=== PATIENT | female | born 1990 | race Two or more races ===

== ENCOUNTER 2024-05-23 06:37 | Emergency (ER) | payer MEDICAID, SELFPAY ==
[2024-05-23 06:38] VITALS: BMI 33.9
[2024-05-23 06:46] VITALS: BP 125/87; PULSE 116; RESP 20; TEMP 37; O2SAT 97
--- NOTE | 2024-05-23 06:49 | XR_ITS ---
Examination: CT abdomen and pelvis without contrast. Coronal 3-D reconstructions. Sagittal 2-D reconstructions. Date and time of exam:May 23, 2024 0921 hrs. Indications: Upper and lower abdominal pain with nausea vomiting today CTDI: vol (mGy): 11.36 DLP: (mGycm): 685 Technique: Axial images of the abdomen have been obtained, 3 mm slice thickness Intravenous contrast material has not been administered. Low dose protocols were performed. One or more of the following dose reduction techniques were used; automated exposure control, adjustment of the mA and/or KV according to patient size, use of iterative reconstruction technique. Findings: Fatty liver Spleen not enlarged. Contracted gallbladder Normal pancreas normal adrenal glands. No renal or ureteral calculi, no hydronephrosis. Normal appendix No bowel obstruction No diverticulitis Anteverted uterus Urinary bladder intact Impression: No renal or ureteral calculi, no hydronephrosis Moderate hepatomegaly fatty liver Normal appendix No bowel obstruction or diverticulitis
--- NOTE | 2024-05-23 06:49 | PD.EDADULT ---
ED General RME/HPI General Chief complaint: General Adult/Misc Complain Stated complaint: ABD PAIN,VOMITING,CRAMPS IN LEGS, LOWER BACK PAIN Time Seen by Provider: 05/23/24 06:38 Source: patient Arrival date/time: 05/23/24 06:37 33-year-old female with a history of type 2 diabetes presents to the emergency room with a chief complaint of left-sided flank pain, left lower abdominal pain and vomiting x 2 days Mode of arrival: ambulatory Limitations: no limitations Related Data Previous Rx's ?Medication ?Instructions ?Recorded ondansetron 4 mg disintegrating 4 mg PO Q8H PRN nausea and 12/30/23 tablet vomiting #30 tabs ibuprofen 600 mg tablet 600 mg PO Q8H PRN fever or pain 05/23/24 #20 tabs ondansetron 4 mg disintegrating 4 mg PO Q8H PRN nausea and 05/23/24 tablet vomiting #14 tabs Allergies Allergy/AdvReac Type Severity Reaction Status Date / Time No Known Allergies Allergy Verified 05/23/24 06:38 Review of Systems Review of Systems Systems Reviewed: All systems reviewed, normal except as documented Constitutional Constitutional: Reports system reviewed and no additional complaints, except as documented, Denies fatigue, Denies fever(s), Denies headache(s) and Denies weakness Eyes Eyes: Reports system reviewed and no additional complaints, except as documented, Denies blurry vision and Denies change in vision ENT Ears, Nose, Mouth, and Throat: Reports system reviewed and no additional complaints, except as documented, Denies otalgia, Denies headache(s), Denies nasal congestion, Denies throat swelling and Denies vertigo Cardiovascular Cardiovascular: Reports system reviewed and no additional complaints, except as documented, Denies chest pain, Denies dyspnea and Denies dyspnea on exertion Respiratory Respiratory: Reports system reviewed and no additional complaints, except as documented, Denies chest congestion, Denies cough, Denies dyspnea, Denies dyspnea on exertion and Denies wheezing Gastrointestinal Gastrointestinal: Reports system reviewed and no additional complaints, except as documented, Reports abdominal pain, Reports cramping, Reports nausea and Reports vomiting Genitourinary Genitourinary: Reports system reviewed and no additional complaints, except as documented, Denies abnormal vaginal bleeding and Denies dysuria Musculoskeletal Musculoskeletal: Reports system reviewed and no additional complaints, except as documented and Denies back pain Integumentary/Breasts Skin/Breast: Reports system reviewed and no additional complaints, except as documented and Denies wounds Neurologic Neurologic: Reports system reviewed and no additional complaints, except as documented, Denies confusion, Denies headache(s), Denies lack of coordination, Denies vertigo and Denies weakness Psychiatric Psychiatric: Reports system reviewed and no additional complaints, except as documented, Denies anxiety, Denies confusion, Denies depression, Denies paranoia, Denies suicidal ideation and Denies tactile hallucinations Endocrine Endocrine: Reports system reviewed and no additional complaints, except as documented and Denies fatigue Hematologic/Lymphatic Hematologic/Lymphatic: Reports system reviewed and no additional complaints, except as documented and Denies lymphadenopathy Allergic/Immunologic Allergic/Immunologic: Reports system reviewed and no additional complaints, except as documented, Denies throat swelling, Denies urticaria and Denies wheezing ED Exam General Limitations: Present no limitations General appearance: Present alert and in no apparent distress Head Head exam: Present atraumatic Eye Eye exam: Present normal appearance, PERRL and EOMI ENT ENT exam: Present normal exam, normal oropharynx and mucous membranes moist Neck Neck exam: Present normal inspection, full ROM and trachea midline Chest Chest inspection: Present normal inspection and symmetric chest wall rise Respiratory Respiratory exam: Present normal lung sounds bilaterally Cardiovascular Cardiovascular exam: Present regular rate, normal rhythm and normal heart sounds Abdominal Exam Abdominal exam: Present soft, tenderness and normal bowel sounds Abdominal tenderness: Present LLQ and mild Extremities Exam Extremities exam: Present normal inspection and full ROM Back Exam Back exam: Present normal inspection, full ROM and CVA tenderness (L) Neurological Exam Neurological exam: Present alert, oriented X3 and CN II-XII intact Psychiatric Psychiatric exam: Present normal affect and normal mood Skin Skin exam: Present warm, dry, intact and normal color Course Quality Measures none Orders Category Date Time Status CT abdomen pelvis wo con Stat Exams 05/23/24 06:49 Completed CBC Stat Lab 05/23/24 07:10 Completed CMP [Comprehensive Metabolic Panel] Stat Lab 05/23/24 07:10 Completed HCG Qualitative,Urine Stat Lab 05/23/24 07:05 Completed Lipase Stat Lab 05/23/24 07:10 Completed UA [Urinalysis] Stat Lab 05/23/24 07:05 Completed Urine Culture Stat Lab 05/23/24 07:05 Received HYDROcodone*/APAP 5/325 [[place] 5/325] Med 05/23/24 06:49 Discontinued 1 tab PO X1 ONE Vital Signs Vital signs: Vital Signs Temperature 98.6 F 05/23/24 06:46 Pulse Rate 116 H 05/23/24 06:46 Respiratory Rate 20 05/23/24 06:46 Blood Pressure 125/87 H 05/23/24 06:46 Pulse Oximetry (%) 97 05/23/24 06:46 Oxygen Delivery Method Room Air 05/23/24 06:46 O2 saturation 97% within normal limits [facility] Patient data External records reviewed:: [facility] previous records Clinical information provided by:: patient Social determinants that could affect healthcare access:: none Patient has the following chronic illnesses:: No chronic illness How is presenting disease/condition affected by chronic disease/condition?: no chronic disease Evaluation data The following diagnostics were reviewed and interpreted by me:: lab results and radiology exam(s) Lab and/or radiology exams considered but not ordered:: Labs and radiology exams considered and ordered Interpretation Summary: CT abdomen and pelvis-Findings: Fatty liver Spleen not enlarged. Contracted gallbladder Normal pancreas normal adrenal glands. No renal or ureteral calculi, no hydronephrosis. Normal appendix No bowel obstruction No diverticulitis Anteverted uterus Urinary bladder intact Impression: No renal or ureteral calculi, no hydronephrosis Moderate hepatomegaly fatty liver Normal appendix No bowel obstruction or diverticulitis Medications Medications considered but not ordered:: Medication given Medication administrations:: Medication Administration History Discontinued Medications Hydrocodone Bitart/Acetaminophen (Hydrocodone/Apap 5/325 Tablet) 1 tab PO X1 ONE Stop: 05/23/24 06:50 Last Admin: 05/23/24 07:58 Dose: 1 tab Documented By: LP Medication given Consultations Consultation(s) initiated? (list below): No Diagnosis Differential Diagnosis ED Complaint MDM: Renal calculi/pyelonephritis/diverticulosis/gastroenteritis Most likely diagnosis given after review of the tests above:: Gastroenteritis Admission Indicated Admission indicated?: not indicated Explain why admission is indicated or not indicated:: N/A Admission Request Was there a request for admission?: No Disposition Plan Disposition Plan: Discharge Discharge Attestation Discharge Attestation: The patient and all family members were given an opportunity to ask questions and understood the discharge instructions. Discharge instructions specifically effects, indications for sooner follow up or return to the emergency department, and the expected course of current diagnosis. Patient condition: Stable Medical Decision Making MDM Narrative MDM Narrative: 33-year-old female with a history of type 2 diabetes presents to the emergency room with a chief complaint of left-sided flank pain, left lower abdominal pain and vomiting x 2 days Clinically the patient appears nontoxic and in no apparent distress. Patient is hemodynamically stable Physical examination shows left CVA tenderness with palpation and left lower abdominal tenderness with deep palpation. The patient has been vomiting for the last 2 days. The patient is afebrile and there is no tenderness or pain to the right side upper or lower CT of the abdomen and pelvis was negative for any acute findings. Urinalysis was negative CBC CMP were negative for any leukocytosis Patient was discharged and educated to follow-up with primary care provider in the next 24 to 48 hours and return to the emergency room for any evidence of worsening signs or symptoms Differential Diagnosis Differential Diagnosis: Renal calculi/pyelonephritis/diverticulosis/gastroenteritis Lab Data 05/23/24 07:10 05/23/24 07:10 Labs: Lab Results 05/23/24 05/23/24 Range/Units 07:05 07:10 WBC 6.9 (3.6-11.0) Thou/mm3 RBC 4.62 (4.00-5.20) Miln/mm3 Hgb 13.6 (12.0-16.0) g/dL Hct 38.9 (36.0-46.0) % MCV 84 (80-100) fL MCH 29.4 (25.0-35.0) pg MCHC 35.0 (31.0-37.0) g/dl RDW Std Deviation 41.1 (36.4-46.3) fL Plt Count 189 (140-440) Thou/mm3 Neut % (Auto) 57 (37-80) % Lymph % (Auto) 35 (10-50) % [place] % (Auto) 7 (0-12) % Eos % (Auto) 0 (0-10) % Baso % (Auto) 0 (0-2.5) % Neut # (Auto) 4.0 (1.8-7.7) Thou/mm3 Lymph # (Auto) 2.4 (1.0-4.8) Thou/mm3 [place] # (Auto) 0.5 (0.0-0.8) Thou/mm3 Eos # (Auto) 0.0 (0.0-0.5) Thou/mm3 Baso # (Auto) 0.0 (0.0-0.2) Thou/mm3 Immature Gran # (Auto) 0.03 H (0.00-0.00) Thou/mm3 Absolute Nucleated RBC 0.00 (0.00-0.00) Thou/mm3 Immature Gran % 0 (0-0) % Nucleated RBC % 0 (0) /100 WBC Sodium 137 (136-145) mMol/L Potassium 4.0 (3.4-5.1) mMol/L Chloride 103 (98-107) mMol/L Carbon Dioxide 26.1 (20.0-31.0) mMol/L Anion Gap 8 (7-16) BUN 12 (9-23) mg/dL Creatinine 0.9 (0.6-1.3) mg/dL Estim Creat Clear Calc 101.5 (>60) mL/min eGFR > 60 (60 - ) See Note BUN/Creatinine Ratio 13 (12-20) Ratio Glucose 155 H (74-106) mg/dL Calculated Osmolality 276 (275-295) Calcium 9.3 (8.3-10.6) mg/dL Corrected Calcium 9.3 (8.5-10.1) mg/dL Total Bilirubin 1.0 (0.3-1.2) mg/dL AST 37 H (0-34) U/L ALT 46 (10-49) U/L Alkaline Phosphatase 90 (46-116) U/L Total Protein 7.4 (5.7-8.2) gm/dL Albumin 4.4 (3.5-5.0) gm/dL Globulin 3.0 (2.3-3.5) gm/dL Albumin/Globulin Ratio 1.5 (1.2-2.2) Lipase 54 H (12-53) U/L Ur Collection Type Clean Catch Urine Color Yellow (Lt Yel-Yel) Urine Clarity Clear (Clear/Hazy) Urine pH 6.0 (5.0-7.0) Ur Specific [place] 1.037 H (1.001-1.035) Urine Protein 3+ A (Neg - Trace) Urine Glucose (UA) 4+ A (Negative) Urine Ketones Negative (Negative) Urine Blood 1+ A (Negative) Urine Nitrite Negative (Negative) Urine Bilirubin Negative (Negative) Urine Urobilinogen (Auto) Negative (0.0-1.0) mg/dL Ur Leukocyte Esterase Negative (Negative) Urine RBC 3 (0-3) /hpf Urine WBC 3 (0-5) /hpf Ur Squamous Epith Cells 2 (0-5) /hpf Urine Bacteria None (None) Urine HCG, Qual Negative Discharge Plan Plan Patient Disposition: HOME (Self Care) Disposition Comment: Stable Prescriptions/Referrals Prescriptions/Med Rec: New ibuprofen 600 mg tablet 600 mg PO Q8H PRN (Reason: fever or pain) Qty: 20 0RF ondansetron 4 mg tablet,disintegrating 4 mg PO Q8H PRN (Reason: nausea and vomiting) Qty: 14 0RF No Action ondansetron 4 mg tablet,disintegrating 4 mg PO Q8H PRN (Reason: nausea and vomiting) Qty: 30 0RF Referrals: Brady Stephens MD [Primary Care Provider] - In 1 week Problem List Clinical Impression: Gastroenteritis Patient/Caregiver Discharge Instructions Education Materials: Understanding Colitis, ED Gastroenteritis, Noninfectious Additional Instructions: Please follow-up with your primary care provider in the next 24 to 48 hours. Medication was sent to your pharmacy to help you with your symptoms For any evidence of worsening signs or symptoms return the emergency room immediately Print Language: Bhutanese Stand Alone Forms: Gisselle Award Info., Patient Portal Info Letter PA/SHAR Supervising Physician PA/SHAR Supervising Physician: Dr. MERCHANT
[2024-05-23 07:21] LABS: Collection Type, Urine Clean Catch
[2024-05-23 07:32] LABS: Basophils % (Auto) 0 % (0-2.5); Eosinophils % (Auto) 0 % (0-10); Hematocrit 38.9 % (36.0-46.0); Hemoglobin 13.6 g/dL (12.0-16.0); Immature Granulocytes % (Auto) 0 % (0-0); Immature Granulocytes Auto 0.03 Thou/mm3 (0.00-0.00); Lymphocytes % (Auto) 35 % (10-50); Mean Corpuscular Hemoglobin 29.4 pg (25.0-35.0); Mean Corpuscular Volume 84 fL (80-100); Monocytes # (Auto) 0.5 Thou/mm3 (0.0-0.8); Monocytes % (Auto) 7 % (0-12); Neutrophils % (Auto) 57 % (37-80); Nucleated Red Blood Cell % 0 /100 WBC (0); Platelet Count 189 Thou/mm3 (140-440); RDW Standard Deviation 41.1 fL (36.4-46.3); Red Blood Count 4.62 Miln/mm3 (4.00-5.20); White Blood Count 6.9 Thou/mm3 (3.6-11.0)
[2024-05-23 07:36] LABS: Alanine Aminotransferase 46 U/L (10-49); Albumin, Serum 4.4 gm/dL (3.5-5.0); Albumin/Globulin Ratio 1.5 (1.2-2.2); Alkaline Phosphatase 90 U/L (46-116); Anion Gap 8 (7-16); Aspartate Amino Transferase 37 U/L (0-34); BUN/Creatinine Ratio 13 Ratio (12-20); Blood Urea Nitrogen 12 mg/dL (9-23); Calcium 9.3 mg/dL (8.3-10.6); Calcium (Corrected) 9.3 mg/dL (8.5-10.1); Carbon Dioxide 26.1 mMol/L (20.0-31.0); Chloride 103 mMol/L (98-107); Creatinine (Component) 0.9 mg/dL (0.6-1.3); Estimated Creatinine Clearance 101.5 mL/min (>60); Glucose 155 mg/dL (74-106); Lipase 54 U/L (12-53); Osmolality,Calculated 276 (275-295); Sodium 137 mMol/L (136-145); Total Protein 7.4 gm/dL (5.7-8.2); eGFR > 60 See Note
[2024-05-23 07:39] LABS: HCG Qualitative,Urine Negative
[2024-05-23 07:46] LABS: Bilirubin,Urine Negative (Negative); Blood,Urine 1+ (Negative); Clarity,Urine Clear (Clear/Hazy); Color,Urine Yellow (Lt Yel-Yel); Glucose, Urine 4+ (Negative); Ketones,Urine Negative (Negative); Leukocyte Esterase,Urine Negative (Negative); Nitrite,Urine Negative (Negative); Protein,Urine 3+ (Neg - Trace); RBC,Urine 3 /hpf (0-3); Specific Gravity,Urine 1.037 (1.001-1.035); Squamous Epithelial Cell,Urine 2 /hpf (0-5); Urobilinogen,Urine Negative mg/dL (0.0-1.0); WBC,Urine 3 /hpf (0-5)
[2024-05-23] MEDS: HYDROcodone/APAP 5/325 TABLET 1 TAB PO (07:58)
[2024-05-23 09:27] VITALS: BP 115/79; PULSE 99; RESP 18; TEMP 36.8; O2SAT 97
[2024-05-23 10:52] LABS: Lymphocytes # (Auto) 2.4 Thou/mm3 (1.0-4.8)
== END 2024-05-23 10:24 | disposition home or self-care (01) ==
PROVIDERS: Nurse Practitioner Family; Emergency Provider Emergency Medicine; PCP Family Medicine
DX: K52.9 Noninfective gastroenteritis and colitis, unspecified (principal)
CPT/HCPCS: 36415; 74176; 80053; 81001; 81025; 83690; 85025; 87086; 99284; A9270

== ENCOUNTER 2024-07-09 11:31 | Emergency (ER) | payer MEDICAID, SELFPAY ==
[2024-07-09 11:34] VITALS: BMI 32.8
[2024-07-09 11:52] VITALS: BP 152/95; PULSE 96; RESP 18; TEMP 36.7; O2SAT 100
--- NOTE | 2024-07-09 11:55 | EDNOTE_ITS ---
<Statement entered by Gwen Meraz MD - 07/15/24 02:10> As co-signing physician, I was present and available for consult prn. I concur with the plan and care as documented by the midlevel provider. ED General RME/HPI General Chief complaint: Vaginal Bleeding Stated complaint: VAG BLEEDING +PREG TEST 2 DAYS AGO Time Seen by Provider: 07/09/24 11:43 Arrival date/time: 07/09/24 11:31 CC: Vaginal spotting with lower abdominal cramping low back pain HPI onset this morning. Patient is a G3, P1 last menstrual cycle estimated in March. Denies fever chills shortness of breath difficulty breathing. Denies any bloody urination painful urination diarrhea or constipation. Related Data Previous Rx's ?Medication ?Instructions ?Recorded ondansetron 4 mg disintegrating 4 mg PO Q8H PRN nausea and 12/30/23 tablet vomiting #30 tabs ibuprofen 600 mg tablet 600 mg PO Q8H PRN fever or p ain 05/23/24 #20 tabs ondansetron 4 mg disintegrating 4 mg PO Q8H PRN nausea and 05/23/24 tablet vomiting #14 tabs Allergies Allergy/AdvReac Type Severity Reaction Status Date / Time No Known Allergies Allergy Verified 07/10/24 10:45 Review of Systems Review of Systems Narrative Review of Systems: GEN: No fever, no chills, no weight loss EYES: No discharge, no visual changes, no pain HEENT: No ear pain, no congestion, no sore throat PULM: No shortness of breath, no cough, no congestion CV: No chest pain, no dyspnea on exertion, no palpitations GI: No nausea, no vomiting, no diarrhea, no pain, no constipation : No frequency, no urgency, no dysuria MUSC/SKEL: No joint pain, no back pain SKIN: No rash PSYCH: No hallucinations, no depression HEME/LYMPH: No easy bleeding or bruising tendencies NEURO: No weakness, no headache Past Medical History Past Medical History CARDIAC: Negative Congestive Heart Failure RESPIRATORY: Negative Chronic Obstructive Pulmonary Disease (COPD) GENITOURINARY: Negative Renal Disease ENDOCRINE: Positive Diabetes Mellitus Type 2; Negative Diabetes Mellitus Type 1 Social History SMOKING STATUS: Never smoker ED Exam Narrative Physical exam: [General: Obese not in any acute distress Head normocephalic HEENT: Within acceptable limits Neck is supple nontender Chest equal chest rise nontender to palpation Respiratory: Clear to auscultation no wheezes crackles or rubs CV: Rate rhythm is regular no murmurs rubs or clicks Abdomen is distended secondary to body habitus soft nontender no masses positive bowel sounds all 4 quadrants Back: No CVA tenderness no spinous process tenderness from cervical spine thoracic and lumbar spine Skin: Intact no petechiae rash induration ulceration or crepitus Extremities: Moving all extremities against resistance cap refill less than 2 seconds neurosensory intact Neuro: Awake alert oriented x3 Glascow coma 15 no focal deficits] Course Quality Measures none Orders Category Date Time Status ABO/RH Type Stat Lab 07/09/24 12:08 Completed Beta HCG,Quantitative Stat Lab 07/09/24 12:08 Completed CBC Stat Lab 07/09/24 12:08 Completed CMP [Comprehensive Metabolic Panel] Stat Lab 07/09/24 12:08 Completed Vital Signs Vital signs: Vital Signs Temperature 98.0 F 07/09/24 11:52 Pulse Rate 96 07/09/24 11:52 Respiratory Rate 18 07/09/24 11:52 Blood Pressure 152/95 H 07/09/24 11:52 Pulse Oximetry (%) 100 07/09/24 11:52 Oxygen Delivery Method Room Air 07/09/24 11:52 Discharge Plan Plan Patient Disposition: Left Against Medical Advice Prescriptions/Referrals Prescriptions/Med Rec: No Action ibuprofen 600 mg tablet 600 mg PO Q8H PRN (Reason: fever or pain) Qty: 20 0RF ondansetron 4 mg tablet,disintegrating 4 mg PO Q8H PRN (Reason: nausea and vomiting) Qty: 14 0RF ondansetron 4 mg tablet,disintegrating 4 mg PO Q8H PRN (Reason: nausea and vomiting) Qty: 30 0RF Referrals: Brady Stephens MD [Primary Care Provider] - In 1 week Problem List Clinical Impression: Left against medical advice Patient/Caregiver Discharge Instructions Print Language: Macedonian PA/CUSHION BUILDER Supervising Physician PA/CUSHION BUILDER Supervising Physician: Javid Patterson ENP MDM Patient Acuity Low Acuity (complete MDM as needed) Clinical Information Provided by: patient Medical Records reviewed [facility] Chronic Illness/Social Conditions which may negatively complicate care or outcome(s)-explain: None or not applicable
[2024-07-09 12:28] LABS: Basophils % (Auto) 0 % (0-2.5); Eosinophils # (Auto) 0.1 Thou/mm3 (0.0-0.5); Eosinophils % (Auto) 2 % (0-10); Hematocrit 36.7 % (36.0-46.0); Hemoglobin 12.9 g/dL (12.0-16.0); Immature Granulocytes % (Auto) 0 % (0-0); Immature Granulocytes Auto 0.03 Thou/mm3 (0.00-0.00); Lymphocytes % (Auto) 30 % (10-50); Mean Corpuscular HGB Conc 35.1 g/dl (31.0-37.0); Mean Corpuscular Hemoglobin 29.3 pg (25.0-35.0); Mean Corpuscular Volume 83 fL (80-100); Monocytes # (Auto) 0.4 Thou/mm3 (0.0-0.8); Monocytes % (Auto) 7 % (0-12); Neutrophils # (Auto) 4.1 Thou/mm3 (1.8-7.7); Neutrophils % (Auto) 61 % (37-80); Nucleated Red Blood Cell % 0 /100 WBC (0); Platelet Count 246 Thou/mm3 (140-440); RDW Standard Deviation 39.5 fL (36.4-46.3); White Blood Count 6.8 Thou/mm3 (3.6-11.0)
[2024-07-09 12:45] LABS: Alanine Aminotransferase 16 U/L (10-49); Albumin, Serum 4.5 gm/dL (3.5-5.0); Albumin/Globulin Ratio 1.6 (1.2-2.2); Alkaline Phosphatase 64 U/L (46-116); Anion Gap 9 (7-16); Aspartate Amino Transferase 15 U/L (0-34); BUN/Creatinine Ratio 13 Ratio (12-20); Bilirubin,Total 0.4 mg/dL (0.3-1.2); Blood Urea Nitrogen 9 mg/dL (9-23); Calcium 9.6 mg/dL (8.3-10.6); Calcium (Corrected) 9.6 mg/dL (8.5-10.1); Carbon Dioxide 21.7 mMol/L (20.0-31.0); Chloride 101 mMol/L (98-107); Creatinine (Component) 0.7 mg/dL (0.6-1.3); Estimated Creatinine Clearance 128.2 mL/min (>60); Globulin 2.8 gm/dL (2.3-3.5); Glucose 273 mg/dL (74-106); Osmolality,Calculated 273 (275-295); Sodium 132 mMol/L (136-145); Total Protein 7.3 gm/dL (5.7-8.2); eGFR > 60 See Note
[2024-07-09 12:54] LABS: Beta HCG,Quantitative 3223 mIU/mL (<5.0)
--- NOTE | 2024-07-09 13:29 | PC.NURSE ---
AMA FORM SIGNED, PATIENT STATES SHE COULD NOT WAIT FOR US. ENCOURAGED TO RETURN.
== END 2024-07-09 13:31 | disposition left against medical advice (07) ==
LOC: SERX 12:57
PROVIDERS: Registered Nurse General Practice; Emergency Provider Emergency Medicine; PCP Family Medicine
DX: N93.9 Abnormal uterine and vaginal bleeding, unspecified (principal); R10.30 Lower abdominal pain, unspecified; M54.50 Low back pain, unspecified; Z53.29 Procedure and treatment not carried out because of patient's decision for other reasons
CPT/HCPCS: 36415; 80053; 81001; 84702; 85025; 86900; 86901; 99281

== ENCOUNTER 2024-07-10 10:41 | Emergency (ER) | payer MEDICAID, SELFPAY ==
[2024-07-10 10:42] VITALS: BMI 32.8
[2024-07-10 10:50] VITALS: BP 147/92; PULSE 94; RESP 16; TEMP 36.8; O2SAT 99
--- NOTE | 2024-07-10 10:50 | EDNOTE_ITS ---
ED OB Contraction Preg RMI/HPI General Chief complaint: Vaginal Bleeding Stated complaint: POSSIBLE 12WK PREG HAVING VAG SPOTTING Time Seen by Provider: 07/10/24 10:47 Arrival date/time: 07/10/24 10:41 33-year-old female G3, presents the emergency department today states she has had vaginal spotting she reports he is but does not know how far along she is reports her periods are irregular last period that was in March there are no other associated symptoms or aggravating factors no other modifying factors, patient denies taking medication before coming to ER today Limitations: no limitations Related Data Previous Rx's ?Medication ?Instructions ?Recorded ondansetron 4 mg disintegrating 4 mg PO Q8H PRN nausea and 12/30/23 tablet vomiting #30 tabs ibuprofen 600 mg tablet 600 mg PO Q8H PRN fever or p ain 05/23/24 #20 tabs ondansetron 4 mg disintegrating 4 mg PO Q8H PRN nausea and 05/23/24 tablet vomiting #14 tabs Allergies Allergy/AdvReac Type Severity Reaction Status Date / Time No Known Allergies Allergy Verified 07/10/24 10:45 Review of Systems Review of Systems Systems Reviewed: All systems reviewed, normal except as documented Constitutional Constitutional: Reports system reviewed and no additional complaints, except as documented, Denies fever(s) and Denies headache(s) Eyes Eyes: Reports system reviewed and no additional complaints, except as documented and Denies blurry vision ENT Ears, Nose, Mouth, and Throat: Reports system reviewed and no additional complaints, except as documented, Denies headache(s), Denies nasal congestion and Denies nasal discharge Cardiovascular Cardiovascular: Reports system reviewed and no additional complaints, except as documented, Denies chest pain and Denies dyspnea Respiratory Respiratory: Reports system reviewed and no additional complaints, except as documented, Denies chest congestion, Denies cough and Denies dyspnea Gastrointestinal Gastrointestinal: Reports system reviewed and no additional complaints, except as documented and Denies abdominal pain Genitourinary Genitourinary: Reports system reviewed and no additional complaints, except as documented and Reports abnormal vaginal bleeding Integumentary/Breasts Skin/Breast: Reports system reviewed and no additional complaints, except as documented and Denies rash Neurologic Neurologic: Reports system reviewed and no additional complaints, except as documented, Reports as per HPI and Denies headache(s) Past Medical History Past Medical History CARDIAC: Negative Congestive Heart Failure RESPIRATORY: Negative Chronic Obstructive Pulmonary Disease (COPD) GENITOURINARY: Negative Renal Disease ENDOCRINE: Positive Diabetes Mellitus Type 2; Negative Diabetes Mellitus Type 1 Social History SMOKING STATUS: Never smoker ED Exam General Limitations: Present no limitations General appearance: Present alert and in no apparent distress Head Head exam: Present atraumatic Eye Eye exam: Present normal appearance, PERRL and EOMI ENT ENT exam: Present normal exam, normal oropharynx and mucous membranes moist Neck Neck exam: Present normal inspection, full ROM and trachea midline Chest Chest inspection: Present normal inspection and symmetric chest wall rise Respiratory Respiratory exam: Present normal lung sounds bilaterally Cardiovascular Cardiovascular exam: Present regular rate, normal rhythm and normal heart sounds Abdominal Exam Abdominal exam: Present soft and normal bowel sounds Extremities Exam Extremities exam: Present normal inspection and full ROM Back Exam Back exam: Present normal inspection and full ROM Neurological Exam Neurological exam: Present alert, oriented X3 and CN II-XII intact Psychiatric Psychiatric exam: Present normal affect and normal mood Skin Skin exam: Present warm, dry, intact and normal color Course Quality Measures none Orders Category Date Time Status US OB <= 14 weeks fetus Stat Exams 07/10/24 10:50 Completed Beta HCG,Quantitative Stat Lab 07/10/24 10:54 Completed CBC Stat Lab 07/10/24 10:54 Completed Comprehensive Metabolic Panel Stat Lab 07/10/24 10:54 Completed UA [Urinalysis] Stat Lab 07/10/24 11:10 Completed Urine Culture Stat Lab 07/10/24 11:10 Received Vital Signs Vital signs: Vital Signs Temperature 98.2 F 07/10/24 10:50 Pulse Rate 94 07/10/24 10:50 Respiratory Rate 16 07/10/24 10:50 Blood Pressure 147/92 H 07/10/24 10:50 Pulse Oximetry (%) 99 07/10/24 10:50 Oxygen Delivery Method Room Air 07/10/24 10:50 O2 saturation 98% on room air within normal limits Vaginal Bleeding MDM Narrative MDM Narrative: 33-year-old female G3, presents the emergency department today states she has had vaginal spotting she reports he is but does not know how far along she is reports her periods are irregular last period that was in March there are no other associated symptoms or aggravating factors no other modifying factors, patient denies taking medication before coming to ER today On exam patient well-appearing patient does not appear ill or toxic in no acute distress Patient was seen yesterday but eloped prior to lab work and imaging being com pleted Lab work and imaging completed at this time Based on examination lab work and imaging patient either has a early or the patient has a demise. Explained to the patient that this is her baseline today and she needs to have repeat lab work and imaging in 3 to 5 days to confirm viable at hCG is trending upward Patient data External records reviewed:: [facility] previous records Clinical information provided by:: patient Social determinants that could affect healthcare access:: none Patient has the following chronic illnesses:: diabetes How is presenting disease/condition affected by chronic disease/condition?: no chronic disease Evaluation data The following diagnostics were reviewed and interpreted by me:: lab results and radiology exam(s) Lab and/or radiology exams considered but not ordered:: Labs radiology obtained Interpretation Summary: Reviewed by me Medications / Prescriptions Medications or Prescriptions considered but not ordered:: Given Medication administrations:: Given Consultations Consultation(s) initiated? (list below): No Diagnosis Vaginal Bleeding Differential Diagnosis: missed and threatened Most likely diagnosis given after review of the tests above:: Vaginal bleeding Admission Indicated Admission indicated?: not indicated Admission Request Was there a request for admission?: No Disposition Plan Disposition Plan: Discharge Discharge Attestation Discharge Attestation: The patient and all family members were given an opportunity to ask questions and understood the discharge instructions. Discharge instructions specifically effects, indications for sooner follow up or return to the emergency department, and the expected course of current diagnosis. Patient condition: Stable Discharge Plan Plan Patient Disposition: HOME (Self Care) Disposition Comment: Stable Prescriptions/Referrals Prescriptions/Med Rec: No Action ibuprofen 600 mg tablet 600 mg PO Q8H PRN (Reason: fever or pain) Qty: 20 0RF ondansetron 4 mg tablet,disintegrating 4 mg PO Q8H PRN (Reason: nausea and vomiting) Qty: 14 0RF ondansetron 4 mg tablet,disintegrating 4 mg PO Q8H PRN (Reason: nausea and vomiting) Qty: 30 0RF Referrals: No Primary/Family,Physician [Primary Care Provider] - 07/11/24 Problem List Clinical Impression: Subchorionic bleed, , threatened Patient/Caregiver Discharge Instructions Education Materials: Bleeding During Early Additional Instructions: Please have repeat lab work and ultrasound in 1 week for worsening symptoms return immediately Print Language: Northern Irish Stand Alone Forms: Gisselle Award Info., Patient Portal Info Letter PA/THERMODYNAMICS ENGINEER Supervising Physician PA/THERMODYNAMICS ENGINEER Supervising Physician: Dr [email or web address]
--- NOTE | 2024-07-10 10:50 | XR_ITS ---
Examination: Complete OB ultrasound, less than 14 weeks, transabdominal Date and time of exam: July 11, 1999 2512 0 5:00 PM INDICATIONS: Vaginal bleeding beginning 3 days ago Technique: Obstetrical ultrasound images less than 14 weeks performed via transabdominal imaging Findings: Uterus 10.5 cm, intrauterine gestational sac 0.9 cm corresponds to 5 weeks 5 day gestational age No pole, no cardiac activity 8 x 13 mm subchorionic hemorrhage Right ovary 4.4 cm arterial flow 3.0 cm cyst Left ovary 3.8 cm arterial flow IMPRESSION: Empty intrauterine gestational sac corresponding to 5 weeks 5 day gestational age Recommend short-term follow-up transvaginal pelvic sonography to document viability
[2024-07-10 11:08] LABS: Basophils % (Auto) 0 % (0-2.5); Eosinophils # (Auto) 0.1 Thou/mm3 (0.0-0.5); Eosinophils % (Auto) 2 % (0-10); Hematocrit 37.1 % (36.0-46.0); Immature Granulocytes % (Auto) 0 % (0-0); Immature Granulocytes Auto 0.02 Thou/mm3 (0.00-0.00); Lymphocytes # (Auto) 2.4 Thou/mm3 (1.0-4.8); Lymphocytes % (Auto) 35 % (10-50); Mean Corpuscular Volume 83 fL (80-100); Monocytes # (Auto) 0.5 Thou/mm3 (0.0-0.8); Monocytes % (Auto) 7 % (0-12); Neutrophils # (Auto) 3.9 Thou/mm3 (1.8-7.7); Neutrophils % (Auto) 56 % (37-80); Nucleated Red Blood Cell % 0 /100 WBC (0); Platelet Count 256 Thou/mm3 (140-440); RDW Standard Deviation 39.1 fL (36.4-46.3); Red Blood Count 4.48 Miln/mm3 (4.00-5.20); White Blood Count 6.9 Thou/mm3 (3.6-11.0)
[2024-07-10 11:18] LABS: Collection Type, Urine Clean Catch
[2024-07-10 11:23] LABS: Bilirubin,Urine Negative (Negative); Blood,Urine Negative (Negative); Clarity,Urine Clear (Clear/Hazy); Color,Urine Yellow (Lt Yel-Yel); Glucose, Urine 2+ (Negative); Hyaline Casts,Urine < 1 /hpf (0-1); Ketones,Urine Negative (Negative); Leukocyte Esterase,Urine Negative (Negative); Nitrite,Urine Negative (Negative); PH,Urine 5.5 (5.0-7.0); Protein,Urine 2+ (Neg - Trace); RBC,Urine 5 /hpf (0-3); Specific Gravity,Urine 1.029 (1.001-1.035); Squamous Epithelial Cell,Urine 6 /hpf (0-5); Urobilinogen,Urine Negative mg/dL (0.0-1.0); WBC,Urine 3 /hpf (0-5)
[2024-07-10 11:26] LABS: Alanine Aminotransferase 15 U/L (10-49); Albumin, Serum 4.4 gm/dL (3.5-5.0); Albumin/Globulin Ratio 1.6 (1.2-2.2); Alkaline Phosphatase 64 U/L (46-116); Anion Gap 9 (7-16); Aspartate Amino Transferase 17 U/L (0-34); BUN/Creatinine Ratio 17 Ratio (12-20); Bilirubin,Total 0.5 mg/dL (0.3-1.2); Blood Urea Nitrogen 10 mg/dL (9-23); Calcium 9.6 mg/dL (8.3-10.6); Calcium (Corrected) 9.6 mg/dL (8.5-10.1); Carbon Dioxide 22.7 mMol/L (20.0-31.0); Chloride 103 mMol/L (98-107); Creatinine (Component) 0.6 mg/dL (0.6-1.3); Estimated Creatinine Clearance 149.6 mL/min (>60); Globulin 2.8 gm/dL (2.3-3.5); Glucose 192 mg/dL (74-106); Osmolality,Calculated 274 (275-295); Potassium 3.8 mMol/L (3.4-5.1); Sodium 135 mMol/L (136-145); Total Protein 7.2 gm/dL (5.7-8.2); eGFR > 60 See Note
[2024-07-10 11:49] LABS: Beta HCG,Quantitative 3903 mIU/mL (<5.0)
== END 2024-07-10 14:07 | disposition home or self-care (01) ==
PROVIDERS: Nurse Practitioner Primary Care; Emergency Provider Emergency Medicine
DX: O20.0 Threatened abortion (principal)
CPT/HCPCS: 36415; 76801; 80053; 81001; 84702; 85025; 87086; 99284

== ENCOUNTER 2024-07-16 08:53 | Emergency (ER) | payer MEDICAID, SELFPAY ==
--- NOTE | 2024-07-16 08:58 | XR_ITS ---
Examination: OB Transvaginal ultrasound of the pelvis, complete Technique: Transvaginal sonographic images pelvis performed using benoit scale imaging Exam date and time: July 16, 2024 1014 hours INDICATIONS: Empty intrauterine gestational sac on pelvic sonogram July 10, 2024, pelvic pain this week FINDINGS: Uterus 11.5 cm pole 0.4 cm corresponds to 6 week 0 day gestational age Cardiac motion 132 BPM Subchorionic hemorrhage 15 x 9 x 16 mm Right ovary 3.4 cm arterial flow 21 mm cyst Left ovary 4.1 cm arterial flow small follicles IMPRESSION: Viable intrauterine gestation 6 weeks 0 days.
[2024-07-16 09:06] VITALS: BP 131/88; PULSE 89; RESP 16; TEMP 36.8; O2SAT 99; BMI 34.4
[2024-07-16 09:17] LABS: Basophils % (Auto) 0 % (0-2.5); Eosinophils # (Auto) 0.2 Thou/mm3 (0.0-0.5); Eosinophils % (Auto) 2 % (0-10); Hematocrit 36.2 % (36.0-46.0); Hemoglobin 12.8 g/dL (12.0-16.0); Immature Granulocytes % (Auto) 0 % (0-0); Immature Granulocytes Auto 0.03 Thou/mm3 (0.00-0.00); Lymphocytes # (Auto) 2.6 Thou/mm3 (1.0-4.8); Lymphocytes % (Auto) 33 % (10-50); Mean Corpuscular HGB Conc 35.4 g/dl (31.0-37.0); Mean Corpuscular Volume 82 fL (80-100); Monocytes # (Auto) 0.6 Thou/mm3 (0.0-0.8); Monocytes % (Auto) 7 % (0-12); Neutrophils # (Auto) 4.6 Thou/mm3 (1.8-7.7); Neutrophils % (Auto) 57 % (37-80); Nucleated Red Blood Cell % 0 /100 WBC (0); Platelet Count 231 Thou/mm3 (140-440); RDW Standard Deviation 39.3 fL (36.4-46.3); Red Blood Count 4.41 Miln/mm3 (4.00-5.20)
[2024-07-16 09:49] LABS: Beta HCG,Quantitative > 5000 mIU/mL (<5.0)
--- NOTE | 2024-07-16 11:19 | EDNOTE_ITS ---
ED OB Contraction Preg RMI/HPI General Chief complaint: OB/Uterine Contractions Stated complaint: RETURNED FOR U/S & HCG INST LAST WEEK Time Seen by Provider: 07/16/24 08:56 Arrival date/time: 07/16/24 08:53 33-year-old female present to the Emergency Department today for repeat ultrasound lab work patient was seen by myself on last visit Limitations: no limitations Related Data Previous Rx's ?Medication ?Instructions ?Recorded ondansetron 4 mg disintegrating 4 mg PO Q8H PRN nausea and 12/30/23 tablet vomiting #30 tabs ibuprofen 600 mg tablet 600 mg PO Q8H PRN fever or p ain 05/23/24 #20 tabs ondansetron 4 mg disintegrating 4 mg PO Q8H PRN nausea and 05/23/24 tablet vomiting #14 tabs Allergies Allergy/AdvReac Type Severity Reaction Status Date / Time No Known Allergies Allergy Verified 07/16/24 08:55 Review of Systems Review of Systems Systems Reviewed: All systems reviewed, normal except as documented Constitutional Constitutional: Reports system reviewed and no additional complaints, except as documented, Denies fever(s) and Denies headache(s) Eyes Eyes: Reports system reviewed and no additional complaints, except as documented and Denies blurry vision ENT Ears, Nose, Mouth, and Throat: Reports system reviewed and no additional complaints, except as documented, Denies headache(s), Denies nasal congestion and Denies nasal discharge Cardiovascular Cardiovascular: Reports system reviewed and no additional complaints, except as documented, Denies chest pain and Denies dyspnea Respiratory Respiratory: Reports system reviewed and no additional complaints, except as documented, Denies chest congestion, Denies cough and Denies dyspnea Gastrointestinal Gastrointestinal: Reports system reviewed and no additional complaints, except as documented and Denies abdominal pain Genitourinary Genitourinary: Reports system reviewed and no additional complaints, except as documented and Reports abnormal vaginal bleeding Integumentary/Breasts Skin/Breast: Reports system reviewed and no additional complaints, except as documented and Denies rash Neurologic Neurologic: Reports system reviewed and no additional complaints, except as documented, Reports as per HPI and Denies headache(s) Past Medical History Past Medical History CARDIAC: Negative Congestive Heart Failure RESPIRATORY: Negative Chronic Obstructive Pulmonary Disease (COPD) GENITOURINARY: Negative Renal Disease ENDOCRINE: Positive Diabetes Mellitus Type 2; Negative Diabetes Mellitus Type 1 Surgical History SURGICAL: Positive Section Social History SMOKING STATUS: Never smoker ED Exam General Limitations: Present no limitations General appearance: Present alert and in no apparent distress Head Head exam: Present atraumatic, normocephalic and normal inspection Eye Eye exam: Present normal appearance, PERRL and EOMI; Absent conjunctival injection ENT ENT exam: Present normal exam, normal oropharynx and mucous membranes moist Neck Neck exam: Present normal inspection, full ROM and trachea midline Chest Chest inspection: Present normal inspection and symmetric chest wall rise Respiratory Respiratory exam: Present normal lung sounds bilaterally; Absent respiratory distress Cardiovascular Cardiovascular exam: Present regular rate, normal rhythm and normal heart sounds Abdominal Exam Abdominal exam: Present soft and normal bowel sounds; Absent distention, tenderness, guarding, rebound or rigidity Extremities Exam Extremities exam: Present normal inspection and full ROM Back Exam Back exam: Present normal inspection and full ROM Neurological Exam Neurological exam: Present alert, oriented X3, CN II-XII intact, normal gait and reflexes normal; Absent motor sensory deficit Psychiatric Psychiatric exam: Present normal affect and normal mood Skin Skin exam: Present warm, dry, intact and normal color Course Quality Measures none Orders Category Date Time Status US OB transvaginal Stat Exams 07/16/24 08:58 Completed Beta HCG,Quantitative Stat Lab 07/16/24 09:03 Completed CBC Stat Lab 07/16/24 09:03 Completed Vital Signs Vital signs: Vital Signs Temperature 98.2 F 07/16/24 09:06 Pulse Rate 89 07/16/24 09:06 Respiratory Rate 16 07/16/24 09:06 Blood Pressure 131/88 H 07/16/24 09:06 Pulse Oximetry (%) 99 07/16/24 09:06 Oxygen Delivery Method Room Air 07/16/24 09:06 O2 saturation 99% room air within limits OB/Uterine Contractions MDM Narrative MDM Narrative:: 33-year-old female present to the Emergency Department today for repeat ultraso und lab work patient was seen by myself on last visit On exam patient well-appearing patient does not appear ill or toxic no acute distress Lab work and imaging obtained no acute emergent findings Patient discharged home in no distress to follow-up with primary care doctor in the next 24 to 48 hours and for any worsening symptoms to return to the ER immediately Patient data External records reviewed:: [facility] previous records Clinical information provided by:: patient Social determinants that could affect healthcare access:: none Patient has the following chronic illnesses:: None How is presenting disease/condition affected by chronic disease/condition?: no chronic disease Evaluation data The following diagnostics were reviewed and interpreted by me:: lab results and radiology exam(s) Lab and/or radiology exams considered but not ordered:: Labs radiology obtain Interpretation Summary: Reviewed by me Medications / Prescriptions Medications or Prescriptions considered but not ordered:: Given Medication administrations:: Given Consultations Consultation(s) initiated? (list below): No Diagnosis OB Contractions Differential Diagnosis: other (Missed , threatened ) Most likely diagnosis given after review of the tests above:: Subchronic bleed , viable Admission Indicated Admission indicated?: not indicated Explain why admission is indicated or not indicated:: No criteria Admission Request Was there a request for admission?: No Disposition Plan Disposition Plan: Discharge Discharge Attestation Discharge Attestation: The patient and all family members were given an opportunity to ask questions and understood the discharge instructions. Discharge instructions specifically effects, indications for sooner follow up or return to the emergency department, and the expected course of current diagnosis. Patient condition: Stable Discharge Plan Plan Patient Disposition: HOME (Self Care) Discharge Disposition comment: Stable Prescriptions/Referrals Prescriptions/Med Rec: No Action ibuprofen 600 mg tablet 600 mg PO Q8H PRN (Reason: fever or pain) Qty: 20 0RF ondansetron 4 mg tablet,disintegrating 4 mg PO Q8H PRN (Reason: nausea and vomiting) Qty: 14 0RF ondansetron 4 mg tablet,disintegrating 4 mg PO Q8H PRN (Reason: nausea and vomiting) Qty: 30 0RF Referrals: Brady Stephens MD [Primary Care Provider] - In 1 week Problem List Clinical Impression: Subchorionic bleed Patient/Caregiver Discharge Instructions Education Materials: Bleeding During Early Additional Instructions: Please follow up with your COATER OPERATOR doctor in the next 24-48hrs for any worsening symptoms return here immediately Print Language: Polish Stand Alone Forms: Gisselle Award Info., Patient Portal Info Letter PA/FIELD [employer] FIRE CONTROL MAN Supervising Physician PA/[employer]OL MAN Supervising Physician: Dr. torres
[2024-07-16 11:26] VITALS: BP 139/93; PULSE 99; RESP 18; TEMP 36.7; O2SAT 100
== END 2024-07-16 11:28 | disposition home or self-care (01) ==
PROVIDERS: Nurse Practitioner Primary Care; Emergency Provider Emergency Medicine; PCP Family Medicine
DX: O20.8 Other hemorrhage in early pregnancy (principal); Z3A.01 Less than 8 weeks gestation of pregnancy
CPT/HCPCS: 36415; 76817; 84702; 85025; 99284

== ENCOUNTER 2024-07-19 09:42 | Outpatient (AMB) | payer MEDICAID, SELFPAY ==
--- NOTE | 2024-07-19 09:53 | OBCLNT_ITS ---
Allergies/Home Meds Allergies & Medications Allergies No Known Allergies Allergy (Verified 07/19/24 09:54) Medication Reconciliation ondansetron 4 mg disintegrating tablet 4 mg PO Q8H PRN nausea and vomiting #30 tabs 12/30/23 [Rx] ibuprofen 600 mg tablet 600 mg PO Q8H PRN fever or pain #20 tabs 05/23/24 [Rx] ondansetron 4 mg disintegrating tablet 4 mg PO Q8H PRN nausea and vomiting #14 tabs 05/23/24 [Rx] insulin aspart U-100 100 unit/mL (3 mL) subcutaneous pen (Novolog FlexPen U-100 Insulin aspart) 15 unit subcut TID 07/19/24 [History Confirmed 07/19/24] insulin detemir U-100 100 unit/mL (3 mL) subcutaneous pen unit subcut 07/19/24 [History Confirmed 07/19/24] labetalol 200 mg tablet 200 mg PO BID 30 days #60 tabs 07/19/24 [Rx] vits no.126-ferrous fum 28 mg iron-folic acid 800 mcg tablet (Classic ) 0.126 - 28 tab PO DAILY 30 days #60 tabs 07/19/24 [Rx] Intake Visit Data Collection New Patient or Established: Established Patient (seen at [facility] within 3 years) Reason for Visit:: OBI Seen by Clinical Staff ONLY (RN/MA): No Fur Blowing Machine Operator Required: No Do You Feel Safe at Home: Yes Authorities Contacted: N/A PCP or OBGYN visit in last 3 months: Yes Date of Last PCP or OBGYN visit: 07/16/24 Hx Now: Yes Are you currently on any form of Control: No Last menstrual period: 04/07/24 Pain Present Currently: No Pain Scale Used: Mccarty-Ohara/Numerical Pain scale:: 0 Smoking Status Smoking Status: Never smoker Questionnaires Covid-19 Vaccine Questionnaire Has patient been vacinated for Covid-19 Have you been vacinated for Covid-19: No PHQ-9 PHQ-2 Over the last 2 weeks, how often have you been bothered by any of the following problems? 1. Little interest or pleasure in doing things: not at all 2. Feeling down, depressed, or hopeless: not at all Total score: 0 PHQ-9 3. Trouble falling or staying asleep, or sleeping too much: Not at all 4. Feeling tired or having little energy: Not at all 5. Poor appetite or overeating: Not at all 6. Feeling bad about yourself - or that you are a failure or have let yourself or your family down: Not at all 7. Trouble concentrating on things, such as reading the newspaper or watching television: Not at all 8. Moving or speaking so slowly that other people could have noticed? - Or the opposite - being so fidgety or restless that you have been moving around a lot more than usual: not at all 9. Thoughts that you would be better off or of hurting yourself in some way: Not at all Total score: 0 If you checked off any problems, how difficult have these problems made it for you to do your work, take care of things at home, or get along with other people?: not difficult at all Source: Developed by Drs. Duy Norton, Namita Maciel, Ashok Walker and colleagues, with an educational gabrielle from [employer]. Depression screen completed yes Social History Living Situation History Marital Status: Lives With: Family Housing: House Tobacco History Smoking Status: Never smoker Alcohol History Alcohol Intake: Never Domestic Abuse History Do You Feel Safe at Home: Yes Past Medical History Past Medical History Have you ever been diagnosed with any of the following: Cardiology Problems Congestive Heart Failure: No Respiratory Problems Chronic Obstructive Pulmonary Disease (COPD): No Genital/Urinary Problems Renal Disease: No Endocrine Problems Diabetes Mellitus Type 1: No Diabetes Mellitus Type 2: Yes History of Present Illness HPI Narrative 33-year-old 3 para 1 for OBI. Last period was April 07, 2024. However patient was seen in the ER with spotting July 16. Patient was 6 weeks on that day. EDC 03/13/2025 based on 6-week ultrasound on 16 July patient has a history of chronic hypertension. And she is taking lisinopril with good compliance. She also reports that she is type II diabetic. She takes NovoLog and metformin. Patient reports checking her sugars and they are all over the place. She also has been taking Ozempic until 2 weeks ago for weight loss. And a history of irregular menses. Her last Pap was 2019. Patient denies social habits. She is a previous section x 1. No bleeding or complaints of miscarriage at this time. Patient denies any discomforts early . Denies any bleeding or SAB complaints OB Initial Visit OB Flowsheet OB Flowsheet Initial Weight: Not Recorded Date -?-?-?-?-?-?-?-?-?-?-?-?- EGA Weight Edema CTX Effacement BP Fundal ht Pres Dilation Effacement Station Visit Note Alb Glu FHR Mov 07/19/24 -?-?-?-?-?-?-?-?-?-?-?-?- 6w 3d absent absent 33-year-ol d 2 para 1 for OBI. Previous C- section x 1. Patient is type II diabetic. She takes metformin thousand and NovoLog 38 units and then she also takes Levemir 32 units. Patient stopped taking her Ozempic 2 weeks ago. She has a history of irregular menses. Patient had a 6-week ultrasound July 16, 2024 and this dated her March 13, 2025. History of chronic hypertension. Patient takes lisinopril 2.5 daily. She denies any SAB complaints at this time. Denies any nausea and vomiting. The patient is taking vitamins. So I discussed SAB precautions with patient. Consulted with OB regarding medication for chronic hypertension. Patient will be changed to labetalol 200 mg twice daily and that was ordered to pharmacy. I also ordered prenatals. Discussed diet and glucometer testing. SAB precautions reviewed with patient. OB panel with CMP hCG and TSH ordered. And I scheduled patient for MFM referral due to the diabetes and hypertension advanced maternal age. 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 Thalassemia (Yi, Welsh, Mediterranean, or Background); MCV less than 80: Yes 3. Neural Tube Defect (Meningomyelocele, Spina Bifida, or Anencephaly): No 4. Congenital Heart Defect: No 5. Down Syndrome: No 6. Yariel-Sachs (Ashkenazi Latter Day, Cajun, Hungarian [place]): No 7. Shai Disease (Ashkenazi Latter Day): No 8. Familial Dysautonomia (Ashkenazi Latter Day): No 9. Sickle Cell Disease or Trait (): No 10. Hemophilia or other blood disorders: No 11. Muscular Dystrophy: No 12. Cystic Fibrosis: No 13. [place]'s Chorea: No 14. Mental Retardation/Autism: Yes (HER DAUGHTER ) 15. Other inherited genetic or chromosomal disorder: No 16. Maternal Metabolic Disorder (EG,TYPE 1 Diabetes, PKU): Yes 17. Patient or baby's father had a child with defects not listed above: No 18. Recurrent loss or a stillbirth: No 19. Medications (including supplements, vitamins, herbs or otc drugs)/illicit/recreational drugs/alcohol since last menstrual period: No 20. Any other: No Comments/Counseling: MOTHER HAS DIABTES TYPE 2 Infection History 1. Live with someone with TB or exposed to TB: No 2. Rash or viral illness since last menstrual period: No 3. Hepatitis B,C: No Other (see comments) Source: [employer] Review of Systems Review of Systems Systems Reviewed: All systems reviewed, normal except as documented Exam General Limitations: no limitations General Appearance: alert, in no apparent distress, comfortable, cooperative, healthy appearing, well developed and well groomed ENT ENT exam: Present normal exam, normal oropharynx and mucous membranes moist Neck Neck exam: Present normal inspection, full ROM and trachea midline Resp Respiratory exam: Present normal lung sounds bilaterally Card Cardiovascular exam: Present regular rate, normal rhythm and normal heart sounds Abdominal Abdominal exam: Present soft and normal bowel sounds Psych Psychiatric exam: Present normal affect and normal mood Assessment & Plan Diagnosis / Problem List (1) Encounter for supervision of high risk in first trimester, antepartum: Status: Acute (2) Advanced maternal age (AMA) in : Status: Acute (3) Diabetes 1.5, managed as type 2: Status: Acute (4) Chronic hypertension affecting : Status: Acute (5) Previous section: Status: Acute Plan I ordered vitamins. 1 daily. Labetalol 200 twice daily I gave patient 60 with refills. And patient is to replace the lisinopril with the labetalol. Schedule maternal- medicine appointment with Dr. Barros in [place]. Discussed SAB precautions. I discussed compliance with monitoring sugars. And diet. Increase exercise. Increase fluids. Return in 4 weeks with OB Additional Plan Follow Up: 4 Weeks (obc) Office Procedures OB Clinic LOC & Office Proc's Nursing/Assessment Patient Status: Established Patient OB Clinic Nursing Assessment: BP Monitoring, Medication Reconciliation, Update PMH in EMR and Vital Signs OB Clinic Coordination of Care: Consent,records obtained, informed consent, Lab and Imaging orders, Ref for ancillary service and Staff clarify orders Established Patient Charge Established Patient Point Assignment: 105 Established Patient Point Charge: EP Level 3 (80-115)
== END 2024-07-19 10:44 | disposition home or self-care (01) ==
LOC: HODSOBC 09:42
PROVIDERS: Supervising Provider Advanced Practice Midwife; Visit Provider Advanced Practice Midwife
DX: O09.521 Supervision of elderly multigravida, first trimester (principal); Z3A.01 Less than 8 weeks gestation of pregnancy; O10.911 Unspecified pre-existing hypertension complicating pregnancy, first trimester; O24.111 Pre-existing type 2 diabetes mellitus, in pregnancy, first trimester; O34.219 Maternal care for unspecified type scar from previous cesarean delivery; Z79.4 Long term (current) use of insulin; Z79.84 Long term (current) use of oral hypoglycemic drugs; Z79.899 Other long term (current) drug therapy
CPT/HCPCS: 81001; 99213; G0463

== ENCOUNTER 2024-07-23 21:59 | Emergency (ER) | payer MEDICAID, SELFPAY ==
[2024-07-23 22:00] VITALS: BMI 34.7
[2024-07-23 22:50] VITALS: BP 124/78; PULSE 92; RESP 16; TEMP 37.1; O2SAT 99
--- NOTE | 2024-07-23 23:10 | PD.EDADULT ---
ED General RME/HPI General Chief complaint: General Adult/Misc Complain Stated complaint: STARTED NEW BP MED, TINGLY ALL OVER BODY Time Seen by Provider: 07/23/24 23:10 Arrival date/time: 07/23/24 21:59 33-year-old female presents to the ED with complaint of tingling and itching all over her body. The symptoms began about 9 PM. She was seen by her doctor today and prescribed labetalol 200 mg twice daily for blood pressure. She took the medication and shortly thereafter started experiencing these symptoms. She is currently 7 weeks . She denies any shortness of breath, tongue swelling or difficulty swallowing. Related Data Home Medications ?Medication ?Instructions ?Recorded ?Confirmed insulin aspart U-100 100 unit/mL 15 unit subcut TID 07/19/24 07/19/24 (3 mL) subcutaneous pen (Novolog FlexPen U-100 Insulin aspart) insulin detemir U-100 100 unit/mL unit subcut 07/19/24 07/19/24 (3 mL) subcutaneous pen Previous Rx's ?Medication ?Instructions ?Recorded ondansetron 4 mg disintegrating 4 mg PO Q8H PRN nausea and 12/30/23 tablet vomiting #30 tabs ibuprofen 600 mg tablet 600 mg PO Q8H PRN fever or pain 05/23/24 #20 tabs ondansetron 4 mg disintegrating 4 mg PO Q8H PRN nausea and 05/23/24 tablet vomiting #14 tabs labetalol 200 mg tablet 200 mg PO BID 30 days #60 tabs 07/19/24 vits no.126-ferrous fum 0.126 - 28 tab PO DAILY 30 days 07/19/24 28 mg iron-folic acid 800 mcg #60 tabs tablet (Classic ) Allergies Allergy/AdvReac Type Severity Reaction Status Date / Time No Known Allergies Allergy Verified 07/19/24 09:54 Review of Systems Review of Systems Systems Reviewed: All systems reviewed, normal except as documented ED Exam Narrative Physical exam: 33-year-old female, no acute distress. Course Vital Signs Vital signs: Vital Signs Temperature 98.7 F 07/23/24 22:50 Pulse Rate 92 07/23/24 22:50 Respiratory Rate 16 07/23/24 22:50 Blood Pressure 124/78 07/23/24 22:50 Pulse Oximetry (%) 99 07/23/24 22:50 Oxygen Delivery Method Room Air 07/23/24 22:50 Discharge Plan Prescriptions/Referrals Prescriptions/Med Rec: No Action insulin aspart U-100 [Novolog FlexPen U-100 Insulin] 100 unit/mL (3 mL) insulin pen 15 unit subcut TID insulin detemir U-100 100 unit/mL (3 mL) insulin pen subcut Classic 28 mg iron- 800 mcg tablet 0.126 - 28 tab PO DAILY 30 Days Qty: 60 2RF labetalol 200 mg tablet 200 mg PO BID 30 Days Qty: 60 4RF ibuprofen 600 mg tablet 600 mg PO Q8H PRN (Reason: fever or pain) Qty: 20 0RF ondansetron 4 mg tablet,disintegrating 4 mg PO Q8H PRN (Reason: nausea and vomiting) Qty: 14 0RF ondansetron 4 mg tablet,disintegrating 4 mg PO Q8H PRN (Reason: nausea and vomiting) Qty: 30 0RF Patient/Caregiver Discharge Instructions Print Language: Nauruan
[2024-07-23] MEDS: lorataDINE 10 MG TABLET PO (23:28)
[2024-07-23] MEDS: FAMOTIDINE 20 MG TABLET PO (23:28)
--- NOTE | 2024-07-24 01:50 | PC.NURSE ---
PT CALLED BACK FROM [facility] NO ANSWER
--- NOTE | 2024-07-24 02:04 | PC.NURSE ---
PT CALLED FROM [facility] NO ANSWER
--- NOTE | 2024-07-24 02:27 | PC.NURSE ---
PT WAS CALLED THREE TIMES NO ANSWER. PT MUST OF ELOPED THE ER.
== END 2024-07-24 05:14 | disposition left against medical advice (07) ==
LOC: SERX 23:54
PROVIDERS: Emergency Provider Emergency Medicine
DX: O26.891 Other specified pregnancy related conditions, first trimester (principal); R20.2 Paresthesia of skin; L29.9 Pruritus, unspecified; Z3A.01 Less than 8 weeks gestation of pregnancy; Z53.29 Procedure and treatment not carried out because of patient's decision for other reasons
CPT/HCPCS: 99281; A9270

== ENCOUNTER 2024-08-15 12:21 | Emergency (ER) | payer MEDICAID, SELFPAY ==
[2024-08-15 13:07] VITALS: BP 130/87; PULSE 93; RESP 16; TEMP 36.7; O2SAT 99; BMI 35.8
--- NOTE | 2024-08-15 13:09 | XR_ITS ---
Examination: Complete OB ultrasound, less than 14 weeks, transabdominal Date and time of exam: August 15, 2024 1340 hours INDICATIONS: Pelvic pressure and pain beginning 2 days ago Technique: Obstetrical ultrasound images less than 14 weeks performed via transabdominal imaging Findings: A normal shaped single intrauterine gestation is present in the uterus. pole 3.8 cm corresponds to 10 weeks 5 day gestational age Cardiac motion 178 BPM Ultrasonographic survey of visible and placental structures unremarkable. Amniotic fluid volume appears appropriate for this estimated gestational age. Right ovary 5.0 cm arterial flow 26 mm cyst with internal echoes Left ovary 2.9 cm arterial flow IMPRESSION: Viable intrauterine gestation 10 weeks 5 days.
--- NOTE | 2024-08-15 13:10 | PD.EDRME ---
Rapid Medical Screening Exam RME Arrival date/time: 08/15/24 12:21 33-year-old female presents to Emergency Department today for complaint of pelvic pain and elevated blood sugar patient worsening approximately 10 weeks Chief Complaint: General Adult/Misc Complain Time Seen by Provider: 08/15/24 12:41 Vital signs: Vital Signs Temperature 98.0 F 08/15/24 13:07 Pulse Rate 93 08/15/24 13:07 Respiratory Rate 16 08/15/24 13:07 Blood Pressure 130/87 H 08/15/24 13:07 Pulse Oximetry (%) 99 08/15/24 13:07 Oxygen Delivery Method Room Air 08/15/24 13:07
[2024-08-15 13:27] LABS: Basophils % (Auto) 0 % (0-2.5); Eosinophils # (Auto) 0.2 Thou/mm3 (0.0-0.5); Eosinophils % (Auto) 3 % (0-10); Hematocrit 35.7 % (36.0-46.0); Hemoglobin 12.8 g/dL (12.0-16.0); Immature Granulocytes % (Auto) 1 % (0-0); Immature Granulocytes Auto 0.04 Thou/mm3 (0.00-0.00); Lymphocytes # (Auto) 2.3 Thou/mm3 (1.0-4.8); Lymphocytes % (Auto) 28 % (10-50); Mean Corpuscular HGB Conc 35.9 g/dl (31.0-37.0); Mean Corpuscular Hemoglobin 29.2 pg (25.0-35.0); Mean Corpuscular Volume 81 fL (80-100); Monocytes # (Auto) 0.6 Thou/mm3 (0.0-0.8); Monocytes % (Auto) 7 % (0-12); Neutrophils # (Auto) 4.9 Thou/mm3 (1.8-7.7); Neutrophils % (Auto) 61 % (37-80); Nucleated Red Blood Cell % 0 /100 WBC (0); Platelet Count 237 Thou/mm3 (140-440); RDW Standard Deviation 38.9 fL (36.4-46.3); Red Blood Count 4.39 Miln/mm3 (4.00-5.20); White Blood Count 8.1 Thou/mm3 (3.6-11.0)
[2024-08-15 13:49] LABS: Glucose Estimated Average 189 mg/dL (80-131); Hemoglobin A1C 8.2 % Hgb (4.8-6.0)
[2024-08-15 13:51] LABS: Alanine Aminotransferase 18 U/L (10-49); Albumin, Serum 4.4 gm/dL (3.5-5.0); Albumin/Globulin Ratio 1.8 (1.2-2.2); Alkaline Phosphatase 57 U/L (46-116); Anion Gap 15 (7-16); Aspartate Amino Transferase 17 U/L (0-34); BUN/Creatinine Ratio 9 Ratio (12-20); Bilirubin,Total 0.3 mg/dL (0.3-1.2); Blood Urea Nitrogen 6 mg/dL (9-23); Calcium 9.7 mg/dL (8.3-10.6); Calcium (Corrected) 9.7 mg/dL (8.5-10.1); Carbon Dioxide 20.3 mMol/L (20.0-31.0); Chloride 103 mMol/L (98-107); Creatinine (Component) 0.7 mg/dL (0.6-1.3); Estimated Creatinine Clearance 134.3 mL/min (>60); Globulin 2.5 gm/dL (2.3-3.5); Glucose 192 mg/dL (74-106); Lipase 41 U/L (12-53); Osmolality,Calculated 278 (275-295); Potassium 4.2 mMol/L (3.4-5.1); Sodium 138 mMol/L (136-145); Total Protein 6.9 gm/dL (5.7-8.2); eGFR > 60 See Note
[2024-08-15 14:08] LABS: Collection Type, Urine Clean Catch
[2024-08-15 14:30] LABS: Beta HCG,Quantitative 11358 mIU/mL (<5.0)
[2024-08-15 14:35] LABS: Bilirubin,Urine Negative (Negative); Blood,Urine Negative (Negative); Clarity,Urine Clear (Clear/Hazy); Color,Urine Lt-Yellow (Lt Yel-Yel); Glucose, Urine 4+ (Negative); Ketones,Urine 1+ (Negative); Leukocyte Esterase,Urine Negative (Negative); Nitrite,Urine Negative (Negative); PH,Urine 5.5 (5.0-7.0); Protein,Urine 1+ (Neg - Trace); RBC,Urine 2 /hpf (0-3); Specific Gravity,Urine 1.031 (1.001-1.035); Squamous Epithelial Cell,Urine < 1 /hpf (0-5); Urobilinogen,Urine Negative mg/dL (0.0-1.0); WBC,Urine 2 /hpf (0-5)
--- NOTE | 2024-08-15 15:17 | PD.EDPREG ---
ED OB Contraction Preg RMI/HPI General Chief complaint: General Adult/Misc Complain Stated complaint: 10 weeks , ab pain, pressure Time Seen by Provider: 08/15/24 12:41 Arrival date/time: 08/15/24 12:21 RME / HPI RME / HPI Narrative: 08/15/24 12:21 33-year-old female presents to Emergency Department today for complaint of pelvic pain and elevated blood sugar patient worsening approximately [address] ALEXANDER MAIN ED EVALUATION: 33 year old female who is currently 10 weeks gestational age A1 and insulin-dependant type II diabetes presents to the ED for evaluation of pelvis pressure beginning last night. Denies vaginal bleeding or discharge. No other associated symptoms or complaints reported. Patient mentioned she had been out of her insulin for 2 weeks and just received approval from her insurance and is to resume today or tomorrow. Related Data Home Medications ?Medication ?Instructions ?Recorded ?Confirmed insulin aspart U-100 100 unit/mL 15 unit subcut TID 07/19/24 07/19/24 (3 mL) subcutaneous pen (Novolog FlexPen U-100 Insulin aspart) insulin detemir U-100 100 unit/mL unit subcut 07/19/24 07/19/24 (3 mL) subcutaneous pen Previous Rx's ?Medication ?Instructions ?Recorded ondansetron 4 mg disintegrating 4 mg PO Q8H PRN nausea and 12/30/23 tablet vomiting #30 tabs ibuprofen 600 mg tablet 600 mg PO Q8H PRN fever or pain 05/23/24 #20 tabs ondansetron 4 mg disintegrating 4 mg PO Q8H PRN nausea and 05/23/24 tablet vomiting #14 tabs labetalol 200 mg tablet 200 mg PO BID 30 days #60 tabs 07/19/24 vits no.126-ferrous fum 0.126 - 28 tab PO DAILY 30 days 07/19/24 28 mg iron-folic acid 800 mcg #60 tabs tablet (Classic ) nifedipine 30 mg tablet,extended 30 mg PO QDAY #30 tabs 07/25/24 release 24 hr (Procardia XL) Allergies Allergy/AdvReac Type Severity Reaction Status Date / Time No Known Allergies Allergy Verified 08/15/24 12:24 Review of Systems Review of Systems Systems Reviewed: All systems reviewed, normal except as documented Past Medical History Past Medical History CARDIAC: Negative Congestive Heart Failure RESPIRATORY: Negative Chronic Obstructive Pulmonary Disease (COPD) GENITOURINARY: Negative Renal Disease ENDOCRINE: Positive Diabetes Mellitus Type 2; Negative Diabetes Mellitus Type 1 Surgical History SURGICAL: Positive Section Social History SMOKING STATUS: Never smoker ED Exam Narrative Physical exam: GENERAL APPEARANCE: AxOx4, no obvious distress, nontoxic appearing HEENT: NC, AT. MMM. EOMI, clear conjunctiva, oropharynx clear. NECK: Supple without lymphadenopathy. No stiffness or restricted ROM. HEART: Normal rate and regular rhythm, normal S1/S1, no m/r/g LUNGS: CTAB, moving air well. No crackles or wheezes are heard. ABDOMEN: Soft, nontender, nondistended with good bowel sounds heard. BACK: No midline C/T/L spine pain or deformity, No CVAT, no obvious deformity. EXTREMITIES: Without cyanosis, clubbing or edema. MUSCULOSKELETAL: FROM of all major joints, no chest tenderness NEUROLOGICAL: Grossly nonfocal. Alert and oriented, moving all 4 extremities. CN not formally tested but appear grossly intact. Skin: Warm and dry without any rash. Course Quality Measures none Orders Category Date Time Status Bedside Blood Glucose NOW Care 08/15/24 13:09 Completed US OB <= 14 weeks fetus Stat Exams 08/15/24 13:09 Completed A1C [Glycohemoglobin w (eAG)] Stat Lab 08/15/24 13:14 Completed ABO/RH Type Stat Lab 08/15/24 13:14 Completed Beta HCG,Quantitative Stat Lab 08/15/24 13:14 Completed CBC Stat Lab 08/15/24 13:14 Completed Comprehensive Metabolic Panel Stat Lab 08/15/24 13:14 Completed Lipase Stat Lab 08/15/24 13:14 Completed UA [Urinalysis] Stat Lab 08/15/24 13:55 Completed Urine Culture Stat Lab 08/15/24 13:55 Received Vital Signs Vital signs: Vital Signs Temperature 98.0 F 08/15/24 13:07 Pulse Rate 93 08/15/24 13:07 Respiratory Rate 16 08/15/24 13:07 Blood Pressure 130/87 H 08/15/24 13:07 Pulse Oximetry (%) 99 08/15/24 13:07 Oxygen Delivery Method Room Air 08/15/24 13:07 Pulse ox is 99% on room air which is adequate. OB/Uterine Contractions MDM Narrative MDM Narrative:: Anca Morales, am scribing for and in the presence of Dr. Alexander. Patient data External records reviewed:: [facility] previous records Clinical information provided by:: patient Social determinants that could affect healthcare access:: none Patient has the following chronic illnesses:: TIIDM, A1 How is presenting disease/condition affected by chronic disease/condition?: uneffected by Evaluation data The following diagnostics were reviewed and interpreted by me:: lab results and radiology exam(s) Lab and/or radiology exams considered but not ordered:: None Interpretation Summary: Ordering Physician: Sahil JARA)Sridhar NP Date of Service: 08/15/24 Procedure(s): US OB <= 14 weeks fetus Accession Number(s): [id number] cc: Sahil JARA),Sridhar DEXTER; Solo Sun MD~ Examination: Complete OB ultrasound, less than 14 weeks, transabdominal Date and time of exam: August 15, 2024 1340 hours INDICATIONS: Pelvic pressure and pain beginning 2 days ago Technique: Obstetrical ultrasound images less than 14 weeks performed via transabdominal imaging Findings: A normal shaped single intrauterine gestation is present in the uterus. pole 3.8 cm corresponds to 10 weeks 5 day gestational age Cardiac motion 178 BPM Ultrasonographic survey of visible and placental structures unremarkable. Amniotic fluid volume appears appropriate for this estimated gestational age. Right ovary 5.0 cm arterial flow 26 mm cyst with internal echoes Left ovary 2.9 cm arterial flow IMPRESSION: Viable intrauterine gestation 10 weeks 5 days. Dictated By: Solo Sun MD Signed By: <Electronically signed by Solo Sun MD in [place]> 08/15/24 1405 Medications / Prescriptions Medications or Prescriptions considered but not ordered:: None Medication administrations:: None Consultations Consultation(s) initiated? (list below): No Diagnosis OB Contractions Differential Diagnosis: other (Threatened , abdominal pain, hyperglycemia ) Most likely diagnosis given after review of the tests above:: Diabetes Admission Indicated Admission indicated?: not indicated Explain why admission is indicated or not indicated:: Does not meet admission criteria Admission Request Was there a request for admission?: No Disposition Plan Disposition Plan: Discharge Discharge Attestation Discharge Attestation: The patient and all family members were given an opportunity to ask questions and understood the discharge instructions. Discharge instructions specifically effects, indications for sooner follow up or return to the emergency department, and the expected course of current diagnosis. Patient condition: Stable Discharge Plan Plan Patient Disposition: HOME (Self Care) Prescriptions/Referrals Prescriptions/Med Rec: No Action insulin aspart U-100 [Novolog FlexPen U-100 Insulin] 100 unit/mL (3 mL) insulin pen 15 unit subcut TID insulin detemir U-100 100 unit/mL (3 mL) insulin pen subcut Classic 28 mg iron- 800 mcg tablet 0.126 - 28 tab PO DAILY 30 Days Qty: 60 2RF labetalol 200 mg tablet 200 mg PO BID 30 Days Qty: 60 4RF nifedipine [Procardia XL] 30 mg tablet extended release 24hr 30 mg PO QDAY Qty: 30 2RF ibuprofen 600 mg tablet 600 mg PO Q8H PRN (Reason: fever or pain) Qty: 20 0RF ondansetron 4 mg tablet,disintegrating 4 mg PO Q8H PRN (Reason: nausea and vomiting) Qty: 14 0RF ondansetron 4 mg tablet,disintegrating 4 mg PO Q8H PRN (Reason: nausea and vomiting) Qty: 30 0RF Referrals: Mao Sierra FNP [Primary Care Provider] - In 1 week Problem List Clinical Impression: Diabetes 1.5, managed as type 2, Patient/Caregiver Discharge Instructions Education Materials: First Trimester, Preg Blood Sugar Monitor Additional Instructions: Follow-up with your primary care doctor/RELIGIOUS EDUCATION COORDINATOR in 2 to 3 days for recheck. You can return to the emergency department sooner if symptoms worsen or if you notice any new, concerning issues. Print Language: Serbian Stand Alone Forms: Gisselle Award Info., Patient Portal Info Letter
== END 2024-08-15 15:47 | disposition home or self-care (01) ==
PROVIDERS: Nurse Practitioner Primary Care; Emergency Provider Emergency Medicine; PCP Nurse Practitioner Family
DX: O24.111 Pre-existing type 2 diabetes mellitus, in pregnancy, first trimester (principal); Z3A.10 10 weeks gestation of pregnancy; O34.81 Maternal care for other abnormalities of pelvic organs, first trimester; N83.201 Unspecified ovarian cyst, right side
CPT/HCPCS: 36415; 76801; 80053; 81001; 83036; 83690; 84702; 85025; 86900; 86901; 87077; 87086; 99284

== ENCOUNTER 2024-08-16 14:15 | Outpatient (AMB) | payer MEDICAID, SELFPAY ==
--- NOTE | 2024-08-16 14:31 | AMB.OBVISIT ---
Vital Signs 08/16/24 14:32 Height 1.68 m Height Method Stated Weight 100.754 kg Weight Measurement Method Standing Scale BMI 35.6 BP 134/88 H Blood Pressure Source Automatic Cuff Blood Pressure Location Left Upper Arm Position Sitting Respiration 18 Pulse 100 Pulse Source Monitor Temp 97.2 F Temp Source Oral Pulse Oximetry (%) 98 Oxygen Delivery Method Room Air Allergies/Home Meds Allergies & Medications Allergies No Known Allergies Allergy (Verified 08/23/24 14:49) Medication Reconciliation vits no.126-ferrous fum 28 mg iron-folic acid 800 mcg tablet (Classic ) 0.126 - 28 tab PO DAILY 30 days #60 tabs 07/19/24 [Rx Confirmed 08/23/24] insulin aspart U-100 100 unit/mL (3 mL) subcutaneous pen (Novolog FlexPen U-100 Insulin aspart) 15 unit (0.15 mL) subcut TID 30 days #15 mL 08/16/24 [Rx Confirmed 08/23/24] insulin glargine 100 unit/mL (3 mL) subcutaneous pen (Basaglar KwikPen U-100 Insulin) 40 unit (0.4 mL) subcut BID 30 days #24 mL 08/16/24 [Rx Confirmed 08/23/24] labetalol 200 mg tablet 200 mg PO BID 30 days #60 tabs 08/16/24 [Rx Confirmed 08/23/24] nifedipine 30 mg tablet,extended release 24 hr (Procardia XL) 30 mg PO QDAY #30 tabs 08/16/24 [Rx Confirmed 08/23/24] ondansetron 4 mg disintegrating tablet 4 mg PO Q8H PRN nausea and vomiting #14 tabs 08/16/24 [Rx Confirmed 08/23/24] Intake Visit Data Collection New Patient or Established: Established Patient (seen at [facility] within 3 years) Reason for Visit:: OBC / NEEDS REFILL ON INSULIN HAS BEEN OUT FOR THREE WEEKS Seen by Clinical Staff ONLY (RN/MA): No 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 1. Little interest or pleasure in doing things: not at all 2. Feeling down, depressed, or hopeless: not at all Total score: 0 PHQ-9 3. Trouble falling or staying asleep, or sleeping too much: Not at all 4. Feeling tired or having little energy: Not at all 5. Poor appetite or overeating: Not at all 6. Feeling bad about yourself - or that you are a failure or have let yourself or your family down: Not at all 7. Trouble concentrating on things, such as reading the newspaper or watching television: Not at all 8. Moving or speaking so slowly that other people could have noticed? - Or the opposite - being so fidgety or restless that you have been moving around a lot more than usual: not at all 9. Thoughts that you would be better off or of hurting yourself in some way: Not at all Total score: 0 If you checked off any problems, how difficult have these problems made it for you to do your work, take care of things at home, or get along with other people?: not difficult at all Source: Developed by Drs. Duy Norton, Namita Maciel, Ashok Walker and colleagues, with an educational gabrielle from [employer]. 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 LMP: Not provided. TAPAN based on U/S: March 13, 2025. Currently estimated at 10 weeks 5 days gestation. OB History: - Prior pregnancies: 2 previous pregnancies - Prior C-sections, miscarriages, ectopics, or terminations: No information provided Medical History: - Chronic conditions (e.g., DM, HTN, thyroid disease): Type-2 diabetes, chronic hypertension - Surgical history: No information provided - Medications: Metformin, NovoLog 38 units, Levemir 32 units (changed to Basaglar 32 units in morning, 42 units at night), labetalol 200 mg twice daily - Allergies: No information provided - Psychosocial: Tobacco No information provided, Alcohol No information provided, Illicit drugs No information provided - IPV screening: No information provided, Depression screening: No information provided Family History: - Genetic or congenital disorders: No information provided - Chronic diseases in family: No information provided Laboratory, Imaging, and Diagnostic Test Results - Ultrasound (07/16/2024): - Gestational age: 6 weeks - Due date: March 13, 2025 - Ultrasound (08/15/2024): - Normal intrauterine gestation - pole corresponding to 10 weeks and 5 days - Cardiac motion: 178 bpm - Right ovary: 26-mm cyst Care OB Visit Log OB Flowsheet Initial Weight: Not Recorded Date <del>?</del> EGA Weight BP Alb Glu CTX Pres Fundal ht FHR Mov Dilation Station Effacement Hx Notes Visit Note 07/19/24 <del>?</del> 6w 3d absent 33-year-old 2 para 1 for OBI. Previous x 1. Patient is type II diabetic. She takes metformin thousand and NovoLog 38 units and then she also takes Levemir 32 units. Patient stopped taking her Ozempic 2 weeks ago. She has a history of irregular menses. Patient had a 6-week ultrasound July 16, 2024 and this dated her March 13, 2025. History of chronic hypertension. Patient takes lisinopril 2.5 daily. She denies any SAB complaints at this time. Denies any nausea and vomiting. The patient is taking vitamins. So I discussed SAB precautions with patient. Consulted with OB regarding medication for chronic hypertension. Patient will be changed to labetalol 200 mg twice daily and that was ordered to pharmacy. I also ordered prenatals. Discussed diet and glucometer testing. SAB precautions reviewed with patient. OB panel with CMP hCG and TSH ordered. And I scheduled patient for MFM referral due to the diabetes and hypertension advanced maternal age. SAB precautions reviewed and patient return in 4 weeks with OB 08/16/24 <del>?</del> 10w 3d 100.754 kg 134/88 30yo @12w5d, severe hyperemesis (recent 5-day admission), low K+, chronic HTN on labetalol/Procardia, bipolar disorder on lamotrigine, insomnia. Plan: continue meds (Phenergan, Zofran, Reglan, Protonix, prednisone), refill prescriptions, labs for genetic testing, welfare note, check FHR by sono when room available. @10w5d, T2DM on Basaglar/NovoLog, chronic HTN on labetalol. Plan: initial labs incl. NIPT, SMA, CF; vitamins; MFM/nutrition referral if indicated; routine care. 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 Reports nausea, no CTX/LOF/VB, denies SHARMA/VC/RUQ pain. Active lifestyle but difficulty with dietary adherence noted. FHR visualized with motion, bpm not recorded. Labs: UPCR 563, glucose post-meal 219, genetic labs pending from 01/17. Insulin: Basaglar 40u AM/8u PM, NovoLog 15u TID. Plan: Insulin adjusted to Basaglar 40u BID, NovoLog 20u TID (total daily dose 140u). Patient educated on diabetic diet; food list provided. Encouraged postprandial activity for glucose control. Continue labetalol. Monitor for preeclampsia; preeclampsia panel pending. Await genetic results and MFM referral. Follow up in 2 weeks. TAPAN Calculator Estimated Delivery Date Method Current WG Current Estimate 03/11/25 Ultrasound #2 12w 2d Other Estimates 01/12/25 LMP (Uncertain) 20w 4d Notes Visit Date: 07/19/24 Last Updated by: Jackelyn June CNM 33 yo . irregular menses, sono: 07/16/24: IUP viable, 6 week, EDC 03/13/25 Exam General General Appearance: alert, in no apparent distress and healthy appearing Head Head exam: atraumatic Neck Neck exam: Present normal inspection and trachea midline Chest Chest inspection: Present normal inspection and symmetric chest wall rise External exam: Present normal external exam; Absent tenderness Neuro Neurological exam: Present oriented X3 Psych Psychiatric exam: Present normal affect and normal mood Office Procedures OB Clinic LOC & Office Proc's Nursing/Assessment Patient Status: Established Patient OB Clinic Nursing Assessment: Medication Reconciliation, Update PMH in EMR and Vital Signs OB Clinic Coordination of Care: Education Complex Pt/Fam, Consent,records obtained, informed consent, Lab and Imaging orders, Results/Orders obtained and Staff clarify orders Special Needs: Heart tones Established Patient Charge Established Patient Point Assignment: 115 Established Patient Point Charge: EP Level 3 (80-115) Assessment & Plan Diagnosis / Problem List (1) Diabetes 1.5, managed as type 2: Status: Acute (2) Encounter for supervision of high risk in first trimester, antepartum: Status: Acute Plan Labs Ordered Today: - Initial panel - Blood type & antibody screen - CBC, RPR, HIV, HBsAg, Rubella IgG - GC/CT, UA & culture, Varicella IgG, - NIPT, SMA and CF Screen Plan: - Routine care initiated - vitamins started - Ultrasound ordered to confirm dating - Genetic screening options reviewed and patient accepts - Referral to MFM or nutrition if indicated Educated the patient on the importance of care, including taking vitamins with folic acid, iron, and calcium. Emphasized avoiding alcohol, smoking, and certain medications. Discussed common symptoms like nausea and fatigue, advising small, frequent meals and adequate hydration. Explained the need for regular check-ups and recommended safe physical activities. Instructed on signs of complications, such as severe cramping or bleeding, and when to seek immediate medical attention. Highlighted the importance of a balanced diet and avoiding high-risk foods. Encouraged open communication about any concerns or questions. Encouraged keeping up with all appointments and tests.
[2024-08-16 14:32] VITALS: BP 134/88; PULSE 100; RESP 18; TEMP 36.2; O2SAT 98; BMI 35.6
== END 2024-08-16 14:58 | disposition home or self-care (01) ==
LOC: HODSOBC 14:15
PROVIDERS: PCP Family Medicine; Referring Provider Family Medicine; Supervising Provider Obstetrics & Gynecology; Visit Provider Obstetrics & Gynecology
DX: O09.521 Supervision of elderly multigravida, first trimester (principal); O34.219 Maternal care for unspecified type scar from previous cesarean delivery; O09.291 Supervision of pregnancy with other poor reproductive or obstetric history, first trimester; O09.891 Supervision of other high risk pregnancies, first trimester; Z3A.10 10 weeks gestation of pregnancy; O21.1 Hyperemesis gravidarum with metabolic disturbance; O10.911 Unspecified pre-existing hypertension complicating pregnancy, first trimester; O24.111 Pre-existing type 2 diabetes mellitus, in pregnancy, first trimester; F31.9 Bipolar disorder, unspecified; O99.341 Other mental disorders complicating pregnancy, first trimester; G47.00 Insomnia, unspecified; Z79.4 Long term (current) use of insulin; Z79.899 Other long term (current) drug therapy
CPT/HCPCS: 99213; G0463

== ENCOUNTER 2024-08-23 14:19 | Outpatient (AMB) | payer MEDICAID, SELFPAY ==
[2024-08-23 14:36] VITALS: BP 127/84; PULSE 89; RESP 17; TEMP 36.5; O2SAT 97; BMI 36.5
--- NOTE | 2024-08-23 14:36 | OBCLNT_ITS ---
Vital Signs 08/23/24 14:36 Height 1.68 m Height Method Stated Weight 103.079 kg Weight Measurement Method Standing Scale BMI 36.5 BP 127/84 Blood Pressure Source Automatic Cuff Blood Pressure Location Right Upper Arm Position Sitting Respiration 17 Pulse 89 Pulse Source Monitor Temp 97.7 F Temp Source Temporal Artery Scan Pulse Oximetry (%) 97 Oxygen Delivery Method Room Air Allergies/Home Meds Allergies & Medications Allergies No Known Allergies Allergy (Verified 08/23/24 14:49) Medication Reconciliation vits no.126-ferrous fum 28 mg iron-folic acid 800 mcg tablet (Classic ) 0.126 - 28 tab PO DAILY 30 days #60 tabs 07/19/24 [Rx Confirmed 08/23/24] insulin aspart U-100 100 unit/mL (3 mL) subcutaneous pen (Novolog FlexPen U-100 Insulin aspart) 15 unit (0.15 mL) subcut TID 30 days #15 mL 08/16/24 [Rx Confirmed 08/23/24] insulin glargine 100 unit/mL (3 mL) subcutaneous pen (Basaglar KwikPen U-100 Insulin) 40 unit (0.4 mL) subcut BID 30 days #24 mL 08/16/24 [Rx Confirmed 08/23/24] labetalol 200 mg tablet 200 mg PO BID 30 days #60 tabs 08/16/24 [Rx Confirmed 08/23/24] nifedipine 30 mg tablet,extended release 24 hr (Procardia XL) 30 mg PO QDAY #30 tabs 08/16/24 [Rx Confirmed 08/23/24] ondansetron 4 mg disintegrating tablet 4 mg PO Q8H PRN nausea and vomiting #14 tabs 08/16/24 [Rx Confirmed 08/23/24] Intake Visit Data Collection New Patient or Established: Established Patient (seen at [facility] within 3 years) Reason for Visit:: OBC Seen by Clinical Staff ONLY (RN/MA): No 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 1. Little interest or pleasure in doing things: not at all 2. Feeling down, depressed, or hopeless: not at all Total score: 0 PHQ-9 3. Trouble falling or staying asleep, or sleeping too much: Not at all 4. Feeling tired or having little energy: Not at all 5. Poor appetite or overeating: Not at all 6. Feeling bad about yourself - or that you are a failure or have let yourself or your family down: Not at all 7. Trouble concentrating on things, such as reading the newspaper or watching television: Not at all 8. Moving or speaking so slowly that other people could have noticed? - Or the opposite - being so fidgety or restless that you have been moving around a lot more than usual: not at all 9. Thoughts that you would be better off or of hurting yourself in some way: Not at all Total score: 0 If you checked off any problems, how difficult have these problems made it for you to do your work, take care of things at home, or get along with other people?: not difficult at all Source: Developed by Drs. Duy Norton, Namita Maciel, Ashok Walker and colleagues, with an educational gabrielle from [employer]. 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 Patient reports nausea. Denies SHARMA, VC, and epigastric pain. - Gladis Costello is a 3 Para 1 patient at 11 weeks gestation presenting for an early visit with a history of type 2 diabetes mellitus and hypertension. - Patient reports challenges with blood sugar control: - Recent blood glucose reading of 219 mg/dL at 2 PM after eating a pancake around noon. - Currently on insulin regimen: 40 units of slow-acting insulin in the morning and 8 units at night, with 15 units before each meal. - History of hyperemesis gravidarum: - Previously admitted as inpatient and treated with Phenergan, Zofran, Reglan, Protonix, and prednisone. - Current status of nausea not explicitly stated. - Medication history: - On labetalol for chronic hypertension. - Was taking Ozempic at the time of conception. - Lifestyle factors: - Reports being always on the move due to involvement with two [facility] and recovery homes. - Acknowledges need to take time for purposeful exercise. - Adherence to treatment: - Insulin regimen adherence noted, but difficulty with dietary choices (e.g., eating pancakes) affecting blood sugar control. Urine protein-creatinine ratio: 563 (significantly elevated, normal <20) Care OB Visit Log OB Flowsheet Initial Weight: Not Recorded Date -?-?-?-?-?-?-?-?-?-?-?-?- EGA Weight BP Alb Glu CTX Pres Fundal ht FHR Mov Dilation Station Effacement Hx Notes Visit Note 07/19/24 -?-?-?-?-?-?-?-?-?-?-?-?- 6w 3d absent 33-year -old 2 para 1 for OBI. Previous C- section x 1. Patient is type II diabetic. She takes metformin thousand and NovoLog 38 units and then she also takes Levemir 32 units. Patient stopped taking her Ozempic 2 weeks ago. She has a history of irregular menses. Patient had a 6-week ultrasound July 16, 2024 and this dated her March 13, 2025. History of chronic hypertension. Patient takes lisinopril 2.5 daily. She denies any SAB complaints at this time. Denies any nausea and vomiting. The patient is taking vitamins. So I discussed SAB precautions with patient. Consulted with OB regarding medication for chronic hypertension. Patient will be changed to labetalol 200 mg twice daily and that was ordered to pharmacy. I also ordered prenatals. Discussed diet and glucometer testing. SAB precautions reviewed with patient. OB panel with CMP hCG and TSH ordered. And I scheduled patient for MFM referral due to the diabetes and hypertension advanced maternal age. SAB precautions reviewed and patient return in 4 weeks with OB 08/16/24 -?-?-?-?-?-?-?-?-?-?-?-?- 10w 3d 100.754 kg 134/88 30yo @12w5d, severe hyperemesis (recent 5-day admission), low K+, chronic HTN on labetalol/Procardia, bipolar disorder on lamotrigine, insomnia. Plan: continue meds (Phenergan, Zofran, Reglan, Protonix, prednisone), refill prescriptions, labs for genetic testing, welfare note, check FHR by sono when room available. @10w5d, T2DM on Basag lar/NovoLog, chronic HTN on labetalol. Plan: initial labs incl. NIPT, SMA, CF; vitamins; MFM/nutrition referral if indicated; routine care. 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 Reports nausea, no CTX/LOF/VB, denies SHARMA/VC/RUQ pain. Active lifestyle but difficulty with dietary adherence noted. FHR visualized with motion, bpm not recorded. Labs: UPCR 563, glucose post-meal 219, g enetic labs pending from 01/17. Insulin: Basaglar 40u AM/8u PM, NovoLog 15u TID. Plan: Insulin adjusted to Basaglar 40u BID, NovoLog 20u TID (total daily dose 140u). Patient educated on diabetic diet; food list provided. Encouraged postprandial activity for glucose control. Continue labetalol. Monitor for preeclampsia; preeclampsia panel pending. Await genetic results and MFM referral. Follow up in 2 weeks. TAPAN Calculator Estimated Delivery Date Method Current WG Current Estimate 03/11/25 Ultrasound #2 12w 2d Other Estimates 01/12/25 LMP (Uncertain) 20w 4d Notes Visit Date: 07/19/24 Last Updated by: Jackelyn June CNM 33 yo . irregular menses, sono: 07/16/24: IUP viable, 6 week, EDC 03/13/25 Exam General General Appearance: alert, in no apparent distress and healthy appearing Head Head exam: atraumatic Neck Neck exam: Present normal inspection and trachea midline Chest Chest inspection: Present normal inspection and symmetric chest wall rise External exam: Present normal external exam; Absent tenderness Neuro Neurological exam: Present oriented X3 Psych Psychiatric exam: Present normal affect and normal mood Office Procedures OB Clinic LOC & Office Proc's Nursing/Assessment Patient Status: Established Patient OB Clinic Nursing Assessment: Medication Reconciliation, Update PMH in EMR and Vital Signs OB Clinic Coordination of Care: Complex Care and Chronic Disease 1-5, Co nsent,records obtained, informed consent, Education Simp Pt/Fam and Staff clarify orders Special Needs: Heart tones Established Patient Charge Established Patient Point Assignment: 115 Established Patient Point Charge: EP Level 3 (80-115) Assessment & Plan Diagnosis / Problem List (1) Previous section: Status: Acute (2) Chronic hypertension affecting : Status: Acute (3) Advanced maternal age (AMA) in : Status: Acute (4) Diabetes 1.5, managed as type 2: Status: Acute (5) Encounter for supervision of high risk in first trimester, antepartum: Status: Acute Plan Gladis Costello is a at 11 weeks gestation presenting for an early visit with a history of type 2 diabetes mellitus, hypertension, and hyperemesis gravidarum. Type 2 Diabetes Mellitus in Assessment: Patient has poorly controlled type 2 diabetes mellitus, currently managed with a combination of Basaglar and NovoLog. Recent blood glucose reading was 219 mg/dL at 2 PM, approximately 2 hours after consuming a pancake. Current insulin regimen includes 40 units of long-acting insulin in the morning and 8 units at night, with 15 units of rapid-acting insulin before each meal. The elevated urine protein-creatinine ratio of 563 (normal <20) is likely due to diabetic nephropathy. Plan: - Increase insulin dosage: - Maintain long-acting insulin at 40 units in the morning and 40 units at night - Increase rapid-acting insulin to 20 units before each meal - Total daily insulin dose will be 140 units - Provide patient education on appropriate diet for gestational diabetes - Print list of recommended foods and foods to avoid - Encourage post-meal exercise (e.g., 5-10 minutes of walking or stationary cycling) to improve glucose control - Continue glucose monitoring - Follow up in 2 weeks Chronic Hypertension in Assessment: Patient has a history of chronic hypertension, currently managed with labetalol. Recent urine protein-creatinine ratio of 563 raises concern for possible superimposed preeclampsia, although this could also be related to diabetic nephropathy. Plan: - Continue labetalol for chronic hypertension management - Monitor for signs and symptoms of preeclampsia - Await results of recently ordered preeclampsia panel and other lab tests Early Assessment: Patient is at 11 weeks gestation, . Ultrasound performed during the visit showed normal cardiac activity and movement. Plan: - Await results of genetic testing labs drawn on January 17 - Continue care and monitoring - Patient has a pending maternal medicine referral History of Hyperemesis Gravidarum Assessment: Patient has a history of hyperemesis gravidarum, previously treated with multiple antiemetic medications during an inpatient admission. Plan: - Monitor for recurrence of severe nausea and vomiting - No current antiemetic medications prescribed Heart Rate (FHR) and Dates/Viability Verified Review Labs: Confirm results and address any abnormalities with treatment or referrals. History & Symptoms: Ask about nausea, vomiting, bleeding, or cramping. Screen for mental health concerns. Physical Exam: Check weight, blood pressure, and heart rate (via Doppler). Education: Discuss nutrition, exercise, and avoiding harmful substances. Review safe medications and warning signs (e.g., severe pain, bleeding). Screening Tests: Offer genetic screening if not done. Discuss upcoming anatomy scan (18-20 weeks). Plan: Schedule next visit (typically 4 weeks later) and any needed tests. Keep it supportive, address concerns, and ensure clear follow-up instructions.
== END 2024-08-23 14:51 | disposition home or self-care (01) ==
LOC: HODSOBC 14:19
PROVIDERS: PCP Family Medicine; Referring Provider Family Medicine; Supervising Provider Obstetrics & Gynecology; Visit Provider Obstetrics & Gynecology
DX: O09.521 Supervision of elderly multigravida, first trimester (principal); Z3A.11 11 weeks gestation of pregnancy; O09.291 Supervision of pregnancy with other poor reproductive or obstetric history, first trimester; O09.891 Supervision of other high risk pregnancies, first trimester; O10.911 Unspecified pre-existing hypertension complicating pregnancy, first trimester; O24.111 Pre-existing type 2 diabetes mellitus, in pregnancy, first trimester; E11.65 Type 2 diabetes mellitus with hyperglycemia; Z79.4 Long term (current) use of insulin; Z79.899 Other long term (current) drug therapy
CPT/HCPCS: 99213; G0463

== ENCOUNTER 2024-09-08 07:55 | Emergency (ER) | payer MEDICAID, SELFPAY ==
[2024-09-08 07:56] VITALS: BMI 32.3
[2024-09-08 08:18] VITALS: BP 146/79; PULSE 92; RESP 16; TEMP 36.8; O2SAT 100; BMI 37.2
--- NOTE | 2024-09-08 08:28 | PD.EDRME ---
Rapid Medical Screening Exam RME Arrival date/time: 09/08/24 07:55 This is a 33-year-old female who is a 3 para 1. Patient had a miscarriage last year. Patient's last menstrual period was April 08. Patient states she is approximately 13 weeks and 5 days . Today patient complains of mild vaginal spotting. Patient had an ultrasound transvaginally done approximately 2 days ago. Patient does not know if it is related to that. Patient reports that she is a high risk because of her diabetes and her high blood pressure. Patient thinks that she is also having blood in her urine. Patient denies any abdominal pain but also does complain of lower back pain. I have greeted and performed a focused initial assessment of this patient. Initial appropriate labs ordered at this time. A comprehensive ED assessment and evaluation of the patient and analysis of all test and completion of medical decision making process will be conducted by additional ED provider. Chief Complaint: Urogenital-Female Time Seen by Provider: 09/08/24 08:00 Vital signs: Vital Signs Temperature 98.3 F 09/08/24 08:18 Pulse Rate 92 09/08/24 08:18 Respiratory Rate 16 09/08/24 08:18 Blood Pressure 146/79 H 09/08/24 08:18 Pulse Oximetry (%) 100 09/08/24 08:18 Oxygen Delivery Method Room Air 09/08/24 08:18
[2024-09-08 08:47] LABS: Collection Type, Urine Voided
[2024-09-08 08:56] LABS: Bilirubin,Urine Negative (Negative); Blood,Urine Negative (Negative); Clarity,Urine Clear (Clear/Hazy); Color,Urine Lt-Yellow (Lt Yel-Yel); Culture Indicated,Urine Not Indicated; Glucose, Urine 2+ (Negative); Ketones,Urine Negative (Negative); Leukocyte Esterase,Urine Negative (Negative); Nitrite,Urine Negative (Negative); Protein,Urine 1+ (Neg - Trace); RBC,Urine 1 /hpf (0-3); Specific Gravity,Urine 1.022 (1.001-1.035); Squamous Epithelial Cell,Urine 1 /hpf (0-5); Urobilinogen,Urine Negative mg/dL (0.0-1.0); WBC,Urine < 1 /hpf (0-5)
[2024-09-08 09:00] LABS: Basophils % (Auto) 0 % (0-2.5); Eosinophils # (Auto) 0.3 Thou/mm3 (0.0-0.5); Eosinophils % (Auto) 3 % (0-10); Hematocrit 35.1 % (36.0-46.0); Hemoglobin 12.2 g/dL (12.0-16.0); Immature Granulocytes % (Auto) 1 % (0-0); Immature Granulocytes Auto 0.07 Thou/mm3 (0.00-0.00); Lymphocytes # (Auto) 2.2 Thou/mm3 (1.0-4.8); Lymphocytes % (Auto) 26 % (10-50); Mean Corpuscular HGB Conc 34.8 g/dl (31.0-37.0); Mean Corpuscular Hemoglobin 29.5 pg (25.0-35.0); Mean Corpuscular Volume 85 fL (80-100); Monocytes # (Auto) 0.6 Thou/mm3 (0.0-0.8); Monocytes % (Auto) 7 % (0-12); Neutrophils # (Auto) 5.4 Thou/mm3 (1.8-7.7); Neutrophils % (Auto) 63 % (37-80); Nucleated Red Blood Cell % 0 /100 WBC (0); Platelet Count 222 Thou/mm3 (140-440); RDW Standard Deviation 42.6 fL (36.4-46.3); Red Blood Count 4.13 Miln/mm3 (4.00-5.20); White Blood Count 8.6 Thou/mm3 (3.6-11.0)
--- NOTE | 2024-09-08 09:03 | XR_ITS ---
Examination: Complete OB ultrasound, less than 14 weeks, transabdominal Date and time of exam: September 08, 2024, 0914 hrs. Indications: Vaginal bleeding today Technique: Obstetrical ultrasound images less than 14 weeks performed via transabdominal imaging Findings: A normal shaped single intrauterine gestation is present in the uterus. CRL 7.3 cm corresponds to 13 weeks 3 days gestational age Cardiac motion 147 BPM Ultrasonographic survey of visible and placental structures unremarkable. Amniotic fluid volume appears appropriate for this estimated gestational age. Right ovary 3.0 cm arterial flow Left ovary 3.2 cm arterial flow Impression: Viable intrauterine gestation 13 weeks 3 days.
[2024-09-08 09:46] LABS: Alanine Aminotransferase 13 U/L (10-49); Albumin, Serum 4.1 gm/dL (3.5-5.0); Albumin/Globulin Ratio 1.6 (1.2-2.2); Alkaline Phosphatase 46 U/L (46-116); Anion Gap 7 (7-16); Aspartate Amino Transferase 13 U/L (0-34); BUN/Creatinine Ratio 8 Ratio (12-20); Bilirubin,Total 0.3 mg/dL (0.3-1.2); Blood Urea Nitrogen < 5 mg/dL (9-23); Calcium 8.8 mg/dL (8.3-10.6); Calcium (Corrected) 8.8 mg/dL (8.5-10.1); Carbon Dioxide 22.4 mMol/L (20.0-31.0); Chloride 108 mMol/L (98-107); Creatinine (Component) 0.6 mg/dL (0.6-1.3); Globulin 2.6 gm/dL (2.3-3.5); Glucose 145 mg/dL (74-106); Osmolality,Calculated 274 (275-295); Potassium 4.3 mMol/L (3.4-5.1); Sodium 137 mMol/L (136-145); Total Protein 6.7 gm/dL (5.7-8.2); eGFR > 60 See Note
[2024-09-08 10:10] LABS: Beta HCG,Quantitative 10637 mIU/mL (<5.0)
--- NOTE | 2024-09-08 13:13 | PD.EDFMALE ---
ED Female Urogenital RME/HPI General Chief complaint: Urogenital-Female Stated complaint: VAG. BLEEDING SINCE LAST NIGHT, 13 WEEKS PREG Time Seen by Provider: 09/08/24 08:00 Arrival date/time: 09/08/24 07:55 RME / HPI RME / HPI Narrative: 33-year-old female who is a 3 para 1 1. Patient had a miscarriage last year. Patient's last menstrual period was April 08. Patient states she is approximately 13 weeks and 5 days . Today patient complains of mild vaginal spotting. Patient had an ultrasound transvaginally done approximately 2 days ago. Patient does not know if it is related to that. Patient reports that she is a high risk because of her diabetes and her high blood pressure. Patient thinks that she is also having blood in her urine. Patient denies any abdominal pain but also does complain of lower back pain. Related Data Previous Rx's ?Medication ?Instructions ?Recorded vits no.126-ferrous fum 0.126 - 28 tab PO DAILY 30 days 07/19/24 28 mg iron-folic acid 800 mcg #60 tabs tablet (Classic ) insulin aspart U-100 100 unit/mL 15 unit (0.15 mL) subcut TID 30 08/16/24 (3 mL) subcutaneous pen (Novolog days #15 mL FlexPen U-100 Insulin aspart) insulin glargine 100 unit/mL (3 40 unit (0.4 mL) subcut BID 30 08/16/24 mL) subcutaneous pen (Basaglar days #24 mL KwikPen U-100 Insulin) labetalol 200 mg tablet 200 mg PO BID 30 days #60 tabs 08/16/24 nifedipine 30 mg tablet,extended 30 mg PO QDAY #30 tabs 08/16/24 release 24 hr (Procardia XL) ondansetron 4 mg disintegrating 4 mg PO Q8H PRN nausea and 08/16/24 tablet vomiting #14 tabs Allergies Allergy/AdvReac Type Severity Reaction Status Date / Time No Known Allergies Allergy Verified 09/08/24 07:57 Review of Systems Review of Systems Narrative Review of Systems: Review of system reviewed and within normal limits except mentioned in HPI ED Exam Narrative Physical exam: VITAL SIGNS: Reviewed. GENERAL APPEARANCE: Alert and interactive, follows commands, no acute distress, HEAD AND FACE: Non-traumatic. ENT: PERRL, pink conjunctivitis, eyelid no trauma, Mucous membrane moist. NECK: Supple, nontender, no nuchal rigidity. CHEST: No tenderness, no crepitus, no paradoxical movement, no retractions. LUNGS: Clear, well ventilated, symmetric, no rales, no wheezing, no ronchi, no stridor, good breath sounds bilaterally. HEART: Regular rate, regular rhythm, no murmur, no gallops. ABDOMEN: Soft, positive bowel sounds, nondistended, no guarding, nontender, no rebound, no masses, RECTAL: Deferred. GENITAL: Deferred. NEUROLOGICAL: Gross motor function intact sensory function intact, Appropriate for age. MUSCULOSKELETAL: low back nontender, full range of motion. EXTREMITIES: Nontender, full range of motion. SKIN: Color pink, dry, no rash, no lacerations, no abrasions, no contusions. LYMPHATICS: Deferred. Course Quality Measures none Orders Category Date Time Status US OB <= 14 weeks fetus Stat Exams 09/08/24 09:03 Completed ABO/RH Type Stat Lab 09/08/24 08:46 Completed Beta HCG,Quantitative Stat Lab 09/08/24 08:46 Completed CBC Stat Lab 09/08/24 08:46 Completed Comprehensive Metabolic Panel Stat Lab 09/08/24 08:46 Completed Urinalysis, C/S if Indicated Stat Lab 09/08/24 08:20 Completed Urinalysis, C/S if Indicated Stat Lab 09/08/24 09:04 Ordered Urine Culture Stat Lab 09/08/24 08:20 Received Vital Signs Vital signs: Vital Signs Temperature 98.3 F 09/08/24 08:18 Pulse Rate 92 09/08/24 08:18 Respiratory Rate 16 09/08/24 08:18 Blood Pressure 146/79 H 09/08/24 08:18 Pulse Oximetry (%) 100 09/08/24 08:18 Oxygen Delivery Method Room Air 09/08/24 08:18 Urogenital - Female MDM Narrative MDM Narrative:: 33-year-old female who is a 3 para 1 1. Patient had a miscarriage last year. Patient's last menstrual period was April 08. Patient states she is approximately 13 weeks and 5 days . Today patient complains of mild vaginal spotting. Patient had an ultrasound transvaginally done approximately 2 days ago. Patient does not know if it is related to that. Patient reports that she is a high risk because of her diabetes and her high blood pressure. Patient thinks that she is also having blood in her urine. Patient denies any abdominal pain but also does complain of lower back pain. Ultrasound of showed single live intrauterine gestation about 13 weeks gestation no abnormality noted. Laboratory workup urinalysis all came back normal. Patient told me that she is not wearing any pantiliner pads, she is not having any recurrence of bleeding. She is stable for discharge home. Patient data External records reviewed:: None Clinical information provided by:: patient Social determinants that could affect healthcare access:: none Patient has the following chronic illnesses:: None How is presenting disease/condition affected by chronic disease/condition?: no chronic disease Evaluation data The following diagnostics were reviewed and interpreted by me:: lab results and radiology exam(s) Lab and/or radiology exams considered but not ordered:: None Interpretation Summary: See results MDM Medications / Prescriptions Medications or Prescriptions considered but not ordered:: None Medication administrations:: None Consultations Consultation(s) initiated? (list below): No Diagnosis Urogenital Female Differential Diagnosis: urinary tract infection and other (Threatened , vaginal bleeding in ) Most likely diagnosis given after review of the tests above:: Vaginal bleeding in early Admission Indicated Admission indicated?: not indicated Admission Request Was there a request for admission?: No Disposition Plan Disposition Plan: Discharge Discharge Attestation Discharge Attestation: The patient was given an opportunity to ask questions and understood the discharge instructions. Discharge instructions specifically effects, indications for sooner follow up or return to the emergency department, and the expected course of current diagnosis. Patient condition: Stable Discharge Plan Plan Patient Disposition: HOME (Self Care) Discharge Disposition comment: Stable Prescriptions/Referrals Prescriptions/Med Rec: No Action Classic 28 mg iron- 800 mcg tablet 0.126 - 28 tab PO DAILY 30 Days Qty: 60 2RF insulin glargine [Basaglar KwikPen U-100 Insulin] 100 unit/mL (3 mL) insulin pen 40 unit subcut BID 30 Days Qty: 24 4RF insulin aspart U-100 [Novolog FlexPen U-100 Insulin] 100 unit/mL (3 mL) insulin pen 15 unit subcut TID 30 Days Qty: 15 2RF labetalol 200 mg tablet 200 mg PO BID 30 Days Qty: 60 4RF nifedipine [Procardia XL] 30 mg tablet extended release 24hr 30 mg PO QDAY Qty: 30 2RF ondansetron 4 mg tablet,disintegrating 4 mg PO Q8H PRN (Reason: nausea and vomiting) Qty: 14 0RF Referrals: No Primary/Family,Physician [Primary Care Provider] - In 1 week Problem List Clinical Impression: Bleeding in early Patient/Caregiver Discharge Instructions Education Materials: Bleeding During Early Additional Instructions: Thank you for the opportunity for serving you today. You are stable for discharged . 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
== END 2024-09-08 13:38 | disposition home or self-care (01) ==
PROVIDERS: Nurse Practitioner Family; Emergency Provider Emergency Medicine
DX: O20.9 Hemorrhage in early pregnancy, unspecified (principal); O24.111 Pre-existing type 2 diabetes mellitus, in pregnancy, first trimester; Z3A.13 13 weeks gestation of pregnancy
CPT/HCPCS: 36415; 76801; 80053; 81001; 84702; 85025; 86900; 86901; 87086; 99284

== ENCOUNTER 2024-09-11 14:47 | Outpatient (AMB) | payer MEDICAID, SELFPAY ==
[2024-09-11 15:00] VITALS: BP 128/87; PULSE 89; RESP 16; TEMP 36.6; O2SAT 96; BMI 36.6
--- NOTE | 2024-09-11 15:00 | OBCLNT_ITS ---
Vital Signs 09/11/24 15:00 Height 1.68 m Height Method Stated Weight 103.419 kg Weight Measurement Method Standing Scale BMI 36.6 BP 128/87 H Blood Pressure Source Automatic Cuff Blood Pressure Location Left Upper Arm Position Sitting Respiration 16 Pulse 89 Pulse Source Monitor Temp 97.8 F Temp Source Oral Pulse Oximetry (%) 96 Oxygen Delivery Method Room Air Allergies/Home Meds Allergies & Medications Allergies No Known Allergies Allergy (Verified 11/11/24 17:05) Medication Reconciliation vits no.126-ferrous fum 28 mg iron-folic acid 800 mcg tablet (Classic ) 0.126 - 28 tab PO DAILY 30 days #60 tabs 07/19/24 [Rx Confirmed 11/11/24] insulin aspart U-100 100 unit/mL (3 mL) subcutaneous pen (Novolog FlexPen U-100 Insulin aspart) 15 unit (0.15 mL) subcut TID 30 days #15 mL 08/16/24 [Rx Confirmed 11/11/24] insulin glargine 100 unit/mL (3 mL) subcutaneous pen (Basaglar KwikPen U-100 Insulin) 40 unit (0.4 mL) subcut BID 30 days #24 mL 08/16/24 [Rx Confirmed ] labetalol 200 mg tablet 200 mg PO BID 30 days #60 tabs 08/16/24 [Rx Confirmed 11/11/24] ondansetron 4 mg disintegrating tablet 4 mg PO Q8H PRN nausea and vomiting #14 tabs 08/16/24 [Rx Confirmed 11/11/24] insulin NPH isoph U-100 human 100 unit/mL (3 mL) subcutaneous pen (Humulin N NPH U-100 Insulin KwikPen) 40 unit (0.4 mL) subcut BID 30 days #24 mL 09/17/24 [Rx Confirmed 11/11/24] blood pressure test kit-medium #1 ea 11/14/24 [Rx] labetalol 400 mg tablet 400 mg PO BID 30 days #60 tabs 11/14/24 [Rx] Intake Visit Data Collection New Patient or Established: Established Patient (seen at [facility] within 3 years) Reason for Visit:: CARE Seen by Clinical Staff ONLY (RN/MA): No Cafe Manager Required: No Do You Feel Safe at Home: Yes Authorities Contacted: N/A PCP or OBGYN visit in last 3 months: Yes Hx Now: Yes Are you currently on any form of Control: No Pain Present Currently: Yes Pain Location: Head Pain Scale Used: Mccarty-Ohara/Numerical Pain scale:: 8 Smoking Status Smoking Status: Never smoker Questionnaires Covid-19 Vaccine Questionnaire Has patient been vacinated for Covid-19 Have you been vacinated for Covid-19: No PHQ-9 PHQ-2 Over the last 2 weeks, how often have you been bothered by any of the following problems? 1. Little interest or pleasure in doing things: not at all 2. Feeling down, depressed, or hopeless: not at all Total score: 0 PHQ-9 3. Trouble falling or staying asleep, or sleeping too much: Not at all 4. Feeling tired or having little energy: Not at all 5. Poor appetite or overeating: Not at all 6. Feeling bad about yourself - or that you are a failure or have let yourself or your family down: Not at all 7. Trouble concentrating on things, such as reading the newspaper or watching television: Not at all 8. Moving or speaking so slowly that other people could have noticed? - Or the opposite - being so fidgety or restless that you have been moving around a lot more than usual: not at all 9. Thoughts that you would be better off or of hurting yourself in some way: Not at all Total score: 0 Source: Developed by Drs. Duy Norton, Namita Maciel, Ashok Walker and colleagues, with an educational gabrielle from [employer]. 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 She was seen in the ER on September 08 for this issue. This is the third time she has experienced blood in her urine, with two episodes occurring before her ER visit and one this morning. She took a picture of the blood in her urine this morning to show the doctor. The bleeding seems to have started suddenly, with no clear precipitating factors mentioned. The patient also reports experiencing chills, which may be associated with her urinary symptoms. Her previous - related nausea appears to be improving. She denies any fever. Patient mentions experiencing pain in her upper back, specifically in the cervical spine area. She had an ER visit on September 08 for the same complaint of blood in her urine. During that visit, she underwent an ultrasound, which reportedly showed normal results. The ER did not prescribe any antibiotics, stating there was no infection detected. She is in early , exact weeks not specified. Recent ER visit on September 08, 2024, for urinary symptoms included an ultrasound which was reported as everything looked good . Patient is taking Tylenol for muscle pain in the neck/back area. Care OB Visit Log OB Flowsheet Initial Weight: Not Recorded Date -?-?-?-?-?-?-?-?-?-?-?-?- EGA Weight BP Alb Glu CTX Pres Fundal ht FHR Mov Dilation Station Effacement Hx Notes Visit Note 07/19/24 -?-?-?-?-?-?-?-?-?-?-?-?- 6w 3d absent 33-year -old 2 para 1 for OBI. Previous C- section x 1. Patient is type II diabetic. She takes metformin thousand and NovoLog 38 units and then she also takes Levemir 32 units. Patient stopped taking her Ozempic 2 weeks ago. She has a history of irregular menses. Patient had a 6-week ultrasound July 16, 2024 and this dated her March 13, 2025. History of chronic hypertension. Patient takes lisinopril 2.5 daily. She denies any SAB complaints at this time. Denies any nausea and vomiting. The patient is taking vitamins. So I discussed SAB precautions with patient. Consulted with OB regarding medication for chronic hypertension. Patient will be changed to labetalol 200 mg twice daily and that was ordered to pharmacy. I also ordered prenatals. Discussed diet and glucometer testing. SAB precautions reviewed with patient. OB panel with CMP hCG and TSH ordered. And I scheduled patient for MFM referral due to the diabetes and hypertension advanced maternal age. SAB precautions reviewed and patient return in 4 weeks with OB 08/16/24 -?-?-?-?-?-?-?-?-?-?-?-?- 10w 3d 100.754 kg 134/88 30yo @12w5d, severe hyperemesis (recent 5-day admission), low K+, chronic HTN on labetalol/Procardia, bipolar disorder on lamotrigine, insomnia. Plan: continue meds (Phenergan, Zofran, Reglan, Protonix, prednisone), refill prescriptions, labs for genetic testing, welfare note, check FHR by elviso when room available. @10w5d, T2DM on Basag lar/NovoLog, chronic HTN on labetalol. Plan: initial labs incl. NIPT, SMA, CF; vitamins; MFM/nutrition referral if indicated; routine care. 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 Reports nausea, no CTX/LOF/VB, denies SHARMA/VC/RUQ pain. Active lifestyle but difficulty with dietary adherence noted. FHR visualized with motion, bpm not recorded. Labs: UPCR 563, glucose post-meal 219, g enetic labs pending from 01/17. Insulin: Basaglar 40u AM/8u PM, NovoLog 15u TID. Plan: Insulin adjusted to Basaglar 40u BID, NovoLog 20u TID (total daily dose 140u). Patient educated on diabetic diet; food list provided. Encouraged postprandial activity for glucose control. Continue labetalol. Monitor for preeclampsia; preeclampsia panel pending. Await genetic results and MFM referral. Follow up in 2 weeks. 09/17/24 -?-?-?--?-?-?-?-?-?-?-?-?- 15w 0d 105.687 kg 121/81 absent 135 at 15w0d with T2DM and HTN. Reports difficulty with diet adherence and recent postprandial glucose spikes up to 247. Currently on Basaglar 40 BID and NovoLog 20 TID, total 140 units/day. CGM in place. [facility] recommends switch to NPH. Also reports pedal edema, likely multifactorial. NIPT neg, male fetus. Plan: change Basaglar to NPH per MFM, send script, continue CGM, f/u 4wks, await U/S report. Stamp Maker on glucose targets, diet, and edema. Continue routine care TAPAN Calculator Estimated Delivery Date Method Current WG Current Estimate 03/11/25 Ultrasound #2 23w 6d Other Estimates 01/12/25 LMP (Uncertain) 32w 1d Notes Visit Date: 07/19/24 Last Updated by: Jackelyn June CNM 33 yo . irregular menses, sono: 07/16/24: IUP viable, 6 week, EDC 03/13/25 Exam General General Appearance: alert, in no apparent distress and healthy appearing Head Head exam: atraumatic Neck Neck exam: Present normal inspection and trachea midline Chest Chest inspection: Present normal inspection and symmetric chest wall rise External exam: Present normal external exam; Absent tenderness Neuro Neurological exam: Present oriented X3 Psych Psychiatric exam: Present normal affect and normal mood Office Procedures OB Clinic LOC & Office Proc's Nursing/Assessment Patient Status: Established Patient OB Clinic Nursing Assessment: Medication Reconciliation, Update PMH in EMR and Vital Signs OB Clinic Coordination of Care: AMA, Complex Care and Chronic Disease 1-5, Consent,records obtained, informed consent, Education Simp Pt/Fam, Lab and Imaging orders, Results/Orders obtained and Staff clarify orders Special Needs: Heart tones Established Patient Charge Established Patient Point Assignment: 155 Established Patient Point Charge: EP Level 4 (120-155) Assessment & Plan Diagnosis / Problem List (1) UTI in : Status: Acute (2) Previous section: Status: Acute (3) Chronic hypertension affecting : Status: Acute (4) Diabetes 1.5, managed as type 2: Status: Acute Plan Suspected Urinary Tract Infection in : - 3 episodes of hematuria, most recent this morning. - Chills reported. - Negative urine culture from recent ER visit. - Normal ultrasound findings. - Empiric treatment warranted due to increased risk during . Plan: - Prescribe 5-day course of antibiotics. - Send prescription to [facility] pharmacy. - Advise increased fluid intake. - Follow-up ultrasound scheduled for next Tuesday or Tuesday. - Patient education: ? Small amounts of blood in urine may be acceptable. ? Return sooner if observing blood clots or bright red blood. ? If symptoms worsen during weekend or holiday, go to hospital for evaluation. - Monitor for resolution of symptoms. Cervical Spine Pain: - Likely musculoskeletal in nature. - Possibly exacerbated by or sleep positioning. Plan: - Recommend heat compresses for symptomatic relief. - Advise Tylenol for pain management as needed. - Educate patient that muscle relaxants and other medications are contraindicated during . - Anticipate possible improvement of muscle pain with UTI treatment.
== END 2024-09-11 15:43 | disposition home or self-care (01) ==
LOC: HODSOBC 14:47
PROVIDERS: Supervising Provider Obstetrics & Gynecology; Visit Provider Obstetrics & Gynecology
DX: O09.891 Supervision of other high risk pregnancies, first trimester (principal); O23.41 Unspecified infection of urinary tract in pregnancy, first trimester; O10.911 Unspecified pre-existing hypertension complicating pregnancy, first trimester; O24.111 Pre-existing type 2 diabetes mellitus, in pregnancy, first trimester; O09.291 Supervision of pregnancy with other poor reproductive or obstetric history, first trimester; O34.219 Maternal care for unspecified type scar from previous cesarean delivery; Z3A.00 Weeks of gestation of pregnancy not specified; Z79.899 Other long term (current) drug therapy; Z79.4 Long term (current) use of insulin
CPT/HCPCS: 99214; G0463

== ENCOUNTER 2024-09-17 09:17 | Outpatient (AMB) | payer MEDICAID, SELFPAY ==
[2024-09-17 09:40] VITALS: BP 121/81; PULSE 86; RESP 16; TEMP 36.5; O2SAT 97; BMI 37.4
--- NOTE | 2024-09-17 09:40 | OBCLNT_ITS ---
Vital Signs 09/17/24 09:40 Height 1.68 m Height Method Stated Weight 105.687 kg Weight Measurement Method Standing Scale BMI 37.4 BP 121/81 Blood Pressure Source Automatic Cuff Blood Pressure Location Right Upper Arm Position Sitting Respiration 16 Pulse 86 Pulse Source Monitor Temp 97.7 F Temp Source Oral Pulse Oximetry (%) 97 Oxygen Delivery Method Room Air Allergies/Home Meds Allergies & Medications Allergies No Known Allergies Allergy (Verified 09/17/24 09:41) Medication Reconciliation vits no.126-ferrous fum 28 mg iron-folic acid 800 mcg tablet (Classic ) 0.126 - 28 tab PO DAILY 30 days #60 tabs 07/19/24 [Rx Confirmed 09/17/24] insulin aspart U-100 100 unit/mL (3 mL) subcutaneous pen (Novolog FlexPen U-100 Insulin aspart) 15 unit (0.15 mL) subcut TID 30 days #15 mL 08/16/24 [Rx Confirmed 09/17/24] insulin glargine 100 unit/mL (3 mL) subcutaneous pen (Basaglar KwikPen U-100 Insulin) 40 unit (0.4 mL) subcut BID 30 days #24 mL 08/16/24 [Rx Confirmed 10/05] labetalol 200 mg tablet 200 mg PO BID 30 days #60 tabs 08/16/24 [Rx Confirmed 09/17/24] nifedipine 30 mg tablet,extended release 24 hr (Procardia XL) 30 mg PO QDAY #30 tabs 08/16/24 [Rx Confirmed 09/17/24] ondansetron 4 mg disintegrating tablet 4 mg PO Q8H PRN nausea and vomiting #14 tabs 08/16/24 [Rx Confirmed 09/17/24] Intake Visit Data Collection New Patient or Established: Established Patient (seen at [facility] within 3 years) Reason for Visit:: CARE Seen by Clinical Staff ONLY (RN/MA): No 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 1. Little interest or pleasure in doing things: not at all 2. Feeling down, depressed, or hopeless: not at all Total score: 0 PHQ-9 3. Trouble falling or staying asleep, or sleeping too much: Not at all 4. Feeling tired or having little energy: Not at all 5. Poor appetite or overeating: Not at all 6. Feeling bad about yourself - or that you are a failure or have let yourself or your family down: Not at all 7. Trouble concentrating on things, such as reading the newspaper or watching television: Not at all 8. Moving or speaking so slowly that other people could have noticed? - Or the opposite - being so fidgety or restless that you have been moving around a lot more than usual: not at all 9. Thoughts that you would be better off or of hurting yourself in some way: Not at all Total score: 0 Source: Developed by Drs. Duy Norton, Namita Maciel, Ashok Walker and colleagues, with an educational gabrielle from [employer]. Depression screen completed yes Social History Living Situation History Lives With: Family Housing: House Tobacco History Smoking Status: Never smoker Second Hand Smoke Exposure: No Alcohol History Alcohol Intake: Never Domestic Abuse History Do You Feel Safe at Home: Yes DIAL BUFFER: Past Medical History Past Medical History: No Hx Renal Disease, No Hx Diabetes Mellitus Type 1 and Yes Hx Diabetes Mellitus Type 2 History of Present Illness HPI Narrative Chief Complaint Routine visit at 15 weeks and 0 days gestation, high blood sugar levels Gladis Costello, , presents for routine visit at 15 weeks and 0 days gestation. Denies SHARMA, VC, and epigastric pain. - Gladis Costello is a -3 para-1 at 15 weeks and 0 days gestation with type 2 diabetes mellitus and hypertension, presenting for a routine visit. - She reports difficulty with dietary adherence. - Blood glucose control: - Postprandial glucose levels were as high as 219 mg/dL in initial baseline labs. - Recent weekend glucose levels reached 247 mg/dL, with previous highs around 150 mg/dL. - It takes about 48 hours for glucose levels to return to baseline after spikes. - Medication changes: - Insulin regimen adjusted to Basaglar 40 units BID and NovoLog 20 units TID, totaling 140 units of insulin daily. - [facility] suggested changing from Basaglar to NPH insulin. - New continuous glucose monitoring system implemented. - Reports feet swelling, attributed to insulin, blood pressure, and medication. - Recent healthcare interactions: - Visited [facility] on Tuesday for an ultrasound, report pending. - Genetics workup results received on August 26, 2019, showing negative NIPT and negative for trisomy. - gender determined to be male. Care OB Visit Log OB Flowsheet Initial Weight: Not Recorded Date -?-?-?-?-?-?-?-?-?-?-?-?- EGA Weight BP Alb Glu CTX Pres Fundal ht FHR Mov Dilation Station Effacement Hx Notes Visit Note 07/19/24 -?-?-?-?-?-?-?-?-?-?-?-?- 6w 3d absent 33-year -old 2 para 1 for OBI. Previous C- section x 1. Patient is type II diabetic. She takes metformin thousand and NovoLog 38 units and then she also takes Levemir 32 units. Patient stopped taking her Ozempic 2 weeks ago. She has a history of irregular menses. Patient had a 6-week ultrasound July 16, 2024 and this dated her March 13, 2025. History of chronic hypertension. Patient takes lisinopril 2.5 daily. She denies any SAB complaints at this time. Denies any nausea and vomiting. The patient is taking vitamins. So I discussed SAB precautions with patient. Consulted with OB regarding medication for chronic hypertension. Patient will be changed to labetalol 200 mg twice daily and that was ordered to pharmacy. I also ordered prenatals. Discussed diet and glucometer testing. SAB precautions reviewed with patient. OB panel with CMP hCG and TSH ordered. And I scheduled patient for MFM referral due to the diabetes and hypertension advanced maternal age. SAB precautions reviewed and patient return in 4 weeks with OB 08/16/24 -?-?-?-?-?-?-?-?-?-?-?-?- 10w 3d 100.754 kg 134/88 30yo @12w5d, severe hyperemesis (recent 5-day admission), low K+, chronic HTN on labetalol/Procardia, bipolar disorder on lamotrigine, insomnia. Plan: continue meds (Phenergan, Zofran, Reglan, Protonix, prednisone), refill prescriptions, labs for genetic testing, welfare note, check FHR by sono when room available. @10w5d, T2DM on Basag lar/NovoLog, chronic HTN on labetalol. Plan: initial labs incl. NIPT, SMA, CF; vitamins; MFM/nutrition referral if indicated; routine care. 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 Reports nausea, no CTX/LOF/VB, denies SHARMA/VC/RUQ pain. Active lifestyle but difficulty with dietary adherence noted. FHR visualized with motion, bpm not recorded. Labs: UPCR 563, glucose post-meal 219, g enetic labs pending from 01/17. Insulin: Basaglar 40u AM/8u PM, NovoLog 15u TID. Plan: Insulin adjusted to Basaglar 40u BID, NovoLog 20u TID (total daily dose 140u). Patient educated on diabetic diet; food list provided. Encouraged postprandial activity for glucose control. Continue labetalol. Monitor for preeclampsia; preeclampsia panel pending. Await genetic results and MFM referral. Follow up in 2 weeks. 09/17/24 -?-?-?-?-?-?-?-?-?-?-?-?- 15w 0d 105.687 kg 121/81 absent 135 at 15w0d with T2DM and HTN. Reports difficulty with diet adherence and recent postprandial glucose spikes up to 247. Currently on Basaglar 40 BID and NovoLog 20 TID, total 140 units/day. CGM in place. [facility] recommends switch to NPH. Also reports pedal edema, likely multifactorial. NIPT neg, male fetus. Plan: change Basaglar to NPH per MFM, send script, continue CGM, f/u 4wks, await U/S report. Supervisor Hardboard on glucose targets, diet, and edema. Continue routine care TAPAN Calculator Estimated Delivery Date Method Current WG Current Estimate 03/11/25 Ultrasound #2 15w 0d Other Estimates 01/12/25 LMP (Uncertain) 23w 2d Notes Visit Date: 07/19/24 Last Updated by: Jackelyn June, CHIDI 33 yo . irregular menses, sono: 07/16/24: IUP viable, 6 week, EDC 03/13/25 Exam General General Appearance: alert, in no apparent distress and healthy appearing Head Head exam: atraumatic Neck Neck exam: Present normal inspection and trachea midline Chest Chest inspection: Present normal inspection and symmetric chest wall rise External exam: Present normal external exam; Absent tenderness Neuro Neurological exam: Present oriented X3 Psych Psychiatric exam: Present normal affect and normal mood Office Procedures OB Clinic LOC & Office Proc's Nursing/Assessment Patient Status: Established Patient OB Clinic Nursing Assessment: Medication Reconciliation, Update PMH in EMR and Vital Signs OB Clinic Coordination of Care: AMA, Complex Care and Chronic Disease 1-5, Consent,records obtained, informed consent, Education Simp Pt/Fam, Lab and Imaging orders, Results/Orders obtained and Staff clarify orders Special Needs: Heart tones Established Patient Charge Established Patient Point Assignment: 155 Established Patient Point Charge: EP Level 4 (120-155) Assessment & Plan Diagnosis / Problem List (1) UTI in : Status: Acute (2) Previous section: Status: Acute (3) Chronic hypertension affecting : Status: Acute (4) Diabetes 1.5, managed as type 2: Status: Acute (5) Advanced maternal age (AMA) in : Status: Acute (6) Encounter for supervision of high risk in first trimester, antepartum: Status: Acute Plan Gladis Costello, at 15 weeks 0 days gestation, with type 2 diabetes mellitus and hypertension, presenting for routine visit with recent high blood glucose levels. Type 2 Diabetes Mellitus in Assessment: Patient's diabetes management is suboptimal with recent postprandial glucose levels as high as 247 mg/dL, despite current insulin regimen of Basaglar and NovoLog totaling 140 units daily. Previous adjustments to insulin dosage have been made, but glucose control remains challenging. Continuous glucose monitoring system recently implemented. [facility] suggested changing from Basaglar to NPH insulin. Plan: - Change insulin regimen from Basaglar to NPH as recommended by [facility] - Send new insulin prescription - Continue glucose monitoring with continuous monitoring system - Follow up in 4 weeks - Patient to contact office for any issues with insulin or other concerns Hypertension in Assessment: Patient has a history of hypertension. Current blood pressure status not provided in the transcript. Routine Care Assessment: at 15 weeks 0 days gestation. Genetic screening results negative for NIPT and trisomy. gender reported as male. Ultrasound performed at [facility], report pending. Plan: - Await final ultrasound report from [facility] - Follow up in 4 weeks for routine care Peripheral Edema Assessment: Patient reports feet swelling, attributed to insulin, blood pressure, and medication. Heart Rate (FHR) and Dates/Viability Verified Review Labs: Confirm results and address any abnormalities with treatment or referrals. History & Symptoms: Ask about nausea, vomiting, bleeding, or cramping. Screen for mental health concerns. Physical Exam: Check weight, blood pressure, and heart rate (via Doppler). Education: Discuss nutrition, exercise, and avoiding harmful substances. Review safe medications and warning signs (e.g., severe pain, bleeding). Screening Tests: Offer genetic screening if not done. Discuss upcoming anatomy scan (18-20 weeks). Plan: Schedule next visit (typically 4 weeks later) and any needed tests. Keep it supportive, address concerns, and ensure clear follow-up instructions.
== END 2024-09-17 10:03 | disposition home or self-care (01) ==
LOC: HODSOBC 09:17
PROVIDERS: Supervising Provider Obstetrics & Gynecology; Visit Provider Obstetrics & Gynecology
DX: O09.522 Supervision of elderly multigravida, second trimester (principal); O09.292 Supervision of pregnancy with other poor reproductive or obstetric history, second trimester; O34.219 Maternal care for unspecified type scar from previous cesarean delivery; O09.892 Supervision of other high risk pregnancies, second trimester; O23.42 Unspecified infection of urinary tract in pregnancy, second trimester; N39.0 Urinary tract infection, site not specified; O10.912 Unspecified pre-existing hypertension complicating pregnancy, second trimester; O24.112 Pre-existing type 2 diabetes mellitus, in pregnancy, second trimester; Z3A.15 15 weeks gestation of pregnancy; Z79.4 Long term (current) use of insulin; Z79.899 Other long term (current) drug therapy
CPT/HCPCS: 99214; G0463

== ENCOUNTER 2024-10-12 10:42 | Emergency (ER) | payer MEDICAID, SELFPAY ==
[2024-10-12 10:44] VITALS: BMI 37.8
[2024-10-12 10:56] VITALS: BP 131/86; PULSE 100; RESP 16; TEMP 36.9; O2SAT 98; BMI 37.8
--- NOTE | 2024-10-12 11:02 | PD.EDRME ---
Rapid Medical Screening Exam RME Arrival date/time: 10/12/24 10:42 CC: Headache, I have not felt my baby move in a while HPI patient is a G3, P1 headache onset last night no OTC medicines taken has a history of diabetes is morbidly obese. We discussed her condition with her OB who wanted her to come to the ER to get checked out . Patient is a G3, P2 at 18 weeks, denies vaginal bleeding states she has normal vaginal discharge last blood sugar states this morning was 110. Chief Complaint: Headache Time Seen by Provider: 10/12/24 10:58 Vital signs: Vital Signs Temperature 98.4 F 10/12/24 10:56 Pulse Rate 100 10/12/24 10:56 Respiratory Rate 16 10/12/24 10:56 Blood Pressure 131/86 H 10/12/24 10:56 Pulse Oximetry (%) 98 10/12/24 10:56 Oxygen Delivery Method Room Air 10/12/24 10:56
--- NOTE | 2024-10-12 11:25 | XR_ITS ---
Examination: Complete OB ultrasound greater than 14 weeks Date and time of exam: October 12, 2024 1133 hours INDICATIONS: Onset decreased movement today Findings: Viable intrauterine single fetus with single amniotic sac presentation breech Cardiac motion 148 BPM Placenta fundal maternal right grade 0 Umbilical cord insertion 3 vessel seen Amniotic fluid 4.7 cm spine maternal left Cervix 4.5 cm Ovaries obscured by bowel gas Composite estimated gestational age based on BPD, head circumference, abdominal circumference, femur length is 19 weeks 2 days Estimated weight 280.6 g. Survey of intracranial anatomy, spinal anatomy, abdominal anatomy, four-chamber heart performed with no abnormalities identified. Impression: Viable intrauterine gestation breech presentation Estimated gestational age 19 weeks 2 days
[2024-10-12] MEDS: ACETAMINOPHEN 325 MG TABLET 650 MG PO (11:26)
[2024-10-12 12:05] LABS: Basophils # (Auto) 0.0 Thou/mm3 (0.0-0.2); Basophils % (Auto) 1 % (0-2.5); Eosinophils # (Auto) 0.2 Thou/mm3 (0.0-0.5); Eosinophils % (Auto) 2 % (0-10); Hematocrit 33.9 % (36.0-46.0); Hemoglobin 11.4 g/dL (12.0-16.0); Immature Granulocytes Auto 0.09 Thou/mm3 (0.00-0.00); Lymphocytes # (Auto) 2.1 Thou/mm3 (1.0-4.8); Lymphocytes % (Auto) 25 % (10-50); Mean Corpuscular HGB Conc 33.6 g/dl (31.0-37.0); Mean Corpuscular Hemoglobin 29.1 pg (25.0-35.0); Mean Corpuscular Volume 87 fL (80-100); Monocytes # (Auto) 0.7 Thou/mm3 (0.0-0.8); Monocytes % (Auto) 8 % (0-12); Neutrophils # (Auto) 5.4 Thou/mm3 (1.8-7.7); Neutrophils % (Auto) 64 % (37-80); Nucleated Red Blood Cell # 0.00 Thou/mm3 (0.00-0.00); Nucleated Red Blood Cell % 0 /100 WBC (0); Platelet Count 222 Thou/mm3 (140-440); RDW Standard Deviation 45.1 fL (36.4-46.3); Red Blood Count 3.92 Miln/mm3 (4.00-5.20); White Blood Count 8.5 Thou/mm3 (3.6-11.0)
[2024-10-12 12:43] LABS: Beta HCG,Quantitative 5170 mIU/mL (<5.0)
[2024-10-12 12:46] LABS: Collection Type, Urine Clean Catch
[2024-10-12 12:56] LABS: Bacteria,Urine Rare; Bilirubin,Urine Negative (Negative); Blood,Urine Negative (Negative); Clarity,Urine Clear (Clear/Hazy); Color,Urine Yellow (Lt Yel-Yel); Culture Indicated,Urine Not Indicated; Glucose, Urine Trace (Negative); Ketones,Urine 1+ (Negative); Leukocyte Esterase,Urine Negative (Negative); Nitrite,Urine Negative (Negative); PH,Urine 5.5 (5.0-7.0); Protein,Urine 1+ (Neg - Trace); RBC,Urine 2 /hpf (0-3); Specific Gravity,Urine 1.025 (1.001-1.035); Squamous Epithelial Cell,Urine 3 /hpf (0-5); Urobilinogen,Urine Negative mg/dL (0.0-1.0); WBC,Urine 2 /hpf (0-5)
--- NOTE | 2024-10-12 13:24 | PD.EDADULT ---
ED General RME/HPI General Chief complaint: Headache Stated complaint: SHARMA, 18 WEEKS PREG LOW MOVEMENT SENT BY [facility] Time Seen by Provider: 10/12/24 10:58 Arrival date/time: 10/12/24 10:42 See RMA below RME / HPI RME / HPI narrative: 10/12/24 10:42 CC: Headache, I have not felt my baby move in a while HPI patient is a G3, P1 headache onset last night no OTC medicines taken has a history of diabetes is morbidly obese. We discussed her condition with her OB who wanted her to come to the ER to get checked out . Patient is a G3, P2 at 18 weeks, denies vaginal bleeding states she has normal vaginal discharge last blood sugar states this morning was 110. Related Data Previous Rx's ?Medication ?Instructions ?Recorded vits no.126-ferrous fum 0.126 - 28 tab PO DAILY 30 days 07/19/24 28 mg iron-folic acid 800 mcg #60 tabs tablet (Classic ) insulin aspart U-100 100 unit/mL 15 unit (0.15 mL) subcut TID 30 08/16/24 (3 mL) subcutaneous pen (Novolog days #15 mL FlexPen U-100 Insulin aspart) insulin glargine 100 unit/mL (3 40 unit (0.4 mL) subcut BID 30 08/16/24 mL) subcutaneous pen (Basaglar days #24 mL KwikPen U-100 Insulin) labetalol 200 mg tablet 200 mg PO BID 30 days #60 tabs 08/16/24 nifedipine 30 mg tablet,extended 30 mg PO QDAY #30 tabs 08/16/24 release 24 hr (Procardia XL) ondansetron 4 mg disintegrating 4 mg PO Q8H PRN nausea and 08/16/24 tablet vomiting #14 tabs insulin NPH isoph U-100 human 100 40 unit (0.4 mL) subcut BID 30 09/17/24 unit/mL (3 mL) subcutaneous pen days #24 mL (Humulin N NPH U-100 Insulin KwikPen) Allergies Allergy/AdvReac Type Severity Reaction Status Date / Time No Known Allergies Allergy Verified 10/12/24 10:44 Review of Systems Review of Systems Narrative Review of Systems: GEN: No fever, no chills, no weight loss EYES: No discharge, no visual changes, no pain HEENT: No ear pain, no congestion, no sore throat PULM: No shortness of breath, no cough, no congestion CV: No chest pain, no dyspnea on exertion, no palpitations GI: No nausea, no vomiting, no diarrhea, no pain, no constipation : No frequency, no urgency, no dysuria MUSC/SKEL: No joint pain, no back pain SKIN: No rash PSYCH: No hallucinations, no depression HEME/LYMPH: No easy bleeding or bruising tendencies NEURO: No weakness, + headache Past Medical History Past Medical History CARDIAC: Negative Congestive Heart Failure RESPIRATORY: Negative Chronic Obstructive Pulmonary Disease (COPD) GENITOURINARY: Negative Renal Disease ENDOCRINE: Positive Diabetes Mellitus Type 2; Negative Diabetes Mellitus Type 1 Surgical History SURGICAL: Positive Section Social History SMOKING STATUS: Never smoker SECOND HAND EXPOSURE: No ED Exam Narrative Physical exam: [General: Obese not in any acute distress Head normocephalic HEENT: Within acceptable limits Neck is supple nontender Chest equal chest rise nontender to palpation Respiratory: Clear to auscultation no wheezes crackles or rubs CV: Rate rhythm is regular no murmurs rubs or clicks Abdomen is distended secondary to body habitus soft nontender no masses positive bowel sounds all 4 quadrants Back: No CVA tenderness no spinous process tenderness from cervical spine thoracic and lumbar spine Skin: Intact no petechiae rash induration ulceration or crepitus Extremities: Moving all extremity against resistance cap refill less than 2 seconds neurosensory intact Neuro: Awake alert oriented x3 Glascow coma 15 no focal deficits] Course Quality Measures none Orders Category Date Time Status US OB >= 14 weeks Fetus Stat Exams 10/12/24 11:25 Completed ABO/RH Type Stat Lab 10/12/24 11:50 Completed Beta HCG,Quantitative Stat Lab 10/12/24 11:50 Completed CBC Stat Lab 10/12/24 11:50 Completed Urinalysis, C/S if Indicated Stat Lab 10/12/24 12:41 Completed Acetaminophen Tab [Tylenol Tab] Med 10/12/24 11:01 Discontinued 650 mg PO X1 ONE Vital Signs Vital signs: Vital Signs Temperature 98.4 F 10/12/24 10:56 Pulse Rate 100 10/12/24 10:56 Respiratory Rate 16 10/12/24 10:56 Blood Pressure 131/86 H 10/12/24 10:56 Pulse Oximetry (%) 98 10/12/24 10:56 Oxygen Delivery Method Room Air 10/12/24 10:56 Discharge Plan Plan Patient Disposition: HOME (Self Care) Patient condition on transfer: Stable Prescriptions/Referrals Prescriptions/Med Rec: No Action Classic 28 mg iron- 800 mcg tablet 0.126 - 28 tab PO DAILY 30 Days Qty: 60 2RF insulin glargine [Basaglar KwikPen U-100 Insulin] 100 unit/mL (3 mL) insulin pen 40 unit subcut BID 30 Days Qty: 24 4RF insulin aspart U-100 [Novolog FlexPen U-100 Insulin] 100 unit/mL (3 mL) insulin pen 15 unit subcut TID 30 Days Qty: 15 2RF labetalol 200 mg tablet 200 mg PO BID 30 Days Qty: 60 4RF nifedipine [Procardia XL] 30 mg tablet extended release 24hr 30 mg PO QDAY Qty: 30 2RF ondansetron 4 mg tablet,disintegrating 4 mg PO Q8H PRN (Reason: nausea and vomiting) Qty: 14 0RF Humulin N NPH Insulin KwikPen 100 unit/mL (3 mL) insulin pen 40 unit subcut BID 30 Days Qty: 24 2RF Referrals: Mao Cavazos PA-C [Primary Care Provider] - In 1 week Problem List Clinical Impression: , Headache Patient/Caregiver Discharge Instructions Education Materials: Preg 2nd Trimester Additional Instructions: Follow-up with your primary care provider 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 Print Language: [place]serratian Stand Alone Forms: Gisselle Award Info., Patient Portal Info Letter PA/PATCH FINISHER Supervising Physician PA/PATCH FINISHER Supervising Physician: Javid Patterson ENP [facility] Labs/Rad/Tests considered, not Ordered Describe details: CBC shows mild anemia no leukocytosis thrombocytopenia Urine shows 1+ protein 1+ ketones no other acute finding beta hCG at 5170 ABO Rh O+ Ultrasound shows a single IUP breech position 19 weeks 2 days. Imaging Provider imaging interpretation(s): Reassessment of this patient at 1325 the patient's headache is resolved after Tylenol, patient had a single IUP at 19 weeks 3 days in breech position with good heart tones at this time discharging the patient home with headache and . Medication Administration(s) Medication Administration History Discontinued Medications Acetaminophen (Acetaminophen 325 Mg Tablet) 650 mg PO X1 ONE Stop: 10/12/24 11:02 Last Admin: 10/12/24 11:26 Dose: 650 mg Documented By: OA
== END 2024-10-12 14:07 | disposition home or self-care (01) ==
PROVIDERS: Registered Nurse General Practice; Emergency Provider Family Medicine; PCP Physician Assistant
DX: O99.891 Other specified diseases and conditions complicating pregnancy (principal); R51.9 Headache, unspecified; Z3A.19 19 weeks gestation of pregnancy
CPT/HCPCS: 36415; 76805; 81001; 84702; 85025; 86900; 86901; 99283; A9270

== ENCOUNTER 2024-10-19 10:23 | Outpatient (AMB) | payer MEDICAID, SELFPAY ==
[2024-10-19 10:55] VITALS: BP 124/84; PULSE 90; RESP 17; TEMP 36.7; O2SAT 98; BMI 38.6
--- NOTE | 2024-10-19 10:55 | AMB.OBVISIT ---
Vital Signs 10/19/24 10:55 Height 1.68 m Height Method Measured Weight 109.032 kg Weight Measurement Method Standing Scale BMI 38.6 BP 124/84 Blood Pressure Source Automatic Cuff Blood Pressure Location Right Upper Arm Position Sitting Respiration 17 Pulse 90 Pulse Source Monitor Temp 98.0 F Temp Source Temporal Artery Scan Pulse Oximetry (%) 98 Oxygen Delivery Method Room Air Allergies/Home Meds Allergies & Medications Allergies No Known Allergies Allergy (Verified 12/24/24 10:56) Medication Reconciliation vits no.126-ferrous fum 28 mg iron-folic acid 800 mcg tablet (Classic ) 0.126 - 28 tab PO DAILY 30 days #60 tabs 07/19/24 [Rx Confirmed 12/24/24] insulin aspart U-100 100 unit/mL (3 mL) subcutaneous pen (Novolog FlexPen U-100 Insulin aspart) 15 unit (0.15 mL) subcut TID 30 days #15 mL 08/16/24 [Rx Confirmed 12/24/24] insulin glargine 100 unit/mL (3 mL) subcutaneous pen (Basaglar KwikPen U-100 Insulin) 40 unit (0.4 mL) subcut BID 30 days #24 mL 08/16/24 [Rx Confirmed 12/24/24] labetalol 200 mg tablet 200 mg PO BID 30 days #60 tabs 08/16/24 [Rx Confirmed 12/24/24] ondansetron 4 mg disintegrating tablet 4 mg PO Q8H PRN nausea and vomiting #14 tabs 08/16/24 [Rx Confirmed 12/24/24] insulin NPH isoph U-100 human 100 unit/mL (3 mL) subcutaneous pen (Humulin N NPH U-100 Insulin KwikPen) 40 unit (0.4 mL) subcut BID 30 days #24 mL 09/17/24 [Rx Confirmed 12/24/24] blood pressure test kit-medium #1 ea 11/14/24 [Rx Confirmed 12/24/24] labetalol 400 mg tablet 400 mg PO BID 30 days #60 tabs 11/14/24 [Rx Confirmed 12/24/24] Intake Visit Data Collection New Patient or Established: Established Patient (seen at [facility] within 3 years) Reason for Visit:: OBC Consent obtained for Telemed Visit: No Seen by Clinical Staff ONLY (RN/MA): No Can Closing Machine Tender Required: No Do You Feel Safe at Home: Yes Authorities Contacted: N/A PCP or OBGYN visit in last 3 months: Yes Date of Last PCP or OBGYN visit: 10/12/24 Hx Now: Yes Are you currently on any form of Control: No Pain Present Currently: No Pain Scale Used: Mccarty-Ohara/Numerical Pain scale:: 0 Smoking Status Smoking Status: Never smoker Questionnaires Covid-19 Vaccine Questionnaire Has patient been vacinated for Covid-19 Have you been vacinated for Covid-19: Yes PHQ-9 PHQ-2 Over the last 2 weeks, how often have you been bothered by any of the following problems? 1. Little interest or pleasure in doing things: not at all PHQ-9 8. Moving or speaking so slowly that other people could have noticed? - Or the opposite - being so fidgety or restless that you have been moving around a lot more than usual: not at all Source: Developed by Drs. Duy Norton, Namita Maciel, Ashok Walker and colleagues, with an educational gabrielle from [employer]. 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 Previous x 1. Patient is type II diabetic. She takes metformin thousand and NovoLog 38 units and then she also takes Levemir 32 units. Patient stopped taking her Ozempic 2 weeks ago. She has a history of irregular menses. Patient had a 6-week ultrasound July 16, 2024 and this dated her March 13, 2025. History of chronic hypertension. Patient takes lisinopril 2.5 daily. She denies any SAB complaints at this time. Denies any nausea and vomiting. The patient is taking vitamins. So I discussed SAB precautions with patient. Consulted with OB regarding medication for chronic hypertension. Patient will be changed to labetalol 200 mg twice daily and that was ordered to pharmacy. I also ordered prenatals. Discussed diet and glucometer testing. SAB precautions reviewed with patient. OB panel with CMP hCG and TSH ordered. And I scheduled patient for MFM referral due to the diabetes and hypertension advanced maternal age. SAB precautions reviewed and patient return in 4 weeks with OB 08/16/24 <del>?</del> 10w 3d 100.754 kg 134/88 30yo @12w5d, severe hyperemesis (recent 5-day admission), low K+, chronic HTN on labetalol/Procardia, bipolar disorder on lamotrigine, insomnia. Plan: continue meds (Phenergan, Zofran, Reglan, Protonix, prednisone), refill prescriptions, labs for genetic testing, welfare note, check FHR by elviso when room available. @10w5d, T2DM on Basaglar/NovoLog, chronic HTN on labetalol. Plan: initial labs incl. NIPT, SMA, CF; vitamins; MFM/nutrition referral if indicated; routine care. 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 Reports nausea, no CTX/LOF/VB, denies SHARMA/VC/RUQ pain. Active lifestyle but difficulty with dietary adherence noted. FHR visualized with motion, bpm not recorded. Labs: UPCR 563, glucose post-meal 219, genetic labs pending from 01/17. Insulin: Basaglar 40u AM/8u PM, NovoLog 15u TID. Plan: Insulin adjusted to Basaglar 40u BID, NovoLog 20u TID (total daily dose 140u). Patient educated on diabetic diet; food list provided. Encouraged postprandial activity for glucose control. Continue labetalol. Monitor for preeclampsia; preeclampsia panel pending. Await genetic results and MFM referral. Follow up in 2 weeks. 09/17/24 <del>?</del> 15w 0d 105.687 kg 121/81 absent 135 at 15w0d with T2DM and HTN. Reports difficulty with diet adherence and recent postprandial glucose spikes up to 247. Currently on Basaglar 40 BID and NovoLog 20 TID, total 140 units/day. CGM in place. [facility] recommends switch to NPH. Also reports pedal edema, likely multifactorial. NIPT neg, male fetus. Plan: change Basaglar to NPH per MFM, send script, continue CGM, f/u 4wks, await U/S report. 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 Continue routine care 10/19/24 <del>?</del> 19w 4d 109.032 kg 124/84 absent cephalic 155 active - Gladis Costello is presenting for a visit at 19 weeks and 4 days gestation with a past medical history of type 2 diabetes mellitus and chronic hypertension. - She reports her blood sugar numbers are getting better since her insulin was changed to NPH per maternal- medicine. - Her highest recent blood sugar was 163 today. - She now experiences episodes of low blood sugar. - She reports adherence to dietary modifications. - She has started feeling some movements described as a little bit like tickling. - She has an upcoming appointment at [facility] on November 06. - Continue current insulin regimen with NPH as prescribed by M - Patient to adjust insulin dosing: reduce by 2 units if glucose low, increase by 2-3 units if glucose high - Continue current diet management - Follow up appointment at [facility] scheduled for November 06 - Obtain A1c and thyroid panel 1-2 days before next appointment - Lab order provided to patient 11/21/24 <del>?</del> 24w 2d 108.522 kg 126/85 absent cephalic 25 142 active - Blood glucose control: - Highest recent blood glucose was 163, which is lower than previous readings - Patient reports blood sugars have been okay and more or less the same as last visit - Current diabetes management: - Insulin regimen: 44 units of long-acting insulin morning and night (88 units total) - 36 units of fast-acting insulin (Lyspro) split into 12 units three times daily - Continuing metformin as prescribed - Continue current insulin regimen: 44 units slow-acting insulin morning and night, 36 units fast-acting insulin split into 12-12 - Continue metformin as prescribed - Start aspirin 81mg daily, [id number] if necessary - Perform A1c test - Follow up in 4 weeks - Continue management with [facility] diabetes care - Continue current insulin regimen: 44 units slow-acting insulin morning and night, 36 units fast-acting insulin split into 02-23-12 - Continue metformin as prescribed - Start aspirin 81mg daily, [id number] if necessary - Perform A1c test - Follow up in 4 weeks - Continue management with [facility] diabetes [facility]. TAPAN Calculator Estimated Delivery Date Method Current WG Current Estimate 03/11/25 Ultrasound #2 29w 1d Other Estimates 01/12/25 LMP (Uncertain) 37w 3d Notes Visit Date: 11/21/24 Last Updated by: Adams Cohen MD - Ultrasound (performed last week, finalized on 11/21/2024)/[facility]: - weight: 579 grams (1 pound 4 ounces) - Gestational age: Consistent with dates - Anatomy survey: Overall normal study Visit Date: 10/19/24 Last Updated by: Adams Cohen MD - Type 2 Diabetes Mellitus - Chronic hypertension - (19 weeks 4 days gestation) Visit Date: 07/19/24 Last Updated by: Jackelyn June, RIZWANA 33 yo . irregular menses, sono: 07/16/24: IUP viable, 6 week, EDC 03/13/25 Assessment & Plan Diagnosis / Problem List (1) UTI in : Status: Acute (2) Previous section: Status: Acute (3) Chronic hypertension affecting : Status: Acute (4) Diabetes 1.5, managed as type 2: Status: Acute (5) Advanced maternal age (AMA) in : Status: Acute Plan Problem List - Type 2 Diabetes Mellitus - Chronic hypertension - (19 weeks 4 days gestation) Assessment 19-week 4-day patient with type 2 diabetes mellitus on insulin therapy showing improved glycemic control with recent glucose reading of 163 mg/dL, though patient reports experiencing hypoglycemic episodes. Patient has chronic hypertension as comorbid condition. heart rate is normal at 162 bpm. Patient reports beginning to feel movements appropriate for gestational age. Insulin regimen was previously changed to NPH per maternal- medicine recommendations. Plan - Continue current insulin regimen with NPH as prescribed by MFM - Patient to adjust insulin dosing: reduce by 2 units if glucose low, increase by 2-3 units if glucose high - Continue current diet management - Follow up appointment at [facility] scheduled for November 06 - Obtain A1c and thyroid panel 1-2 days before next appointment - Lab order provided to patient 1. Progress Reviewed gestational age at 19 weeks 4 days, heart rate of 162 bpm (normal). Patient beginning to feel movements described as tickling sensations. Planned frequent visits (every 2 weeks until 36 weeks, then weekly). 2. Instructed patient to monitor movements and report decreases immediately. 3. Testing Counseled on routine third-trimester labs per guidelines. Planned A1c and thyroid panel at next appointment. Discussed potential need for ultrasound or monitoring based on risk factors. 4. Preeclampsia Precaution Educated on preeclampsia signs: severe headache, vision changes, right upper quadrant pain, sudden swelling. Advised urgent reporting of symptoms and discussed blood pressure monitoring if high risk. 5. Labor Precautions Reviewed labor signs: regular contractions, pelvic pressure, back pain, bleeding, or fluid leakage. Instructed to seek immediate care for these symptoms. 6. Lifestyle and Delivery Preparation Reinforced vitamins, nutrition, and safe activity. Discussed plan, pain management, and . Advised on labor preparation (e.g., hospital bag) and expectations. 7. Psychosocial Support Assessed emotional well-being and offered resources for mental health or parenting support.
== END 2024-10-19 11:10 | disposition home or self-care (01) ==
LOC: HODSOBC 10:23
PROVIDERS: Supervising Provider Obstetrics & Gynecology; Visit Provider Obstetrics & Gynecology
DX: O09.522 Supervision of elderly multigravida, second trimester (principal); O09.892 Supervision of other high risk pregnancies, second trimester; O23.42 Unspecified infection of urinary tract in pregnancy, second trimester; O09.292 Supervision of pregnancy with other poor reproductive or obstetric history, second trimester; O34.219 Maternal care for unspecified type scar from previous cesarean delivery; O10.912 Unspecified pre-existing hypertension complicating pregnancy, second trimester; O24.112 Pre-existing type 2 diabetes mellitus, in pregnancy, second trimester; Z3A.19 19 weeks gestation of pregnancy; Z79.4 Long term (current) use of insulin
CPT/HCPCS: 99214; G0463

== ENCOUNTER 2024-11-11 16:51 | Emergency (ER) | payer MEDICAID, SELFPAY ==
[2024-11-11] VITALS (7 sets, daily range): BP systolic 129–146; BP diastolic 71–90; PULSE 90–100; RESP 16–99; TEMP 36.7–36.9; O2SAT 98–99; BMI 40.4
--- NOTE | 2024-11-11 18:46 | EDNOTE_ITS ---
ED Abdominal Pain RME/HPI General Chief Complaint: Abdominal Pain Stated complaint: RUQ ABD PAIN Time seen by provider: 11/11/24 18:46 Arrival date/time: 11/11/24 16:51 RME / HPI RME / HPI narrative: DR. CM MAIN ED EVALUATION: 33 y/o 23-week female with Hx of Type II DM and Gestational HTN presents to ED c/o RUQ abdominal pain x 3 days. Patient is . She is compliant with her Nifedipine, Metformin, and slow and fast-acting insulin. Patient still has her gall bladder and denies any history of gall stones. She has been medically cleared by OB. No other concerns or complaints expressed at this time. Related Data Previous Rx's ?Medication ?Instructions ?Recorded vits no.126-ferrous fum 0.126 - 28 tab PO EAN LY 30 days 07/19/24 28 mg iron-folic acid 800 mcg #60 tabs tablet (Classic ) insulin aspart U-100 100 unit/mL 15 unit (0.15 mL) sub cut TID 30 08/16/24 (3 mL) subcutaneous pen (Novolog days #15 mL FlexPen U-100 Insulin aspart) insulin glargine 100 unit/mL (3 40 unit (0.4 mL) subcu t BID 30 08/16/24 mL) subcutaneous pen (Basaglar days #24 mL KwikPen U-100 Insulin) labetalol 200 mg tablet 200 mg PO BID 30 days #60 ta bs 08/16/24 nifedipine 30 mg tablet,extended 30 mg PO QDAY #30 tab s 08/16/24 release 24 hr (Procardia XL) ondansetron 4 mg disintegrating 4 mg PO Q8H PRN nausea and 08/16/24 tablet vomiting #14 tabs insulin NPH isoph U-100 human 100 40 unit (0.4 mL) sub cut BID 30 09/17/24 unit/mL (3 mL) subcutaneous pen days #24 mL (Humulin N NPH U-100 Insulin KwikPen) cephalexin 500 mg capsule 1,000 mg (2 x 500 mg) PO BID 7 11/11/24 days #28 caps Allergies Allergy/AdvReac Type Severity Reaction Status Date / Time No Known Allergies Allergy Verified 11/11/24 17:05 Review of Systems Review of Systems Systems Reviewed: All systems reviewed, normal except as documented Past Medical History Past Medical History CARDIAC: Positive Hypertension (Gestational)) ENDOCRINE: Positive Diabetes Mellitus Type 2 ED Exam Narrative Physical exam: Generally patient is alert no obvious distress, heart regular rate and rhythm, lungs clear to auscultation ankle bilaterally abdomen is gravid with right upper quadrant abdominal tenderness without rebound. Course Quality Measures none Orders Category Date Time Status US gall bladder Stat Exams 11/11/24 18:51 Taken CBC Stat Lab 11/11/24 19:23 Completed CMP [Comprehensive Metabolic Panel] Stat Lab 11/11/24 19:23 Completed Lipase Stat Lab 11/11/24 19:23 Completed UA [Urinalysis] Stat Lab 11/11/24 19:38 Completed ALBUTEROL RT 0.5ml [Proventil Rt 0.5ml] Med 11/11/24 19:38 Discontinued 10 mg .ROUTE .STK-MED ONE Vital Signs Vital signs: Vital Signs Pulse Rate 100 11/11/24 16:09 Blood Pressure 137/86 H 11/11/24 16:09 Abdominal Pain MDM MDM Narrative MDM Narrative:: Scribe Attestation: Claudette Morales, am scribing for and in the presence of Dr. Cm. Provider Notation: Although this document has been carefully reviewed, there may still be some phonetic and other typographical errors. These errors are purely grammatical due to imperfections in the software program and should not be construed in any way to compromise the substance of the patient's medical care during this visit. Differential diagnosis: Appendicitis, cholecystitis, cholelithiasis, UTI, musculoskeletal pain There is no fever or leukocytosis. LFTs and lipase are normal. Gallbladder ultrasound shows no stones no common bile duct enlargement no wall thickening. Patient does have bacteriuria. Patient will be treated for such. She may use Tylenol for pain. She was already cleared by MEDICAL CLERICAL ASSISTANT prior to ER evaluation. At this time I doubt appendicitis is the diagnosis even though the appendix can migrate upwards in the face of the pain is very high up in the right upper quadrant of the abdomen. Patient data External records reviewed:: [facility] previous records (Reviewed prior ED records from 10/12/24. Patient was seen for Headache.) Clinical information provided by:: patient Social determinants that could affect healthcare access:: none Patient has the following chronic illnesses:: Type II DM How is presenting disease/condition affected by chronic disease/condition?: exacerbated by Evaluation data The following diagnostics were reviewed and interpreted by me:: lab results and radiology exam(s) Lab and/or radiology exams considered but not ordered:: None Interpretation Summary: RADIOLOGY Gall Bladder US: Pending official radiology report. Medications / Prescriptions Medications or Prescriptions considered but not ordered:: None Medication administrations:: Medication Administration History Discontinued Medications Albuterol (Albuterol Rt 2.5 Mg/0.5 Ml Nebu) Confirm Administered Dose 10 mg .ROUTE .STK-MED ONE Stop: 11/11/24 19:39 Last Admin: 11/11/24 19:52 Dose: Not Given Documented By: QUANG Non-Admin Reason: Override Medication See above if any. Consultations Consultation(s) initiated? (list below): No Diagnosis Differential diagnosis abdominal pain: abdominal pain, calculus of kidney, constipation, diverticulitis, gastroenteritis, pancreatitis, small bowel obstruction and other (Chlolelithiasis, Cholecystitis) Most likely diagnosis given after review of the tests above:: none Admission Indicated Admission indicated?: not indicated Explain why admission is indicated or not indicated:: Patient does not meet admission criteria. Admission Request Was there a request for admission?: No Disposition Plan Disposition Plan: Discharge Discharge Attestation Discharge Attestation: The patient and all family members were given an opportunity to ask questions and understood the discharge instructions. Discharge instructions specifically effects, indications for sooner follow up or return to the emergency department, and the expected course of current diagnosis. Patient condition: Stable Discharge Plan Plan Patient Disposition: HOME (Self Care) Prescriptions/Referrals Prescriptions/Med Rec: New cephalexin 500 mg capsule 1,000 mg PO BID 7 Days Qty: 28 0RF No Action Classic 28 mg iron- 800 mcg tablet 0.126 - 28 tab PO DAILY 30 Days Qty: 60 2RF insulin glargine [Basaglar KwikPen U-100 Insulin] 100 unit/mL (3 mL) insulin pen 40 unit subcut BID 30 Days Qty: 24 4RF insulin aspart U-100 [Novolog FlexPen U-100 Insulin] 100 unit/mL (3 mL) insulin pen 15 unit subcut TID 30 Days Qty: 15 2RF labetalol 200 mg tablet 200 mg PO BID 30 Days Qty: 60 4RF nifedipine [Procardia XL] 30 mg tablet extended release 24hr 30 mg PO QDAY Qty: 30 2RF ondansetron 4 mg tablet,disintegrating 4 mg PO Q8H PRN (Reason: nausea and vomiting) Qty: 14 0RF Humulin N NPH Insulin KwikPen 100 unit/mL (3 mL) insulin pen 40 unit subcut BID 30 Days Qty: 24 2RF Referrals: No Primary/Family,Physician [Primary Care Provider] - In 1 week Problem List Clinical Impression: , UTI in Patient/Caregiver Discharge Instructions Additional Instructions: Tylenol for pain. Take the antibiotic as prescribed. Follow-up with your MEDICAL CLERICAL ASSISTANT physician. Return to ER as needed or if condition worsens. Print Language: Mohawk Stand Alone Forms: Gisselle Award Info., Patient Portal Info Letter
--- NOTE | 2024-11-11 18:51 | XR_ITS ---
Examination: Abdomen sonogram, Limited Date and time of exam: November 11, 2024 at 1753 hrs. Indications: Right upper abdominal pain with nausea beginning 3 days ago Technique: Real-time benoit scale transabdominal sonographic images of the upper abdomen obtained. Findings: Normal gallbladder. Normal common bile duct 0.4 cm Pancreatic head 2.1 cm Liver 19.5 cm lobular contour fatty infiltration Normal hepatopedal portal venous flow. Patent IVC Impression: Normal gallbladder Primary hepatocellular disease
[2024-11-11 19:38] LABS: Basophils # (Auto) 0.0 Thou/mm3 (0.0-0.2); Basophils % (Auto) 0 % (0-2.5); Eosinophils # (Auto) 0.2 Thou/mm3 (0.0-0.5); Eosinophils % (Auto) 2 % (0-10); Hematocrit 32.6 % (36.0-46.0); Hemoglobin 11.0 g/dL (12.0-16.0); Immature Granulocytes Auto 0.13 Thou/mm3 (0.00-0.00); Lymphocytes # (Auto) 2.7 Thou/mm3 (1.0-4.8); Lymphocytes % (Auto) 28 % (10-50); Mean Corpuscular HGB Conc 33.7 g/dl (31.0-37.0); Mean Corpuscular Hemoglobin 29.6 pg (25.0-35.0); Mean Corpuscular Volume 88 fL (80-100); Monocytes # (Auto) 0.7 Thou/mm3 (0.0-0.8); Monocytes % (Auto) 8 % (0-12); Neutrophils # (Auto) 5.8 Thou/mm3 (1.8-7.7); Neutrophils % (Auto) 61 % (37-80); Nucleated Red Blood Cell # 0.00 Thou/mm3 (0.00-0.00); Nucleated Red Blood Cell % 0 /100 WBC (0); Platelet Count 239 Thou/mm3 (140-440); RDW Standard Deviation 44.9 fL (36.4-46.3); Red Blood Count 3.72 Miln/mm3 (4.00-5.20); White Blood Count 9.6 Thou/mm3 (3.6-11.0)
[2024-11-11 19:44] LABS: Collection Type, Urine Voided
[2024-11-11 20:05] LABS: Bacteria,Urine 3+; Bilirubin,Urine Negative (Negative); Blood,Urine 3+ (Negative); Calcium Oxalate Crystals,Urine 2+; Clarity,Urine Clear (Clear/Hazy); Color,Urine Lt-Yellow (Lt Yel-Yel); Glucose, Urine 2+ (Negative); Ketones,Urine 1+ (Negative); Leukocyte Esterase,Urine Negative (Negative); Nitrite,Urine Negative (Negative); PH,Urine 6.0 (5.0-7.0); Protein,Urine 1+ (Neg - Trace); RBC,Urine 139 /hpf (0-3); Specific Gravity,Urine 1.030 (1.001-1.035); Squamous Epithelial Cell,Urine 2 /hpf (0-5); Urobilinogen,Urine Negative mg/dL (0.0-1.0); WBC,Urine 1 /hpf (0-5)
[2024-11-11 20:12] LABS: Alanine Aminotransferase 11 U/L (10-49); Albumin, Serum 4.0 gm/dL (3.5-5.0); Albumin/Globulin Ratio 1.7 (1.2-2.2); Alkaline Phosphatase 52 U/L (46-116); Anion Gap 12 (7-16); Aspartate Amino Transferase 13 U/L (0-34); BUN/Creatinine Ratio 10 Ratio (12-20); Bilirubin,Total 0.2 mg/dL (0.3-1.2); Blood Urea Nitrogen 6 mg/dL (9-23); Calcium 9.9 mg/dL (8.3-10.6); Calcium (Corrected) 9.9 mg/dL (8.5-10.1); Carbon Dioxide 20.7 mMol/L (20.0-31.0); Chloride 107 mMol/L (98-107); Creatinine (Component) 0.6 mg/dL (0.6-1.3); Estimated Creatinine Clearance 161.7 mL/min (>60); Globulin 2.4 gm/dL (2.3-3.5); Glucose 116 mg/dL (74-106); Lipase 37 U/L (12-53); Osmolality,Calculated 278 (275-295); Potassium 3.8 mMol/L (3.4-5.1); Sodium 140 mMol/L (136-145); Total Protein 6.4 gm/dL (5.7-8.2); eGFR > 60 See Note
== END 2024-11-11 21:20 | disposition home or self-care (01) ==
LOC: SERX 18:31
PROVIDERS: Emergency Provider Emergency Medicine
DX: O23.42 Unspecified infection of urinary tract in pregnancy, second trimester (principal); N39.0 Urinary tract infection, site not specified; O99.891 Other specified diseases and conditions complicating pregnancy; R10.11 Right upper quadrant pain; Z3A.23 23 weeks gestation of pregnancy
CPT/HCPCS: 36415; 59025; 76705; 80053; 81001; 83690; 85025; 99283

== ENCOUNTER 2024-11-21 08:26 | Outpatient (AMB) | payer MEDICAID, SELFPAY ==
[2024-11-21 08:42] VITALS: BP 126/85; PULSE 101; RESP 20; TEMP 36.5; O2SAT 98; BMI 39.8
--- NOTE | 2024-11-21 08:42 | AMB.OBVISIT ---
Vital Signs 11/21/24 08:42 Height 1.65 m Height Method Stated Weight 108.522 kg Weight Measurement Method Standing Scale BMI 39.8 BP 126/85 H Blood Pressure Source Automatic Cuff Blood Pressure Location Left Upper Arm Position Sitting Respiration 20 Pulse 101 H Pulse Source Monitor Temp 97.7 F Temp Source Oral Pulse Oximetry (%) 98 Oxygen Delivery Method Room Air Allergies/Home Meds Allergies & Medications Allergies No Known Allergies Allergy (Verified 11/21/24 08:43) Medication Reconciliation vits no.126-ferrous fum 28 mg iron-folic acid 800 mcg tablet (Classic ) 0.126 - 28 tab PO DAILY 30 days #60 tabs 07/19/24 [Rx Confirmed 11/21/24] insulin aspart U-100 100 unit/mL (3 mL) subcutaneous pen (Novolog FlexPen U-100 Insulin aspart) 15 unit (0.15 mL) subcut TID 30 days #15 mL 08/16/24 [Rx Confirmed 11/21/24] insulin glargine 100 unit/mL (3 mL) subcutaneous pen (Basaglar KwikPen U-100 Insulin) 40 unit (0.4 mL) subcut BID 30 days #24 mL 08/16/24 [Rx Confirmed 11/21/24] labetalol 200 mg tablet 200 mg PO BID 30 days #60 tabs 08/16/24 [Rx Confirmed 11/21/24] ondansetron 4 mg disintegrating tablet 4 mg PO Q8H PRN nausea and vomiting #14 tabs 08/16/24 [Rx Confirmed 11/21/24] insulin NPH isoph U-100 human 100 unit/mL (3 mL) subcutaneous pen (Humulin N NPH U-100 Insulin KwikPen) 40 unit (0.4 mL) subcut BID 30 days #24 mL 09/17/24 [Rx Confirmed 11/21/24] blood pressure test kit-medium #1 ea 11/14/24 [Rx Confirmed 11/21/24] labetalol 400 mg tablet 400 mg PO BID 30 days #60 tabs 11/14/24 [Rx Confirmed 11/21/24] Intake Visit Data Collection New Patient or Established: Established Patient (seen at [facility] within 3 years) Reason for Visit:: CARE Seen by Clinical Staff ONLY (RN/MA): 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 1. Little interest or pleasure in doing things: not at all 2. Feeling down, depressed, or hopeless: not at all Total score: 0 PHQ-9 3. Trouble falling or staying asleep, or sleeping too much: Not at all 4. Feeling tired or having little energy: Not at all 5. Poor appetite or overeating: Not at all 6. Feeling bad about yourself - or that you are a failure or have let yourself or your family down: Not at all 7. Trouble concentrating on things, such as reading the newspaper or watching television: Not at all 8. Moving or speaking so slowly that other people could have noticed? - Or the opposite - being so fidgety or restless that you have been moving around a lot more than usual: not at all 9. Thoughts that you would be better off or of hurting yourself in some way: Not at all Total score: 0 Source: Developed by Drs. Duy Norton, Namita Maciel, Ashok Walker and colleagues, with an educational gabrielle from [employer]. 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 Previous x 1. Patient is type II diabetic. She takes metformin thousand and NovoLog 38 units and then she also takes Levemir 32 units. Patient stopped taking her Ozempic 2 weeks ago. She has a history of irregular menses. Patient had a 6-week ultrasound July 16, 2024 and this dated her March 13, 2025. History of chronic hypertension. Patient takes lisinopril 2.5 daily. She denies any SAB complaints at this time. Denies any nausea and vomiting. The patient is taking vitamins. So I discussed SAB precautions with patient. Consulted with OB regarding medication for chronic hypertension. Patient will be changed to labetalol 200 mg twice daily and that was ordered to pharmacy. I also ordered prenatals. Discussed diet and glucometer testing. SAB precautions reviewed with patient. OB panel with CMP hCG and TSH ordered. And I scheduled patient for MFM referral due to the diabetes and hypertension advanced maternal age. SAB precautions reviewed and patient return in 4 weeks with OB 08/16/24 <del>?</del> 10w 3d 100.754 kg 134/88 30yo @12w5d, severe hyperemesis (recent 5-day admission), low K+, chronic HTN on labetalol/Procardia, bipolar disorder on lamotrigine, insomnia. Plan: continue meds (Phenergan, Zofran, Reglan, Protonix, prednisone), refill prescriptions, labs for genetic testing, welfare note, check FHR by [facility]son when room available. @10w5d, T2DM on Basaglar/NovoLog, chronic HTN on labetalol. Plan: initial labs incl. NIPT, SMA, CF; vitamins; MFM/nutrition referral if indicated; routine care. 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 Reports nausea, no CTX/LOF/VB, denies SHARMA/VC/RUQ pain. Active lifestyle but difficulty with dietary adherence noted. FHR visualized with motion, bpm not recorded. Labs: UPCR 563, glucose post-meal 219, genetic labs pending from 01/17. Insulin: Basaglar 40u AM/8u PM, NovoLog 15u TID. Plan: Insulin adjusted to Basaglar 40u BID, NovoLog 20u TID (total daily dose 140u). Patient educated on diabetic diet; food list provided. Encouraged postprandial activity for glucose control. Continue labetalol. Monitor for preeclampsia; preeclampsia panel pending. Await genetic results and MFM referral. Follow up in 2 weeks. 09/17/24 <del>?</del> 15w 0d 105.687 kg 121/81 absent 135 at 15w0d with T2DM and HTN. Reports difficulty with diet adherence and recent postprandial glucose spikes up to 247. Currently on Basaglar 40 BID and NovoLog 20 TID, total 140 units/day. CGM in place. [facility] recommends switch to NPH. Also reports pedal edema, likely multifactorial. NIPT neg, male fetus. Plan: change Basaglar to NPH per MFM, send script, continue CGM, f/u 4wks, await U/S report. On Call Pharmacy Technician on glucose targets, diet, and edema. Continue routine care 11/21/24 <del>?</del> 24w 2d 108.522 kg 126/85 absent cephalic 25 142 active - Blood glucose control: - Highest recent blood glucose was 163, which is lower than previous readings - Patient reports blood sugars have been okay and more or less the same as last visit - Current diabetes management: - Insulin regimen: 44 units of long-acting insulin morning and night (88 units total) - 36 units of fast-acting insulin (Lyspro) split into 12 units three times daily - Continuing metformin as prescribed - Continue current insulin regimen: 44 units slow-acting insulin morning and night, 36 units fast-acting insulin split into 12-12-12 - Continue metformin as prescribed - Start aspirin 81mg daily, [id number] if necessary - Perform A1c test - Follow up in 4 weeks - Continue management with [facility] for diabetes care - Continue current insulin regimen: 44 units slow-acting insulin morning and night, 36 units fast-acting insulin split into 12-12-12 - Continue metformin as prescribed - Start aspirin 81mg daily, [id number] if necessary - Perform A1c test - Follow up in 4 weeks - Continue management with [facility] for diabetes care. TAPAN Calculator Estimated Delivery Date Method Current WG Current Estimate 03/11/25 Ultrasound #2 24w 2d Other Estimates 01/12/25 LMP (Uncertain) 32w 4d Notes Visit Date: 11/21/24 Last Updated by: Adams Cohen MD - Ultrasound (performed last week, finalized on 11/21/2024)/[facility]: - weight: 579 grams (1 pound 4 ounces) - Gestational age: Consistent with dates - Anatomy survey: Overall normal study Visit Date: 07/19/24 Last Updated by: Jackelyn June CNM 33 yo . irregular menses, sono: 07/16/24: IUP viable, 6 week, EDC 03/13/25 Office Procedures OB Clinic LOC & Office Proc's Nursing/Assessment Patient Status: Established Patient OB Clinic Nursing Assessment: Medication Reconciliation, Update PMH in EMR and Vital Signs OB Clinic Coordination of Care: AMA, Complex Care and Chronic Disease 1-5, Consent,records obtained, informed consent, Education Simp Pt/Fam, Lab and Imaging orders, Results/Orders obtained and Staff clarify orders Established Patient Charge Established Patient Point Assignment: 125 Established Patient Point Charge: EP Level 4 (120-155) Assessment & Plan Diagnosis / Problem List (1) Previous section: Status: Acute (2) Chronic hypertension affecting : Status: Acute (3) Diabetes 1.5, managed as type 2: Status: Acute (4) Advanced maternal age (AMA) in : Status: Acute
== END 2024-11-21 08:55 | disposition home or self-care (01) ==
LOC: HODSOBC 08:26
PROVIDERS: Supervising Provider Obstetrics & Gynecology; Visit Provider Obstetrics & Gynecology
DX: O09.522 Supervision of elderly multigravida, second trimester (principal); O09.892 Supervision of other high risk pregnancies, second trimester; O10.912 Unspecified pre-existing hypertension complicating pregnancy, second trimester; O24.112 Pre-existing type 2 diabetes mellitus, in pregnancy, second trimester; O09.292 Supervision of pregnancy with other poor reproductive or obstetric history, second trimester; O34.219 Maternal care for unspecified type scar from previous cesarean delivery; Z3A.24 24 weeks gestation of pregnancy; Z79.4 Long term (current) use of insulin; Z79.899 Other long term (current) drug therapy
CPT/HCPCS: 99214; G0463

== ENCOUNTER 2024-12-24 10:48 | Outpatient (AMB) | payer MEDICAID, SELFPAY ==
[2024-12-24 10:55] VITALS: BP 126/84; PULSE 97; RESP 18; TEMP 36.4; O2SAT 98; BMI 41.2
--- NOTE | 2024-12-24 10:55 | OBCLNT_ITS ---
Vital Signs 12/24/24 10:55 Height 1.65 m Height Method Stated Weight 112.264 kg Weight Measurement Method Standing Scale BMI 41.2 BP 126/84 Blood Pressure Source Automatic Cuff Blood Pressure Location Left Upper Arm Position Sitting Respiration 18 Pulse 97 Pulse Source Monitor Temp 97.5 F Temp Source Oral Pulse Oximetry (%) 98 Oxygen Delivery Method Room Air Allergies/Home Meds Allergies & Medications Allergies labetalol Allergy (Severe, Verified 01/16/25 09:01) Numbness Medication Reconciliation vits no.126-ferrous fum 28 mg iron-folic acid 800 mcg tablet (Classic ) 0.126 - 28 tab PO DAILY 30 days #60 tabs 07/19/24 [Rx Confirmed 01/16/25] blood pressure test kit-medium #1 ea 11/14/24 [Rx Confirmed 01/16/25] insulin aspart U-100 100 unit/mL (3 mL) subcutaneous pen (Novolog FlexPen U-100 Insulin aspart) 46 unit subcut TID 01/03/25 [History Confirmed 01/16/25] insulin NPH isoph U-100 human 100 unit/mL (3 mL) subcutaneous pen (Humulin N NPH U-100 Insulin KwikPen) 50 unit subcut BID 01/06/25 [History Confirmed 01/16/25] metformin 1,000 mg tablet 1,000 mg PO BID 01/06/25 [History Confirmed 01/16/25] nifedipine 30 mg tablet,extended release 30 mg PO QDAY 30 days #30 tabs 01/10/25 [Rx Confirmed 01/16/25] Intake Visit Data Collection New Patient or Established: Established Patient (seen at [facility] within 3 years) Reason for Visit:: CARE Seen by Clinical Staff ONLY (RN/MA): No Audit Clerk Required: No Do You Feel Safe at Home: Yes Authorities Contacted: N/A PCP or OBGYN visit in last 3 months: Yes Hx Now: Yes Are you currently on any form of Control: No Pain Present Currently: No Pain Scale Used: Mccarty-Ohara/Numerical Pain scale:: 0 Smoking Status Smoking Status: Never smoker Questionnaires Covid-19 Vaccine Questionnaire Has patient been vacinated for Covid-19 Have you been vacinated for Covid-19: No PHQ-9 PHQ-2 Over the last 2 weeks, how often have you been bothered by any of the following problems? 1. Little interest or pleasure in doing things: not at all 2. Feeling down, depressed, or hopeless: not at all Total score: 0 PHQ-9 3. Trouble falling or staying asleep, or sleeping too much: Not at all 4. Feeling tired or having little energy: Not at all 5. Poor appetite or overeating: Not at all 6. Feeling bad about yourself - or that you are a failure or have let yourself or your family down: Not at all 7. Trouble concentrating on things, such as reading the newspaper or watching television: Not at all 8. Moving or speaking so slowly that other people could have noticed? - Or the opposite - being so fidgety or restless that you have been moving around a lot more than usual: not at all 9. Thoughts that you would be better off or of hurting yourself in some way: Not at all Total score: 0 Source: Developed by Drs. Duy Norton, Namita Maciel, Ashok Walker and colleagues, with an educational gabrielle from [employer]. 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 Previous C- section x 1. Patient is type II diabetic. She takes metformin thousand and NovoLog 38 units and then she also takes Levemir 32 units. Patient stopped taking her Ozempic 2 weeks ago. She has a history of irregular menses. Patient had a 6-week ultrasound July 16, 2024 and this dated her March 13, 2025. History of chronic hypertension. Patient takes lisinopril 2.5 daily. She denies any SAB complaints at this time. Denies any nausea and vomiting. The patient is taking vitamins. So I discussed SAB precautions with patient. Consulted with OB regarding medication for chronic hypertension. Patient will be changed to labetalol 200 mg twice daily and that was ordered to pharmacy. I also ordered prenatals. Discussed diet and glucometer testing. SAB precautions reviewed with patient. OB panel with CMP hCG and TSH ordered. And I scheduled patient for MFM referral due to the diabetes and hypertension advanced maternal age. SAB precautions reviewed and patient return in 4 weeks with OB 08/16/24 -?-?-?-?-?-?-?-?-?-?-?-?- 10w 3d 100.754 kg 134/88 30yo @12w5d, severe hyperemesis (recent 5-day admission), low K+, chronic HTN on labetalol/Procardia, bipolar disorder on lamotrigine, insomnia. Plan: continue meds (Phenergan, Zofran, Reglan, Protonix, prednisone), refill prescriptions, labs for genetic testing, welfare note, check FHR by sono when room available. @10w5d, T2DM on Basag lar/NovoLog, chronic HTN on labetalol. Plan: initial labs incl. NIPT, SMA, CF; vitamins; MFM/nutrition referral if indicated; routine care. 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 Reports nausea, no CTX/LOF/VB, denies SHARMA/VC/RUQ pain. Active lifestyle but difficulty with dietary adherence noted. FHR visualized with motion, bpm not recorded. Labs: UPCR 563, glucose post-meal 219, g enetic labs pending from 01/17. Insulin: Basaglar 40u AM/8u PM, NovoLog 15u TID. Plan: Insulin adjusted to Basaglar 40u BID, NovoLog 20u TID (total daily dose 140u). Patient educated on diabetic diet; food list provided. Encouraged postprandial activity for glucose control. Continue labetalol. Monitor for preeclampsia; preeclampsia panel pending. Await genetic results and MFM referral. Follow up in 2 weeks. 09/17/24 -?-?-?-?-?-?-?-?-?-?-?-?- 15w 0d 105.687 kg 121/81 absent 135 at 15w0d with T2DM and HTN. Reports difficulty with diet adherence and recent postprandial glucose spikes up to 247. Currently on Basaglar 40 BID and NovoLog 20 TID, total 140 units/day. CGM in place. [facility] recommends switch to NPH. Also reports pedal edema, likely multifactorial. NIPT neg, male fetus. Plan: change Basaglar to NPH per MFM, send script, continue CGM, f/u 4wks, await U/S report. 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 Continue routine care 10/19/24 -?-?-?-?-?-?-?-?-?-?-?-?- 19w 4d 109.032 kg 124/84 absent cephalic 155 active - Gladis Costello is presenting for a visit at 19 weeks and 4 days gestation with a past medical history of type 2 diabetes mellitus and chronic hypertension. - She reports her blood sugar numbers ar e getting better since her insulin was changed to NPH per maternal- medicine. - Her highest recent blood sugar was 1 63 today. - She now experiences episodes of low blood sugar. - She reports adherence to dietary modif ications. - She has started feeling some mov ements described as a little bit like tickling. - She has an upcoming appointment at [facility] on November 06. - Continue current insulin regimen with NPH as prescribed by MFM - Patient to adjust insulin dosing: redu ce by 2 units if glucose low, increase by 2-3 units if glucose high - Continue current diet management - Follow up appointment at [facility] scheduled for November 06 - Obtain A1c and thyroid panel 1-2 days before next appointment - Lab order provided to patient 11/21/24 -?-?-?-?-?-?-?-?-?-?-?-?- 24w 2d 108.522 kg 126/85 absent cephalic 25 14 2 active - Blood glucose control: - Highest recent blood glucose was 163 , which is lower than previous readings - Patient reports blood sugars have be en okay and more or less the same as last visit - Current diabetes management: - Insulin regimen: 44 units of long-ac ting insulin morning and night (88 units total) - 36 units of fast-acting insulin (Adelaida pro) split into 12 units three times daily - Continuing metformin as prescribed - Continue current insulin regimen: 44 units slow-acting insulin morning and night, 36 units fast-acting insulin split into 12-1212 - Continue metformin as prescribed - Start aspirin 81mg daily, owea-shm-rmh nter if necessary - Perform A1c test - Follow up in 4 weeks - Continue management with [facility] for diabetes care - Continue current insulin r egimen: 44 units slow-acting insulin morning and night, 36 units fast-acting insulin split into 1212 - Continue metformin as prescribed - Start aspirin 81mg daily, egkk-xyz-yaj nter if necessary - Perform A1c test - Follow up in 4 weeks - Continue management with [facility] for diabetes care. 12/24/24 -?-?-?-?-?-?-?-?-?-?-?-?- 29w 0d 112.264 kg 126/84 absent cephalic 29 14 5 active - She has type 2 diabetes mellitus with suboptimal glycemic control. - Reports glucose levels as high as 24 7 mg/dL, with post-meal readings of 230- 250 mg/dL. - States the more insulin they gave m e, it's like the bigger the numbers are. - Recently tried returning to original lower insulin doses (30-something units of NPH) on her own and reports these resulted in normal glucose levels. - [facility] has been co-managing her insulin and diabetes, with recent increases to 88 units of long-acting lispro and 36 units TID of Humalog. - Reports consistent adherence to diet w ith good portion control. - Notes decreased movement over e past few days compared to usual activity levels. - Baby remains active overall but patien t describes less movement than previously experienced. - Reduce insulin dosage to previous levels for 5-7 days to assess glycemic control - Consider 24-hour hospital admission fo r controlled insulin adjustment if lower dosage is ineffective - Follow up in 2 weeks with diabetic log s - Continue with scheduled repeat e chocardiogram in 4-6 weeks - Await call from hospital for anesthesi a consultation - Continue twice weekly monitoring ( and ) 01/16/25 -?-?-?-?-?-?-?-?-?-?-?-?- 32w 2d 116.176 kg 135/89 absent cephalic 32 14 5 active - She has a past medical history of Type 2 diabetes mellitus and hypertension in . - Patient reports no contractions or oth er obstetric issues at this visit. - Blood sugar control has been generally acceptable with one elevated reading last night reaching over 160 mg/dL after eating pizza. - Current blood sugar reported as 80- something mg/dL at time of visit. - Patient was previously transferred to [facility] for evaluation of possible rupture of membranes, which was ruled out. - She denies any current concerns and reports feeling okay overall. Plan - scheduled at 37 weeks due to blood pressure on 02/21/2025@07:30 AM - Hospital date to be booked and communi cated to patient TAPAN Calculator Estimated Delivery Date Method Current WG Current Estimate 03/11/25 Ultrasound #2 33w 5d Other Estimates 01/12/25 LMP (Uncertain) 42w 0d Notes Visit Date: 01/16/25 Last Updated by: Aadms Cohen MD - Date: 01/14/2025 - [facility] ultrasound: Single living fetus at 32 weeks 0 days gestation, estimated weight 2183 grams (83rd percentile), amniotic fluid within normal limits, anatomy and visualized structures normal, placenta anterior with no previa, vertex presentation - Biophysical profile: 8 out of 8 Visit Date: 11/21/24 Last Updated by: Adams Cohen MD - Ultrasound (performed last week, finalized on 11/21/2024)/[facility]: - weight: 579 grams (1 pound 4 ounces) - Gestational age: Consistent with dates - Anatomy survey: Overall normal study Visit Date: 10/19/24 Last Updated by: Adams Cohen MD - Type 2 Diabetes Mellitus - Chronic hypertension - (19 weeks 4 days gestation) Visit Date: 07/19/24 Last Updated by: Jackelyn June CNM 33 yo . irregular menses, sono: 07/16/24: IUP viable, 6 week, EDC 03/13/25 Office Procedures OBC Clinic LOC & Office Proc's Nursing/Assessment Patient Status: Established Patient OB Clinic Nursing Assessment: Medication Reconciliation, Update PMH in EMR and Vital Signs OB Clinic Coordination of Care: AMA, Complex Care and Chronic Disease 1-5, Consent,records obtained, informed consent, Education Simp Pt/Fam, 1 Ins Authorization, Lab and Imaging orders, Results/Orders obtained and Staff clarify orders Special Needs: Heart tones Established Patient Charge Established Patient Point Assignment: 170 Established Patient Point Charge: EP Level 5 (160-above) Assessment & Plan Diagnosis / Problem List (1) Chronic hypertension affecting : Status: Acute (2) Diabetes 1.5, managed as type 2: Status: Acute Plan Problem List - , third trimester - Type 2 Diabetes Mellitus with suboptimal glycemic control - Breech presentation of fetus Assessment 3 para 1 at 29 weeks 0 days gestation with pre-existing type 2 diabetes mellitus and suboptimal glycemic control. Recent MFM ultrasound at 26 weeks 2 days showed a single living fetus in breech presentation with estimated weight of 966 grams (54th percentile) and normal amniotic fluid. anatomy review revealed suboptimal views of the heart, kidney, and eye. echocardiogram was limited due to poor acoustic windows. Patient reports elevated blood glucose levels, with readings as high as 247 mg/dL, despite increased insulin dosage. Current regimen includes 88 units of long-acting lispro and 36 units TID of Humalog. Patient notes decreased movement in recent days, though this is likely due to limited space as the fetus grows. heart rate auscultated at 156 bpm. Plan - Reduce insulin dosage to previous levels for 5-7 days to assess glycemic control - Consider 24-hour hospital admission for controlled insulin adjustment if lower dosage is ineffective - Follow up in 2 weeks with diabetic logs - Continue with scheduled repeat echocardiogram in 4-6 weeks - Await call from hospital for anesthesia consultation - Continue twice weekly monitoring (Mondays and ) 1. Progress Reviewed gestational age (29 weeks 0 days), growth (estimated weight 966 grams, 54th percentile), and heart rate (156 bpm, normal). Planned frequent visits (every 2 weeks until 36 weeks, then weekly). 2. Instructed patient to monitor movements and report decreases immediately. 3. Testing Counseled on routine third-trimester labs per guidelines. Discussed potential need for ultrasound or monitoring based on risk factors. 4. Preeclampsia Precaution Educated on preeclampsia signs: severe headache, vision changes, right upper quadrant pain, sudden swelling. Advised urgent reporting of symptoms and discussed blood pressure monitoring if high risk. 5. Labor Precautions Reviewed labor signs: regular contractions, pelvic pressure, back pain, bleeding, or fluid leakage. Instructed to seek immediate care for these symptoms. 6. Lifestyle and Delivery Preparation Reinforced vitamins, nutrition, and safe activity. Discussed plan, pain management, and . Advised on labor preparation (e.g., hospital bag) and expectations. 7. Psychosocial Support Assessed emotional well-being and offered resources for mental health or parenting support.
== END 2024-12-24 11:08 | disposition home or self-care (01) ==
LOC: HODSOBC 10:48
PROVIDERS: Supervising Provider Obstetrics & Gynecology; Visit Provider Obstetrics & Gynecology
DX: O09.893 Supervision of other high risk pregnancies, third trimester (principal); O09.523 Supervision of elderly multigravida, third trimester; O24.113 Pre-existing type 2 diabetes mellitus, in pregnancy, third trimester; O10.913 Unspecified pre-existing hypertension complicating pregnancy, third trimester; O32.1XX0 Maternal care for breech presentation, not applicable or unspecified; Z3A.29 29 weeks gestation of pregnancy; Z79.4 Long term (current) use of insulin
CPT/HCPCS: 99215; G0463

== ENCOUNTER 2025-01-01 15:17 | Outpatient (CLI) | payer MEDICAID, SELFPAY ==
[2025-01-01] VITALS (39 sets, daily range): BP systolic 132–161; BP diastolic 62–91; PULSE 83–96; RESP 18–98; TEMP 37.2; O2SAT 98–100; BMI 41.8
--- NOTE | 2025-01-01 15:57 | XR_ITS ---
Examination: Biophysical profile, ultrasound Date and time of exam: January 01, 2025, 1633 hours INDICATIONS: Decreased movement today Technique: Multiple transabdominal sonographic images of the pelvis abdomen obtained. Attention is directed to the breathing movement, gross body movement, amniotic fluid volume and tone. Findings: Amniotic fluid index 11.1 cm Total biophysical profile is 8 of 8. breathing movement is 2. Gross body movement is 2. tone is 2. Qualitative amniotic fluid volume is 2 Impression: Biophysical profile is 8 of 8.
--- NOTE | 2025-01-01 15:57 | XR_ITS ---
Examination: Complete OB ultrasound greater than 14 weeks Date and time of exam: January 01, 2025, 1620 hours INDICATIONS: Decreased movement today Findings: Viable intrauterine single fetus with single amniotic sac presentation breech Cardiac motion 137 bpm Placenta anterior grade 2 Medical cord insertion 3 vessels seen Amniotic fluid index 11.1 cm spine maternal right Cervix 3.2 cm Ovaries obscured by bowel gas. Composite estimated gestational age based on BPD, head circumference, abdominal circumference, femur length is 31 weeks 5 days Estimated weight 1820 g. Survey of intracranial anatomy, spinal anatomy, abdominal anatomy, four-chamber heart performed with no abnormalities identified. Impression: Viable intrauterine gestation in breech presentation.
[2025-01-01 16:59] LABS: Basophils # (Auto) 0.0 Thou/mm3 (0.0-0.2); Basophils % (Auto) 0 % (0-2.5); Eosinophils # (Auto) 0.3 Thou/mm3 (0.0-0.5); Eosinophils % (Auto) 3 % (0-10); Hematocrit 33.5 % (36.0-46.0); Hemoglobin 11.4 g/dL (12.0-16.0); Immature Granulocytes Auto 0.06 Thou/mm3 (0.00-0.00); Lymphocytes # (Auto) 2.8 Thou/mm3 (1.0-4.8); Lymphocytes % (Auto) 29 % (10-50); Mean Corpuscular HGB Conc 34.0 g/dl (31.0-37.0); Mean Corpuscular Hemoglobin 29.2 pg (25.0-35.0); Mean Corpuscular Volume 86 fL (80-100); Monocytes # (Auto) 0.8 Thou/mm3 (0.0-0.8); Monocytes % (Auto) 8 % (0-12); Neutrophils # (Auto) 5.8 Thou/mm3 (1.8-7.7); Neutrophils % (Auto) 59 % (37-80); Nucleated Red Blood Cell # 0.00 Thou/mm3 (0.00-0.00); Nucleated Red Blood Cell % 0 /100 WBC (0); Platelet Count 198 Thou/mm3 (140-440); RDW Standard Deviation 43.6 fL (36.4-46.3); Red Blood Count 3.91 Miln/mm3 (4.00-5.20); White Blood Count 9.7 Thou/mm3 (3.6-11.0)
[2025-01-01 17:18] LABS: Alanine Aminotransferase 11 U/L (10-49); Albumin, Serum 3.8 gm/dL (3.5-5.0); Albumin/Globulin Ratio 1.9 (1.2-2.2); Alkaline Phosphatase 68 U/L (46-116); Anion Gap 13 (7-16); Aspartate Amino Transferase 18 U/L (0-34); BUN/Creatinine Ratio 14 Ratio (12-20); Bilirubin,Total 0.2 mg/dL (0.3-1.2); Blood Urea Nitrogen 7 mg/dL (9-23); Calcium 9.0 mg/dL (8.3-10.6); Calcium (Corrected) 9.2 mg/dL (8.5-10.1); Carbon Dioxide 19.2 mMol/L (20.0-31.0); Chloride 108 mMol/L (98-107); Creatinine (Component) 0.5 mg/dL (0.6-1.3); Estimated Creatinine Clearance 196.1 mL/min (>60); Globulin 2.0 gm/dL (2.3-3.5); Glucose 100 mg/dL (74-106); LDH (Lactate Dehydrogenase) 166 U/L (120-246); Osmolality,Calculated 277 (275-295); Potassium 3.4 mMol/L (3.4-5.1); Sodium 140 mMol/L (136-145); Total Protein 5.8 gm/dL (5.7-8.2); Uric Acid 6.0 mg/dL (3.1-7.8); eGFR > 60 See Note
[2025-01-01 17:19] LABS: Fibrinogen 423 mg/dL (175-375); INR 1.0 (0.9-1.3); Partial Thromboplastin Time 28.7 Seconds (22.0-36.0); Prothrombin Time 11.0 Seconds (9.0-12.2)
--- NOTE | 2025-01-01 18:03 | PC.NURSE ---
1800 discharge instructions reviewed, labor precautions, kick counts reviewed, copy given, pt agrees/understands.
== END 2025-01-01 18:00 | disposition home or self-care (01) ==
LOC: S4S1 15:17 → S4SX 15:18
PROVIDERS: Referring Provider Obstetrics & Gynecology; Visit Provider Obstetrics & Gynecology
DX: O36.8130 Decreased fetal movements, third trimester, not applicable or unspecified (principal); O12.03 Gestational edema, third trimester; Z3A.31 31 weeks gestation of pregnancy
CPT/HCPCS: 36415; 59025; 76805; 76819; 80053; 83615; 84550; 85025; 85384; 85610; 85730

== ENCOUNTER 2025-01-03 08:28 | Observation (INO) | payer MEDICAID, SELFPAY ==
[2025-01-03] VITALS (40 sets, daily range): BP systolic 129–158; BP diastolic 75–96; PULSE 81–95; RESP 18–98; TEMP 36.7; O2SAT 97–99; BMI 42.0
--- NOTE | 2025-01-03 08:38 | XR_ITS ---
Examination: OB Transvaginal ultrasound of the pelvis, limited Technique: Transvaginal sonographic images pelvis performed using benoit scale imaging Exam date and time: January 03, 2025, 0937 hours INDICATIONS: Pelvic pressure and vaginal bleeding onset today. FINDINGS: Cervix 5.2 cm closed IMPRESSION: Cervix 5.2 cm closed.
[2025-01-03 09:04] LABS: Collection Type, Urine Clean Catch
[2025-01-03 09:15] LABS: Bacteria,Urine Rare; Bilirubin,Urine Negative (Negative); Blood,Urine 2+ (Negative); Clarity,Urine Clear (Clear/Hazy); Color,Urine Yellow (Lt Yel-Yel); Glucose, Urine Trace (Negative); Ketones,Urine 2+ (Negative); Leukocyte Esterase,Urine Negative (Negative); Nitrite,Urine Negative (Negative); PH,Urine 5.5 (5.0-7.0); Protein,Urine 1+ (Neg - Trace); RBC,Urine 2 /hpf (0-3); Specific Gravity,Urine 1.024 (1.001-1.035); Squamous Epithelial Cell,Urine 5 /hpf (0-5); Urobilinogen,Urine Negative mg/dL (0.0-1.0); WBC,Urine 5 /hpf (0-5)
--- NOTE | 2025-01-03 10:43 | XR_ITS ---
Examination: Complete OB ultrasound greater than 14 weeks Date and time of exam: January 03, 2025, 0920 hours INDICATIONS: Vaginal bleeding and pelvic pressure today. Findings: Viable intrauterine single fetus with single amniotic sac presentation breech spine maternal right Cardiac motion 141 bpm Placenta anterior grade 2 Umbilical cord insertion seen Amniotic fluid index 12.0 cm Cervix 3.2 cm Ovaries obscured by bowel gas. Composite estimated gestational age based on BPD, head circumference, abdominal circumference, femur length is 31 weeks 3 days Estimated weight 1711.6 g. Survey of intracranial anatomy, spinal anatomy, abdominal anatomy, four-chamber heart performed with no abnormalities identified. Impression: Viable intrauterine gestation in breech presentation.
== END 2025-01-03 12:05 | disposition home or self-care (01) ==
PROVIDERS: Admitting Provider Obstetrics & Gynecology; Visit Provider Obstetrics & Gynecology
DX: O26.853 Spotting complicating pregnancy, third trimester (principal); O26.893 Other specified pregnancy related conditions, third trimester; R10.20 Pelvic and perineal pain unspecified side; M54.50 Low back pain, unspecified; O32.1XX0 Maternal care for breech presentation, not applicable or unspecified; Z3A.31 31 weeks gestation of pregnancy
CPT/HCPCS: 59025; 59899; 76805; 76817; 81001

== ENCOUNTER 2025-01-06 00:24 | Observation (INO) | payer MEDICAID, SELFPAY ==
[2025-01-06] VITALS (133 sets, daily range): BP systolic 125–190; BP diastolic 57–103; PULSE 66–164; RESP 20–97; TEMP 36.9; O2SAT 82–99; BMI 42.9
--- NOTE | 2025-01-06 00:49 | XR_ITS ---
Examination: Complete OB ultrasound greater than 14 weeks Date and time of exam: January 06, 2025, 0053 hours INDICATIONS: Leaking amniotic fluid this evening, no movement Findings: Viable intrauterine single fetus with single amniotic sac presentation cephalic Cardiac motion 153 bpm Placenta anterior grade 1 Umbilical cord insertion and three-vessel seen. Amniotic fluid index 8.7 cm Ovaries obscured by the fetus. Composite estimated gestational age based on BPD, head circumference, abdominal circumference, femur length is 32 weeks 1 day Estimated weight 1910 g. Survey of intracranial anatomy, spinal anatomy, abdominal anatomy, four-chamber heart performed with no abnormalities identified. Impression: Viable intrauterine gestation in cephalic presentation.
[2025-01-06 01:34] LABS: ROM Kit Exp Date# 04/11/28; ROM Kit Lot # 58106258; ROM Swab Mixed By: YG; Swb Mxed in Solvent 1 min? Yes
[2025-01-06 01:41] LABS: Rupture of Fetal Membranes Positive (Negative)
[2025-01-06] MEDS: SODIUM CHLORIDE 0.9% 1000 ML 1,000 ML 75 ML IV (01:55)
[2025-01-06 02:01] LABS: Collection Type, Urine Clean Catch
[2025-01-06 02:03] LABS: Basophils # (Auto) 0.0 Thou/mm3 (0.0-0.2); Basophils % (Auto) 0 % (0-2.5); Eosinophils # (Auto) 0.3 Thou/mm3 (0.0-0.5); Eosinophils % (Auto) 3 % (0-10); Hematocrit 34.7 % (36.0-46.0); Hemoglobin 11.8 g/dL (12.0-16.0); Immature Granulocytes Auto 0.06 Thou/mm3 (0.00-0.00); Lymphocytes # (Auto) 2.7 Thou/mm3 (1.0-4.8); Lymphocytes % (Auto) 32 % (10-50); Mean Corpuscular HGB Conc 34.0 g/dl (31.0-37.0); Mean Corpuscular Hemoglobin 29.3 pg (25.0-35.0); Mean Corpuscular Volume 86 fL (80-100); Monocytes # (Auto) 0.5 Thou/mm3 (0.0-0.8); Monocytes % (Auto) 6 % (0-12); Neutrophils # (Auto) 4.9 Thou/mm3 (1.8-7.7); Neutrophils % (Auto) 58 % (37-80); Nucleated Red Blood Cell # 0.00 Thou/mm3 (0.00-0.00); Nucleated Red Blood Cell % 0 /100 WBC (0); Platelet Count 219 Thou/mm3 (140-440); RDW Standard Deviation 43.6 fL (36.4-46.3); Red Blood Count 4.03 Miln/mm3 (4.00-5.20); White Blood Count 8.5 Thou/mm3 (3.6-11.0)
[2025-01-06] MEDS: Magnesium Sulfate 4 GM Ivpb 4 GM/50 ML BAG IV (02:05)
[2025-01-06] MEDS: Ampicillin Inj 2,000 MG in SODIUM CHLORIDE 0.9% (POP) 100 ML 200 MG IV (02:09)
[2025-01-06] MEDS: BETAMET ACET/BETAMET NA PH (Celestone) 6 MG/ML VIAL 12 MG IM (02:10)
[2025-01-06 02:12] LABS: Amphetamine/Metham Scrn,Ur OB Negative (Negative); Benzoylecgonine Screen, Ur OB Negative (Negative); Opiate Screen,Urine OB Negative (Negative); THC Screen,Urine OB Negative (Negative)
--- NOTE | 2025-01-06 02:19 | PRELIM_ITS ---
Obstetric ultrasound. January 06, 2025 0053 hours Clinical history: No movement Findings: The evaluation is limited due to body habitus and gestation age.There is a gravid uterus with a live fetus in cephalicpresentation of mean gestational age 32weeks and 1day (by biometry). cardiac activity is present at a heart rate of 153beats per minute. The placenta is anteriorin location, maturity grade 1. There is no evidence of placenta previa or retroplacental hemorrhage. Amniotic fluid is adequate (ARABELLA = 8.7cm). Estimated weight is 1910.5grams+/- 283grams. Cervical length is not well visualized. Estimated due date by ultrasound is 03/02/2025. Impression: Gravid uterus with a single live fetus in cephalicpresentation of mean gestational age 32weeksand 1day. Report Electronically Signed By: Celso Cash 01/06/2025 2:18:43 AM [EST]
[2025-01-06 02:24] LABS: Bacteria,Urine Rare; Bilirubin,Urine Negative (Negative); Blood,Urine 2+ (Negative); Calcium Oxalate Crystals,Urine 1+; Clarity,Urine Clear (Clear/Hazy); Color,Urine Lt-Yellow (Lt Yel-Yel); Glucose, Urine 3+ (Negative); Ketones,Urine 1+ (Negative); Leukocyte Esterase,Urine Negative (Negative); Nitrite,Urine Negative (Negative); PH,Urine 6.0 (5.0-7.0); Protein,Urine 1+ (Neg - Trace); RBC,Urine 22 /hpf (0-3); Specific Gravity,Urine 1.023 (1.001-1.035); Squamous Epithelial Cell,Urine 3 /hpf (0-5); Urobilinogen,Urine Negative mg/dL (0.0-1.0); WBC,Urine 3 /hpf (0-5)
[2025-01-06 02:29] LABS: Fibrinogen 441 mg/dL (175-375); INR 1.0 (0.9-1.3); Partial Thromboplastin Time 25.8 Seconds (22.0-36.0); Prothrombin Time 10.3 Seconds (9.0-12.2)
[2025-01-06] MEDS: MAGNESIUM SULF 20 GM IVPB 20 GM/500 ML BAG IV (02:30)
[2025-01-06 02:32] LABS: Alanine Aminotransferase 11 U/L (10-49); Albumin, Serum 3.8 gm/dL (3.5-5.0); Albumin/Globulin Ratio 1.8 (1.2-2.2); Alkaline Phosphatase 76 U/L (46-116); Anion Gap 14 (7-16); Aspartate Amino Transferase 17 U/L (0-34); BUN/Creatinine Ratio 14 Ratio (12-20); Bilirubin,Total 0.2 mg/dL (0.3-1.2); Blood Urea Nitrogen 7 mg/dL (9-23); Calcium 9.3 mg/dL (8.3-10.6); Calcium (Corrected) 9.5 mg/dL (8.5-10.1); Carbon Dioxide 19.0 mMol/L (20.0-31.0); Chloride 107 mMol/L (98-107); Creatinine (Component) 0.5 mg/dL (0.6-1.3); Estimated Creatinine Clearance 198.9 mL/min (>60); Globulin 2.1 gm/dL (2.3-3.5); Glucose 180 mg/dL (74-106); LDH (Lactate Dehydrogenase) 178 U/L (120-246); Osmolality,Calculated 282 (275-295); Potassium 3.9 mMol/L (3.4-5.1); Sodium 140 mMol/L (136-145); Total Protein 5.9 gm/dL (5.7-8.2); Uric Acid 6.6 mg/dL (3.1-7.8); eGFR > 60 See Note
--- NOTE | 2025-01-06 03:29 | PD.LDANTE ---
Documentation for date of: 01/06/25 OB Labor/Induct. HPI History of Present Illness : 3 Para: 1 Term pregnancies: 1 pregnancies: 0 Living children: 1 History of Abortions: Spontaneous and Elective: 1 History of Vaginal deliveries: 0 History of sections: Yes History of : No TAPAN: 03/11/25 Gestational Age (weeks): 30 Gestational Age (days): 6 History of present illness: patient came with SROm and irregular contractions History of Present Dating criteria: LMP confirmed by 1st trimester US Adequate Care: Yes Ultrasounds: normal 1st trimester US and normal mid trimester US Obstetrical complications: other (chroni HYpertension/ type 2 Dm on insulin and metformin and bipolar disorder ) Labs Maternal Blood Type: O Pos Review of Systems Review of Systems Systems Reviewed: All systems reviewed, normal except as documented Past Medical History Past Medical History CARDIAC: Positive Hypertension ENDOCRINE: Positive Diabetes Mellitus Type 2 PSYCHO/SOCIAL: Positive Bipolar Disorder OTHER HISTORY: Positive Hospitalization Surgical History SURGICAL: Positive Section Social History SMOKING STATUS: Unknown if ever smoked SUBSTANCE USE: does not use Past Medical History Comments PMH COMMENT: was on lisnopril and switched Meds Home Medications and Allergies Home Medications ?Medication ?Instructions ?Recorded ?Confirmed ?Type insulin aspart U-100 100 unit/mL 46 unit subcut TID 01/03/25 01/06/25 History (3 mL) subcutaneous pen (Novolog FlexPen U-100 Insulin aspart) nifedipine 30 mg tablet,extended 30 mg PO QDAY 01/03/25 01/06/25 History release 24 hr insulin NPH isoph U-100 human 100 50 unit subcut BID 01/06/25 01/06/25 History unit/mL (3 mL) subcutaneous pen (Humulin N NPH U-100 Insulin KwikPen) metformin 1,000 mg tablet 1,000 mg PO BID 01/06/25 01/06/25 History Allergies Allergy/AdvReac Type Severity Reaction Status Date / Time No Known Allergies Allergy Verified 01/06/25 01:09 OB Exam Physical Exam Vital signs: Temp Pulse Resp BP Pulse Ox 98.4 F 101 H 20 136/75 H 98 01/06/25 00:27 01/06/25 03:27 01/06/25 00:27 01/06/25 03:27 01/06/25 03:24 Narrative: Size equal to dates uterus non tender Occasional/ contractions non tender FHR is category 1 feta presentation is vertex ARABELLA is >8 cm EFW is 1.9 kg cervix is closed , thick and high grossly SROm Amniosure is positive Constitutional Constitutional: no acute distress and cooperative Comments: Alert and oriented x 3 no shortness of breath Pain no chest pain no palpitations Chest clear bilaterally no additional sounds, no wheezing no rales CVS regular rate and rhythm No CVAT Abdomen nontender, normal bowel sounds No guarding no rigidity No hernias OB Results Labs 01/06/25 01:35 01/06/25 01:35 Labs: Short CBC 01/06/25 Range/Units 01:35 WBC 8.5 (3.6-11.0) Thou/mm3 Hgb 11.8 L (12.0-16.0) g/dL Hct 34.7 L (36.0-46.0) % Plt Count 219 (140-440) Thou/mm3 BMP 01/06/25 01:35 Sodium 140 Potassium 3.9 Chloride 107 Carbon Dioxide 19.0 L BUN 7 L Creatinine 0.5 L Glucose 180 H Calcium 9.3 Liver Function 01/06/25 Range/Units 01:35 Total Bilirubin 0.2 L (0.3-1.2) mg/dL AST 17 (0-34) U/L ALT 11 (10-49) U/L Alkaline Phosphatase 76 (46-116) U/L Albumin 3.8 (3.5-5.0) gm/dL Urine 01/06/25 Range/Units 01:35 Urine Color Lt-Yellow (Lt Yel-Yel) Urine Clarity Clear (Clear/Hazy) Urine pH 6.0 (5.0-7.0) Ur Specific [place] 1.023 (1.001-1.035) Urine Protein 1+ A (Neg - Trace) Urine Glucose (UA) 3+ A (Negative) OB Assessment & Plan Assessment and Plan (1) Previous section: Status: Acute (2) Chronic hypertension affecting : Status: Acute (3) Diabetes 1.5, managed as type 2: Status: Acute (4) Advanced maternal age (AMA) in : Status: Acute (5) premature rupture of membranes (PPROM) with onset of labor within 24 hours of rupture in third trimester, antepartum: Status: Acute Additional Plan Induction method: none Plan: other Additional Plan Comment: Transfer to [facility] for additional , higher level care for NICU and delivery / Spoke to Dr Darrell SILVA and agrees to accept patient . patient will be transferred
[2025-01-06 03:42] LABS: Glucose Estimated Average 143 mg/dL (80-131); Hemoglobin A1C 6.6 % Hgb (4.8-6.0)
[2025-01-06 04:36] LABS: Magnesium 2.8 mg/dL (1.6-2.6)
[2025-01-06] MEDS: Ampicillin Inj 1,000 MG in SODIUM CHLORIDE 0.9% (Popper) 50 ML 50 MG IV (06:55)
--- NOTE | 2025-01-06 07:25 | PC.NURSE ---
([id number]) [facility] called to L&D regarding Triage ([facility]), transfer declined at this time d/t weather. (0501)[facility] called for transfer on Triage ([facility]), transportation services representative reports they will call back on transfer update. (0514) [facility] called to L&D unit regarding transfer, transportation services representative requested for unit to call back at 0700 for transfer update. (0544) [facility] called regarding Transfer, Facesheet and PCS form faxed. Farnaz from [facility] reports they are able to sent [place] personnel in approximately 45 minutes if an RN goes on the transfer. (0555) [facility] called, control valve mechanic spoke to Farnaz regarding Transfer, at 0600 Farnaz reported that the Critical Care unit from [facility] can transfer the patient to [facility] without a RN. (0613) Farnaz from [facility] called, reports the Critical Care Unit is unable to transfer the patient d/t not having the equipment to do continuous monitoring. ? control valve mechanic inquire about using a Doppler, Farnaz reported she would call back with an update on the transfer. (0626) Farnaz from [facility] called, reports the Critical Care Unit is unable to transfer the patient d/t not being able to do monitoring.
--- NOTE | 2025-01-06 08:47 | PC.CM ---
0840 I called [facility] and I spoke to Ksenia. She states the weather is still bad, and they will have an update at 0930. I asked if they could provide a team so we can send by ground. She states they have protocol for going ground and she would have to run it by her senior windows administrator. She states she will speak to her supervisor blood donor recruiters and get back to me. I spoke to house player and we do not have a nurse ride along to send patient via ambulance. 0830 Patient is being transferred to [facility] for PROM. I spoke to Sb in OB and she stated patient is ready for transfer and they have packet ready. They are waiting on [facility] to come pick up man patient. Sb said originally [facility] was going to be coming around 0840, but they delayed pick up man due to weather. She stated they reached out to [facility] , but they were in the same situation.
== END 2025-01-06 09:42 | disposition short-term general hospital (02) ==
PROVIDERS: Admitting Provider Obstetrics & Gynecology; Visit Provider Obstetrics & Gynecology
DX: O42.013 Preterm premature rupture of membranes, onset of labor within 24 hours of rupture, third trimester (principal); Z3A.32 32 weeks gestation of pregnancy; O09.523 Supervision of elderly multigravida, third trimester; O34.219 Maternal care for unspecified type scar from previous cesarean delivery; O24.813 Other pre-existing diabetes mellitus in pregnancy, third trimester; O10.913 Unspecified pre-existing hypertension complicating pregnancy, third trimester; E13.9 Other specified diabetes mellitus without complications; Z79.4 Long term (current) use of insulin; Z79.84 Long term (current) use of oral hypoglycemic drugs
CPT/HCPCS: 36415; 59025; 59899; 76805; 80053; 80307; 81001; 83036; 83615; 83735; 84112; 84550; 85025; 85384; 85610; 85730; 86850; 86900; 86901; 96372; J0290; J0702; J3475; J7030; J7050; A9270

== ENCOUNTER 2025-01-10 14:25 | Observation (INO) | payer MEDICAID, SELFPAY ==
[2025-01-10] VITALS (27 sets, daily range): BP systolic 128–165; BP diastolic 67–96; PULSE 85–109; O2SAT 98–100
--- NOTE | 2025-01-10 14:30 | PC.NURSE ---
01/10/25 @1422 PT TRANSFERRED TO OB TRIAGE FROM NST VISIT A [address] ASTORGA. SEE NOTES FROM NST RE-OCCURING ACCOUNT.
[2025-01-10] MEDS: hydrALAZINE INJ 20 MG/ML VIAL 5 MG IVP (16:07)
--- NOTE | 2025-01-10 16:56 | PC.NURSE ---
PT TRANSFERRED TO OB TRIAGE FROM NST VISIT A [address] ASTORGA. SEE NOTES FROM NST RE-OCCURING ACCOUNT.
== END 2025-01-10 17:30 | disposition home or self-care (01) ==
PROVIDERS: Admitting Provider Obstetrics & Gynecology; PCP Family Medicine; Visit Provider Obstetrics & Gynecology
DX: Z34.90 Encounter for supervision of normal pregnancy, unspecified, unspecified trimester (principal); Z3A.00 Weeks of gestation of pregnancy not specified
CPT/HCPCS: 59899; 96374; J0360; A9270

== ENCOUNTER 2025-01-11 10:43 | Outpatient (AMB) | payer MEDICAID, SELFPAY ==
--- NOTE | 2025-01-11 10:49 | OBCLNT_ITS ---
Vital Signs 01/11/25 10:50 Height 1.65 m Height Method Stated Weight 114.872 kg Weight Measurement Method Standing Scale BMI 42.2 BP 136/89 H Blood Pressure Source Automatic Cuff Blood Pressure Location Right Upper Arm Position Sitting Respiration 18 Pulse 101 H Pulse Source Monitor Temp 98.0 F Temp Source Temporal Artery Scan Pulse Oximetry (%) 97 Oxygen Delivery Method Room Air Allergies/Home Meds Allergies & Medications Allergies labetalol Allergy (Severe, Verified 02/22/25 09:20) Numbness Medication Reconciliation vits no.126-ferrous fum 28 mg iron-folic acid 800 mcg tablet (Classic ) 0.126 - 28 tab PO DAILY 30 days #60 tabs 07/19/24 [Rx Confirmed 02/22/25] blood pressure test kit-medium #1 ea 11/14/24 [Rx Confirmed 02/22/25] insulin aspart U-100 100 unit/mL (3 mL) subcutaneous pen (Novolog FlexPen U-100 Insulin aspart) 46 unit subcut TID 01/03/25 [History Confirmed 02/22/25] insulin NPH isoph U-100 human 100 unit/mL (3 mL) subcutaneous pen (Humulin N NPH U-100 Insulin KwikPen) 50 unit subcut BID 01/06/25 [History Confirmed 02/22/25] metformin 1,000 mg tablet 1,000 mg PO BID 01/06/25 [History Confirmed 02/22/25] nifedipine 30 mg tablet,extended release 30 mg PO BID 01/28/25 [History Confirmed 02/22/25] hydrocodone 5 mg-acetaminophen 325 mg tablet 1 tab PO Q4HR PRN Patient rated pain 7 to 8 #14 tabs 01/31/25 [Rx Confirmed 02/22/25] ibuprofen 400 mg tablet 800 mg (2 x 400 mg) PO Q8HR PRN Pain 1-6 (Mild-Mod #30 tabs 01/31/25 [Rx Confirmed 02/22/25] insulin NPH isoph U-100 human 100 unit/mL subcutaneous suspension (Humulin N NPH U-100 Insulin (isophane susp)) 20 unit (0.2 mL) SCi QDAY #10 mL 01/31/25 [Rx Confirmed 02/22/25] metformin 500 mg tablet 1,000 mg (2 x 500 mg) PO BIDAC #60 tabs 01/31/25 [Rx Confirmed 02/22/25] nifedipine 30 mg tablet,extended release 24 hr 30 mg PO BID #60 tabs 01/31/25 [Rx Confirmed 02/22/25] Intake Visit Data Collection New Patient or Established: Established Patient (seen at [facility] within 3 years) Reason for Visit:: OBC Seen by Clinical Staff ONLY (RN/MA): No Electronic Scale Subassembler Required: No Do You Feel Safe at Home: Yes Authorities Contacted: N/A PCP or OBGYN visit in last 3 months: Yes Hx Now: Yes Are you currently on any form of Control: No Pain Present Currently: No Pain Scale Used: Mccarty-Ohara/Numerical Pain scale:: 0 Smoking Status Smoking Status: Never smoker Immunizations Flu Vaccine in the Last 12 Months: No Flu Vaccine Exclusion Criteria: No Exclusion Criteria Questionnaires Covid-19 Vaccine Questionnaire Has patient been vacinated for Covid-19 Have you been vacinated for Covid-19: No PHQ-9 PHQ-2 Over the last 2 weeks, how often have you been bothered by any of the following problems? 1. Little interest or pleasure in doing things: not at all 2. Feeling down, depressed, or hopeless: not at all Total score: 0 PHQ-9 3. Trouble falling or staying asleep, or sleeping too much: Not at all 4. Feeling tired or having little energy: Not at all 5. Poor appetite or overeating: Not at all 6. Feeling bad about yourself - or that you are a failure or have let yourself or your family down: Not at all 7. Trouble concentrating on things, such as reading the newspaper or watching television: Not at all 8. Moving or speaking so slowly that other people could have noticed? - Or the opposite - being so fidgety or restless that you have been moving around a lot more than usual: not at all 9. Thoughts that you would be better off or of hurting yourself in some way: Not at all Total score: 0 If you checked off any problems, how difficult have these problems made it for you to do your work, take care of things at home, or get along with other people?: not difficult at all Source: Developed by Drs. Duy Norton, Namita Maciel, Ashok Walker and colleagues, with an educational gabrielle from [employer]. 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 Previous C- section x 1. Patient is type II diabetic. She takes metformin thousand and NovoLog 38 units and then she also takes Levemir 32 units. Patient stopped taking her Ozempic 2 weeks ago. She has a history of irregular menses. Patient had a 6-week ultrasound July 16, 2024 and this dated her March 13, 2025. History of chronic hypertension. Patient takes lisinopril 2.5 daily. She denies any SAB complaints at this time. Denies any nausea and vomiting. The patient is taking vitamins. So I discussed SAB precautions with patient. Consulted with OB regarding medication for chronic hypertension. Patient will be changed to labetalol 200 mg twice daily and that was ordered to pharmacy. I also ordered prenatals. Discussed diet and glucometer testing. SAB precautions reviewed with patient. OB panel with CMP hCG and TSH ordered. And I scheduled patient for MFM referral due to the diabetes and hypertension advanced maternal age. SAB precautions reviewed and patient return in 4 weeks with OB 08/16/24 -?-?-?-?-?-?-?-?-?-?-?-?- 10w 3d 100.754 kg 134/88 30yo @12w5d, severe hyperemesis (recent 5-day admission), low K+, chronic HTN on labetalol/Procardia, bipolar disorder on lamotrigine, insomnia. Plan: continue meds (Phenergan, Zofran, Reglan, Protonix, prednisone), refill prescriptions, labs for genetic testing, welfare note, check FHR by [facility] when room available. @10w5d, T2DM on Basag lar/NovoLog, chronic HTN on labetalol. Plan: initial labs incl. NIPT, SMA, CF; vitamins; MFM/nutrition referral if indicated; routine care. 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 Reports nausea, no CTX/LOF/VB, denies SHARMA/VC/RUQ pain. Active lifestyle but difficulty with dietary adherence noted. FHR visualized with motion, bpm not recorded. Labs: UPCR 563, glucose post-meal 219, g enetic labs pending from 01/17. Insulin: Basaglar 40u AM/8u PM, NovoLog 15u TID. Plan: Insulin adjusted to Basaglar 40u BID, NovoLog 20u TID (total daily dose 140u). Patient educated on diabetic diet; food list provided. Encouraged postprandial activity for glucose control. Continue labetalol. Monitor for preeclampsia; preeclampsia panel pending. Await genetic results and MFM referral. Follow up in 2 weeks. 09/17/24 -?-?-?-?-?-?-?-?-?-?-?-?- 15w 0d 105.687 kg 121/81 absent 135 at 15w0d with T2DM and HTN. Reports difficulty with diet adherence and recent postprandial glucose spikes up to 247. Currently on Basaglar 40 BID and NovoLog 20 TID, total 140 units/day. CGM in place. [facility]' recommends switch to NPH. Also reports pedal edema, likely multifactorial. NIPT neg, male fetus. Plan: change Basaglar to NPH per MFM, send script, continue CGM, f/u 4wks, await U/S report. Supervisor Case Loading on glucose targets, diet, and edema. Continue routine care 10/19/24 -?-?-?-?-?-?-?-?-?-?-?-?- 19w 4d 109.032 kg 124/84 absent cephalic 155 active - Gladis Costello is presenting for a visit at 19 weeks and 4 days gestation with a past medical history of type 2 diabetes mellitus and chronic hypertension. - She reports her blood sugar numbers ar e getting better since her insulin was changed to NPH per maternal- medicine. - Her highest recent blood sugar was 1 63 today. - She now experiences episodes of low blood sugar. - She reports adherence to dietary modif ications. - She has started feeling some mov ements described as a little bit like tickling. - She has an upcoming appointment at [facility] on November 06. - Continue current insulin regimen with NPH as prescribed by [facility] - Patient to adjust insulin dosing: redu ce by 2 units if glucose low, increase by 2-3 units if glucose high - Continue current diet management - Follow up appointment at [facility] scheduled for November 06 - Obtain A1c and thyroid panel 1-2 days before next appointment - Lab order provided to patient 11/21/24 -?-?-?-?-?-?-?-?-?-?-?-?- 24w 2d 108.522 kg 126/85 absent cephalic 25 14 2 active - Blood glucose control: - Highest recent blood glucose was 163 , which is lower than previous readings - Patient reports blood sugars have be en okay and more or less the same as last visit - Current diabetes management: - Insulin regimen: 44 units of long-ac ting insulin morning and night (88 units total) - 36 units of fast-acting insulin (Adelaida pro) split into 12 units three times daily - Continuing metformin as prescribed - Continue current insulin regimen: 44 units slow-acting insulin morning and night, 36 units fast-acting insulin split into 12-12-12 - Continue metformin as prescribed - Start aspirin 81mg daily, [id number]-[id number] nter if necessary - Perform A1c test - Follow up in 4 weeks - Continue management with [facility] for diabetes care - Continue current insulin r egimen: 44 units slow-acting insulin morning and night, 36 units fast-acting insulin split into 12-12-12 - Continue metformin as prescribed - Start aspirin 81mg daily, alxz-xck-peb nter if necessary - Perform A1c test - Follow up in 4 weeks - Continue management with [facility] for diabetes care. 12/24/24 -?-?-?-?-?-?-?-?-?-?-?-?- 29w 0d 112.264 kg 126/84 absent cephalic 29 14 5 active - She has type 2 diabetes mellitus with suboptimal glycemic control. - Reports glucose levels as high as 24 7 mg/dL, with post-meal readings of 230- 250 mg/dL. - States the more insulin they gave m e, it's like the bigger the numbers are. - Recently tried returning to original lower insulin doses (30-something units of NPH) on her own and reports these resulted in normal glucose levels. - [facility] has been co-managing her insulin and diabetes, with recent increases to 88 units of long-acting lispro and 36 units TID of Humalog. - Reports consistent adherence to diet w ith good portion control. - Notes decreased movement over past few days compared to usual activity levels. - Baby remains active overall but patien t describes less movement than prev iously experienced. - Reduce ins ulin dosage to previous levels for 5-7 days to assess glycemic control - Consider 24-hour hospital admission fo r controlled insulin adjustment if lower dosage is ineffective - Follow up in 2 weeks with diabetic log s - Continue with scheduled repeat e chocardiogram in 4-6 weeks - Await call from hospital for anesthesi a consultation - Continue twice weekly monitoring ( and ) 01/11/25 -?-?-?-?-?-?-?-?-?-?-?-?- 31w 4d 114.872 kg 136/89 absent cephalic 31 15 0 active - She was recently transferred to [facility] for premature rupture of membranes (PPROM) evaluation but was discharged after rupture of membranes was ruled out. - She is currently on Procardia 30 XL fo r blood pressure management. - She confirms medication adherence, hav ing started the Procardia last night and taking it nightly at 24-hour intervals. - She has a urine container for 24-hour urine collection as part of her hypertension workup. - Continue Procardia 30 XL daily (taken at night, 24-hour intervals) - Start 24-hour urine collection on , bring specimen on Tuesday - Blood pressure monitoring: check again tomorrow at same time as today's visit - Follow-up appointments: Tuesday and Tue at [facility] for [facility] - Office follow-up appointment scheduled for Tuesday01/16/25 -?-?-?-?-?-?-?-?-?-?-?-?- 32w 2d 116.176 kg 135/89 absent cephalic 32 14 5 active - She has a past medical history of Type 2 diabetes mellitus and hypertension in . - Patient reports no contractions or oth er obstetric issues at this visit. - Blood sugar control has been generally acceptable with one elevated reading last night reaching over 160 mg/dL after eating pizza. - Current blood sugar reported as 80- something mg/dL at time of visit. - Patient was previously transferred to [facility] for evaluati on of possible rupture of membranes, which was ruled out. - She denies any current concerns and reports feeling okay overall. Plan - scheduled at 37 weeks due to blood pressure on 02/21/2025@07:30 AM - Hospital date to be booked and communi cated to patient TAPAN Calculator Estimated Delivery Date Method Current WG Current Estimate 03/11/25 Ultrasound #2 39w 3d Other Estimates 01/12/25 LMP (Uncertain) 47w 5d Notes Visit Date: 01/16/25 Last Updated by: Adams Cohen MD - Date: 01/14/2025 - [facility] ultrasound: Single living fetus at 32 weeks 0 days gestation, estimated weight 2183 grams (83rd percentile), amniotic fluid within normal limits, anatomy and visualized structures normal, placenta anterior with no previa, vertex presentation - Biophysical profile: 8 out of 8 Visit Date: 11/21/24 Last Updated by: Adams Cohen MD - Ultrasound (performed last week, finalized on 11/21/2024)/[facility] ens: - weight: 579 grams (1 pound 4 ounces) - Gestational age: Consistent with dates - Anatomy survey: Overall normal study Visit Date: 10/19/24 Last Updated by: Adams Cohen MD - Type 2 Diabetes Mellitus - Chronic hypertension - (19 weeks 4 days gestation) Visit Date: 07/19/24 Last Updated by: Jackelyn June CNM 33 yo . irregular menses, sono: 07/16/24: IUP viable, 6 week, EDC 03/13/25 Office Procedures OBC Clinic LOC & Office Proc's Nursing/Assessment Patient Status: Established Patient OB Clinic Nursing Assessment: Medication Reconciliation, Update PMH in EMR and Vital Signs OB Clinic Coordination of Care: Complex Care and Chronic Disease 1-5, Education Complex Pt/Fam, Consent,records obtained, informed consent and Staff clarify orders Special Needs: Heart tones Established Patient Charge Established Patient Point Assignment: 120 Established Patient Point Charge: EP Level 4 (120-155) Assessment & Plan Diagnosis / Problem List (1) Supervision of high risk , unspecified, third trimester: Status: Acute Plan Problem List - Hypertension in - at 31 weeks and 4 days gestation Assessment 34-year-old 3 para 1 at 31 weeks 4 days gestation presenting for ER follow-up after being transferred to [facility] for premature rupture of membranes (PPROM) evaluation, which was ruled out and patient disc harged. Currently on Procardia 30 XL for blood pressure management with today's reading of 136/89 mmHg. Patient reports compliance with medication initiated the previous night. Plan - Continue Procardia 30 XL daily (taken at night, 24-hour intervals) - Start 24-hour urine collection on Tuesday, bring specimen on Tuesday - Blood pressure monitoring: check again tomorrow at same time as today's visit - Follow-up appointments: Tuesday and at [facility] - Office follow-up appointment scheduled for Tuesday 1. Progress Reviewed gestational age (31 weeks and 4 days), growth, and heart rate. Planned frequent visits (every 2 weeks until 36 weeks, then weekly). 2. Instructed patient to monitor movements and report decreases immediately. 3. Testing Counseled on routine third-trimester labs per guidelines. Discussed potential need for ultrasound or monitoring based on risk factors. 4. Preeclampsia Precaution Educated on preeclampsia signs: severe headache, vision changes, right upper quadrant pain, sudden swelling. Advised urgent reporting of symptoms and discussed blood pressure monitoring if high risk. 5. Labor Precautions Reviewed labor signs: regular contractions, pelvic pressure, back pain, bleeding, or fluid leakage. Instructed to seek immediate care for these symptoms. 6. Lifestyle and Delivery Preparation Reinforced vitamins, nutrition, and safe activity. Discussed plan, pain management, and . Advised on labor preparation (e.g., hospital bag) and expectations. 7. Psychosocial Support Assessed emotional well-being and offered resources for mental health or parenting support.
[2025-01-11 10:50] VITALS: BP 136/89; PULSE 101; RESP 18; TEMP 36.7; O2SAT 97; BMI 42.2
== END 2025-01-11 11:22 | disposition home or self-care (01) ==
LOC: HODSOBC 10:43
PROVIDERS: Supervising Provider Obstetrics & Gynecology; Visit Provider Obstetrics & Gynecology
DX: O09.893 Supervision of other high risk pregnancies, third trimester (principal); O10.913 Unspecified pre-existing hypertension complicating pregnancy, third trimester; O09.523 Supervision of elderly multigravida, third trimester; O24.113 Pre-existing type 2 diabetes mellitus, in pregnancy, third trimester; Z3A.31 31 weeks gestation of pregnancy; Z88.8 Allergy status to other drugs, medicaments and biological substances; Z79.899 Other long term (current) drug therapy
CPT/HCPCS: 99214; G0463

== ENCOUNTER 2025-01-16 08:48 | Outpatient (AMB) | payer MEDICAID, SELFPAY ==
[2025-01-16 09:00] VITALS: BP 135/89; PULSE 107; RESP 18; TEMP 36.2; O2SAT 98; BMI 45.3
--- NOTE | 2025-01-16 09:00 | AMB.OBVISIT ---
Vital Signs 01/16/25 09:00 Height 1.6 m Height Method Stated Weight 116.176 kg Weight Measurement Method Standing Scale BMI 45.3 BP 135/89 H Blood Pressure Source Automatic Cuff Blood Pressure Location Left Upper Arm Position Standing Respiration 18 Pulse 107 H Pulse Source Monitor Temp 97.2 F Temp Source Oral Pulse Oximetry (%) 98 Oxygen Delivery Method Room Air Allergies/Home Meds Allergies & Medications Allergies labetalol Allergy (Severe, Verified 01/16/25 09:01) Numbness Medication Reconciliation vits no.126-ferrous fum 28 mg iron-folic acid 800 mcg tablet (Classic ) 0.126 - 28 tab PO DAILY 30 days #60 tabs 07/19/24 [Rx Confirmed 01/16/25] blood pressure test kit-medium #1 ea 11/14/24 [Rx Confirmed 01/16/25] insulin aspart U-100 100 unit/mL (3 mL) subcutaneous pen (Novolog FlexPen U-100 Insulin aspart) 46 unit subcut TID 01/03/25 [History Confirmed 01/16/25] insulin NPH isoph U-100 human 100 unit/mL (3 mL) subcutaneous pen (Humulin N NPH U-100 Insulin KwikPen) 50 unit subcut BID 01/06/25 [History Confirmed 01/16/25] metformin 1,000 mg tablet 1,000 mg PO BID 01/06/25 [History Confirmed 01/16/25] nifedipine 30 mg tablet,extended release 30 mg PO QDAY 30 days #30 tabs 01/10/25 [Rx Confirmed 01/16/25] Intake Visit Data Collection New Patient or Established: Established Patient (seen at [facility] within 3 years) Reason for Visit:: 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 Do You Feel Safe at Home: Yes Authorities Contacted: N/A PCP or OBGYN visit in last 3 months: Yes Date of Last PCP or OBGYN visit: 01/11/25 Hx Now: Yes Are you currently on any form of Control: No Pain Present Currently: No Pain Scale Used: Mccarty-Ohara/Numerical Pain scale:: 0 Smoking Status Smoking Status: Never smoker Immunizations Flu Vaccine in the Last 12 Months: No Flu Vaccine Exclusion Criteria: No Exclusion Criteria Questionnaires Covid-19 Vaccine Questionnaire Has patient been vacinated for Covid-19 Have you been vacinated for Covid-19: Yes PHQ-9 PHQ-2 Over the last 2 weeks, how often have you been bothered by any of the following problems? 1. Little interest or pleasure in doing things: not at all 2. Feeling down, depressed, or hopeless: not at all Total score: 0 PHQ-9 3. Trouble falling or staying asleep, or sleeping too much: Not at all 4. Feeling tired or having little energy: Not at all 5. Poor appetite or overeating: Not at all 6. Feeling bad about yourself - or that you are a failure or have let yourself or your family down: Not at all 7. Trouble concentrating on things, such as reading the newspaper or watching television: Not at all 8. Moving or speaking so slowly that other people could have noticed? - Or the opposite - being so fidgety or restless that you have been moving around a lot more than usual: not at all 9. Thoughts that you would be better off or of hurting yourself in some way: Not at all Total score: 0 If you checked off any problems, how difficult have these problems made it for you to do your work, take care of things at home, or get along with other people?: not difficult at all Source: Developed by Drs. Duy Norton, Namita Maciel, Ashok Walker and colleagues, with an educational gabrielle from [employer]. 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 Previous x 1. Patient is type II diabetic. She takes metformin thousand and NovoLog 38 units and then she also takes Levemir 32 units. Patient stopped taking her Ozempic 2 weeks ago. She has a history of irregular menses. Patient had a 6-week ultrasound July 16, 2024 and this dated her March 13, 2025. History of chronic hypertension. Patient takes lisinopril 2.5 daily. She denies any SAB complaints at this time. Denies any nausea and vomiting. The patient is taking vitamins. So I discussed SAB precautions with patient. Consulted with OB regarding medication for chronic hypertension. Patient will be changed to labetalol 200 mg twice daily and that was ordered to pharmacy. I also ordered prenatals. Discussed diet and glucometer testing. SAB precautions reviewed with patient. OB panel with CMP hCG and TSH ordered. And I scheduled patient for MFM referral due to the diabetes and hypertension advanced maternal age. SAB precautions reviewed and patient return in 4 weeks with OB 08/16/24 <del>?</del> 10w 3d 100.754 kg 134/88 30yo @12w5d, severe hyperemesis (recent 5-day admission), low K+, chronic HTN on labetalol/Procardia, bipolar disorder on lamotrigine, insomnia. Plan: continue meds (Phenergan, Zofran, Reglan, Protonix, prednisone), refill prescriptions, labs for genetic testing, welfare note, check FHR by davidson when room available. @10w5d, T2DM on Basaglar/NovoLog, chronic HTN on labetalol. Plan: initial labs incl. NIPT, SMA, CF; vitamins; MFM/nutrition referral if indicated; routine care. 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 Reports nausea, no CTX/LOF/VB, denies SHARMA/VC/RUQ pain. Active lifestyle but difficulty with dietary adherence noted. FHR visualized with motion, bpm not recorded. Labs: UPCR 563, glucose post-meal 219, genetic labs pending from 01/17. Insulin: Basaglar 40u AM/8u PM, NovoLog 15u TID. Plan: Insulin adjusted to Basaglar 40u BID, NovoLog 20u TID (total daily dose 140u). Patient educated on diabetic diet; food list provided. Encouraged postprandial activity for glucose control. Continue labetalol. Monitor for preeclampsia; preeclampsia panel pending. Await genetic results and MFM referral. Follow up in 2 weeks. 09/17/24 <del>?</del> 15w 0d 105.687 kg 121/81 absent 135 at 15w0d with T2DM and HTN. Reports difficulty with diet adherence and recent postprandial glucose spikes up to 247. Currently on Basaglar 40 BID and NovoLog 20 TID, total 140 units/day. CGM in place. [facility] recommends switch to NPH. Also reports pedal edema, likely multifactorial. NIPT neg, male fetus. Plan: change Basaglar to NPH per MFM, send script, continue CGM, f/u 4wks, await U/S report. 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 Continue routine care 10/19/24 <del>?</del> 19w 4d 109.032 kg 124/84 absent cephalic 155 active - Gladis Costello is presenting for a visit at 19 weeks and 4 days gestation with a past medical history of type 2 diabetes mellitus and chronic hypertension. - She reports her blood sugar numbers are getting better since her insulin was changed to NPH per maternal- medicine. - Her highest recent blood sugar was 163 today. - She now experiences episodes of low blood sugar. - She reports adherence to dietary modifications. - She has started feeling some movements described as a little bit like tickling. - She has an upcoming appointment at [facility] on November 06. - Continue current insulin regimen with NPH as prescribed by MFM - Patient to adjust insulin dosing: reduce by 2 units if glucose low, increase by 2-3 units if glucose high - Continue current diet management - Follow up appointment at [facility] scheduled for November 06 - Obtain A1c and thyroid panel 1-2 days before next appointment - Lab order provided to patient 11/21/24 <del>?</del> 24w 2d 108.522 kg 126/85 absent cephalic 25 142 active - Blood glucose control: - Highest recent blood glucose was 163, which is lower than previous readings - Patient reports blood sugars have been okay and more or less the same as last visit - Current diabetes management: - Insulin regimen: 44 units of long-acting insulin morning and night (88 units total) - 36 units of fast-acting insulin (Lyspro) split into 12 units three times daily - Continuing metformin as prescribed - Continue current insulin regimen: 44 units slow-acting insulin morning and night, 36 units fast-acting insulin split into 12-12 - Continue metformin as prescribed - Start aspirin 81mg daily, [id number] if necessary - Perform A1c test - Follow up in 4 weeks - Continue management with [facility] diabetes care - Continue current insulin regimen: 44 units slow-acting insulin morning and night, 36 units fast-acting insulin split into 02-23-12 - Continue metformin as prescribed - Start aspirin 81mg daily, [id number] if necessary - Perform A1c test - Follow up in 4 weeks - Continue management with [facility] diabetes [facility]. TAPAN Calculator Estimated Delivery Date Method Current WG Current Estimate 03/11/25 Ultrasound #2 32w 2d Other Estimates 01/12/25 LMP (Uncertain) 40w 4d Notes Visit Date: 11/21/24 Last Updated by: Adams Cohen MD - Ultrasound (performed last week, finalized on 11/21/2024)/[facility] Campuss: - weight: 579 grams (1 pound 4 ounces) - Gestational age: Consistent with dates - Anatomy survey: Overall normal study Visit Date: 10/19/24 Last Updated by: Adams Cohen MD - Type 2 Diabetes Mellitus - Chronic hypertension - (19 weeks 4 days gestation) Visit Date: 07/19/24 Last Updated by: Jackelyn June CNM 33 yo . irregular menses, sono: 07/16/24: IUP viable, 6 week, EDC 03/13/25 Office Procedures OBC Clinic LOC & Office Proc's Nursing/Assessment Patient Status: Established Patient OB Clinic Nursing Assessment: Medication Reconciliation, Update PMH in EMR and Vital Signs OB Clinic Coordination of Care: Consent,records obtained, informed consent, Education Simp Pt/Fam, Lab and Imaging orders, Results/Orders obtained and Staff clarify orders Special Needs: Heart tones Established Patient Charge Established Patient Point Assignment: 110 Established Patient Point Charge: EP Level 3 (80-115) Assessment & Plan Diagnosis / Problem List (1) premature rupture of membranes (PPROM) with onset of labor within 24 hours of rupture in third trimester, antepartum: Status: Acute (2) Previous section: Status: Acute (3) Chronic hypertension affecting : Status: Acute (4) Diabetes 1.5, managed as type 2: Status: Acute Plan Problem List - Type 2 Diabetes Mellitus - Hypertension in - at 32 weeks and 2 days gestation Assessment 32-week and 2-day patient with Type 2 diabetes mellitus managed on NPH 50 units BID, lispro 48 units TID, and metformin 1000 mg BID, with hypertension treated with nifedipine 30 mg XL. Recent [facility] ultrasound from 01/14/2025 shows single living fetus at 32 weeks with estimated weight of 2183 grams (83rd percentile), normal amniotic fluid levels, normal anatomy, and anterior placenta without previa. Biophysical profile scored 8/8. Patient reports occasional blood glucose elevation to 160s following dietary indiscretion but current glucose in 80s range. Blood pressure appears stable on current antihypertensive therapy. Patient denies contractions or other concerning symptoms. heart rate documented at 148 bpm. Plan - scheduled at 37 weeks due to blood pressure on 02/21/2025@07:30 AM - Hospital date to be booked and communicated to patient 1. Progress Reviewed gestational age (32 weeks 2 days), growth (83rd percentile, 2183 grams), and heart rate (148 bpm). Planned frequent visits (every 2 weeks until 36 weeks, then weekly). 2. Instructed patient to monitor movements and report decreases immediately. 3. Testing Counseled on routine third-trimester labs per guidelines. Discussed potential need for ultrasound or monitoring based on risk factors. 4. Preeclampsia Precaution Educated on preeclampsia signs: severe headache, vision changes, right upper quadrant pain, sudden swelling. Advised urgent reporting of symptoms and discussed blood pressure monitoring if high risk. 5. Labor Precautions Reviewed labor signs: regular contractions, pelvic pressure, back pain, bleeding, or fluid leakage. Instructed to seek immediate care for these symptoms. 6. Lifestyle and Delivery Preparation Reinforced vitamins, nutrition, and safe activity. Discussed plan, pain management, and . Advised on labor preparation (e.g., hospital bag) and expectations. 7. Psychosocial Support Assessed emotional well-being and offered resources for mental health or parenting support.
== END 2025-01-16 09:10 | disposition home or self-care (01) ==
LOC: HODSOBC 08:48
PROVIDERS: Supervising Provider Obstetrics & Gynecology; Visit Provider Obstetrics & Gynecology
DX: O09.893 Supervision of other high risk pregnancies, third trimester (principal); O42.013 Preterm premature rupture of membranes, onset of labor within 24 hours of rupture, third trimester; O09.293 Supervision of pregnancy with other poor reproductive or obstetric history, third trimester; O34.219 Maternal care for unspecified type scar from previous cesarean delivery; O10.913 Unspecified pre-existing hypertension complicating pregnancy, third trimester; O24.113 Pre-existing type 2 diabetes mellitus, in pregnancy, third trimester; O09.523 Supervision of elderly multigravida, third trimester; Z3A.32 32 weeks gestation of pregnancy; Z79.4 Long term (current) use of insulin; Z79.84 Long term (current) use of oral hypoglycemic drugs; Z79.899 Other long term (current) drug therapy; Z88.8 Allergy status to other drugs, medicaments and biological substances
CPT/HCPCS: 99213; G0463

== ENCOUNTER 2025-01-28 10:09 | Outpatient (RCR) | payer MEDICAID, SELFPAY ==
--- NOTE | 2025-01-10 10:13 | XR_ITS ---
Examination: Biophysical profile, ultrasound Date and time of exam: January 10, 2025, 1038 hours INDICATIONS: Diagnosis high risk , history leaking amniotic fluid, history no movement Technique: Multiple transabdominal sonographic images of the pelvis abdomen obtained. Attention is directed to the breathing movement, gross body movement, amniotic fluid volume and tone. Findings: Amniotic fluid index 15.0 cm Total biophysical profile is 8 of 8. breathing movement is 2. Gross body movement is 2. tone is 2. Qualitative amniotic fluid volume is 2 Impression: Biophysical profile is 8 of 8.
[2025-01-10 11:35] VITALS: BP 179/110; PULSE 85; RESP 16; TEMP 36.7
[2025-01-10 12:19] VITALS: BP 169/92; PULSE 85
[2025-01-10 12:48] LABS: Collection Type, Urine Clean Catch
[2025-01-10 12:51] LABS: Basophils # (Auto) 0.0 Thou/mm3 (0.0-0.2); Basophils % (Auto) 0 % (0-2.5); Eosinophils # (Auto) 0.2 Thou/mm3 (0.0-0.5); Eosinophils % (Auto) 2 % (0-10); Hematocrit 34.3 % (36.0-46.0); Hemoglobin 11.7 g/dL (12.0-16.0); Immature Granulocytes Auto 0.11 Thou/mm3 (0.00-0.00); Lymphocytes # (Auto) 3.1 Thou/mm3 (1.0-4.8); Lymphocytes % (Auto) 30 % (10-50); Mean Corpuscular HGB Conc 34.1 g/dl (31.0-37.0); Mean Corpuscular Hemoglobin 29.3 pg (25.0-35.0); Mean Corpuscular Volume 86 fL (80-100); Monocytes # (Auto) 0.8 Thou/mm3 (0.0-0.8); Monocytes % (Auto) 8 % (0-12); Neutrophils # (Auto) 6.3 Thou/mm3 (1.8-7.7); Neutrophils % (Auto) 60 % (37-80); Nucleated Red Blood Cell # 0.00 Thou/mm3 (0.00-0.00); Nucleated Red Blood Cell % 0 /100 WBC (0); Platelet Count 199 Thou/mm3 (140-440); RDW Standard Deviation 43.6 fL (36.4-46.3); Red Blood Count 4.00 Miln/mm3 (4.00-5.20); White Blood Count 10.6 Thou/mm3 (3.6-11.0)
[2025-01-10 13:12] LABS: Alanine Aminotransferase 13 U/L (10-49); Albumin, Serum 3.7 gm/dL (3.5-5.0); Albumin/Globulin Ratio 1.6 (1.2-2.2); Alkaline Phosphatase 72 U/L (46-116); Anion Gap 14 (7-16); Aspartate Amino Transferase 27 U/L (0-34); BUN/Creatinine Ratio 13 Ratio (12-20); Bilirubin,Total 0.2 mg/dL (0.3-1.2); Blood Urea Nitrogen 8 mg/dL (9-23); Calcium 10.2 mg/dL (8.3-10.6); Calcium (Corrected) 10.4 mg/dL (8.5-10.1); Carbon Dioxide 21.2 mMol/L (20.0-31.0); Chloride 105 mMol/L (98-107); Creatinine (Component) 0.6 mg/dL (0.6-1.3); Globulin 2.3 gm/dL (2.3-3.5); Glucose 70 mg/dL (74-106); LDH (Lactate Dehydrogenase) 234 U/L (120-246); Osmolality,Calculated 275 (275-295); Potassium 3.8 mMol/L (3.4-5.1); Sodium 140 mMol/L (136-145); Total Protein 6.0 gm/dL (5.7-8.2); Uric Acid 6.1 mg/dL (3.1-7.8); eGFR > 60 See Note
[2025-01-10 13:15] LABS: Bacteria,Urine Rare; Bilirubin,Urine Negative (Negative); Blood,Urine Negative (Negative); Clarity,Urine Clear (Clear/Hazy); Color,Urine Lt-Yellow (Lt Yel-Yel); Glucose, Urine Negative (Negative); Ketones,Urine Negative (Negative); Leukocyte Esterase,Urine Negative (Negative); Nitrite,Urine Negative (Negative); PH,Urine 5.5 (5.0-7.0); Protein,Urine 1+ (Neg - Trace); RBC,Urine 2 /hpf (0-3); Specific Gravity,Urine 1.017 (1.001-1.035); Squamous Epithelial Cell,Urine 5 /hpf (0-5); Urobilinogen,Urine Negative mg/dL (0.0-1.0); WBC,Urine 1 /hpf (0-5)
[2025-01-10 13:19] LABS: Fibrinogen 432 mg/dL (175-375); INR 1.0 (0.9-1.3); Partial Thromboplastin Time 25.1 Seconds (22.0-36.0); Prothrombin Time 10.3 Seconds (9.0-12.2)
[2025-01-10 13:23] LABS: Creatinine,Random Urine 54 mg/dL (30-125); Protein Total, Random Urine 53 mg/dL (1-14)
--- NOTE | 2025-01-17 09:49 | XR_ITS ---
Examination: Biophysical profile, ultrasound Date and time of exam: January 17, 2025, 10:20 a.m. INDICATIONS: Diagnosis high risk , history leaking amniotic fluid history no movement Technique: Multiple transabdominal sonographic images of the pelvis abdomen obtained. Attention is directed to the breathing movement, gross body movement, amniotic fluid volume and tone. Findings: Amniotic fluid index 14.2 cm Total biophysical profile is 8 of 8. breathing movement is 2. Gross body movement is 2. tone is 2. Qualitative amniotic fluid volume is 2 Impression: Biophysical profile is 8 of 8.
[2025-01-17 11:06] VITALS: BP 133/87; PULSE 100; RESP 16; TEMP 36.6
[2025-01-21 09:56] VITALS: BP 135/83; PULSE 100; RESP 17; TEMP 36.7
--- NOTE | 2025-01-24 09:51 | XR_ITS ---
Examination: Biophysical profile, ultrasound Date and time of exam: January 24, 2025, 0928 hours INDICATIONS: Diagnosis -induced hypertension Technique: Multiple transabdominal sonographic images of the pelvis abdomen obtained. Attention is directed to the breathing movement, gross body movement, amniotic fluid volume and tone. Findings: Amniotic fluid index 10.3 cm Total biophysical profile is 8 of 8. breathing movement is 2. Gross body movement is 2. tone is 2. Qualitative amniotic fluid volume is 2 Impression: Biophysical profile is 8 of 8.
[2025-01-24 10:31] VITALS: BP 135/79; PULSE 100; RESP 16; TEMP 36.6
[2025-01-24 11:44] LABS: Protein Total, Urine 101 mg/dL (1-14)
[2025-01-24 12:04] LABS: Protein Total, 24 hr Urine 1667 mg/24hr (<149); Protein Total, Urine Volume 1650 mL/24hr (600-1800)
--- NOTE | 2025-01-28 10:14 | XR_ITS ---
Examination: Biophysical profile, ultrasound Date and time of exam: January 28, 2025, 1004 hours INDICATIONS: -induced hypertension Technique: Multiple transabdominal sonographic images of the pelvis abdomen obtained. Attention is directed to the breathing movement, gross body movement, amniotic fluid volume and tone. Findings: Amniotic fluid index 15 cm Total biophysical profile is 8 of 8. breathing movement is 2. Gross body movement is 2. tone is 2. Qualitative amniotic fluid volume is 2 Impression: Biophysical profile is 8 of 8.
[2025-01-28 10:50] VITALS: BP 143/95; PULSE 86; RESP 16; TEMP 36.8
[2025-01-28 11:51] LABS: Collection Type, Urine Clean Catch
[2025-01-28 12:31] LABS: Basophils # (Auto) 0.0 Thou/mm3 (0.0-0.2); Basophils % (Auto) 1 % (0-2.5); Eosinophils # (Auto) 0.2 Thou/mm3 (0.0-0.5); Eosinophils % (Auto) 3 % (0-10); Hematocrit 32.5 % (36.0-46.0); Hemoglobin 11.2 g/dL (12.0-16.0); Immature Granulocytes Auto 0.04 Thou/mm3 (0.00-0.00); Lymphocytes # (Auto) 2.5 Thou/mm3 (1.0-4.8); Lymphocytes % (Auto) 31 % (10-50); Mean Corpuscular HGB Conc 34.5 g/dl (31.0-37.0); Mean Corpuscular Hemoglobin 29.3 pg (25.0-35.0); Mean Corpuscular Volume 85 fL (80-100); Monocytes # (Auto) 0.5 Thou/mm3 (0.0-0.8); Monocytes % (Auto) 6 % (0-12); Neutrophils # (Auto) 4.9 Thou/mm3 (1.8-7.7); Neutrophils % (Auto) 59 % (37-80); Nucleated Red Blood Cell # 0.00 Thou/mm3 (0.00-0.00); Nucleated Red Blood Cell % 0 /100 WBC (0); Platelet Count 184 Thou/mm3 (140-440); RDW Standard Deviation 43.2 fL (36.4-46.3); Red Blood Count 3.82 Miln/mm3 (4.00-5.20); White Blood Count 8.2 Thou/mm3 (3.6-11.0)
[2025-01-28 12:44] LABS: Fibrinogen 398 mg/dL (175-375); INR 1.0 (0.9-1.3); Partial Thromboplastin Time 26.1 Seconds (22.0-36.0); Prothrombin Time 10.6 Seconds (9.0-12.2)
[2025-01-28 12:48] LABS: Alanine Aminotransferase 19 U/L (10-49); Albumin, Serum 3.5 gm/dL (3.5-5.0); Albumin/Globulin Ratio 1.9 (1.2-2.2); Alkaline Phosphatase 85 U/L (46-116); Anion Gap 9 (7-16); Aspartate Amino Transferase 23 U/L (0-34); BUN/Creatinine Ratio 15 Ratio (12-20); Bilirubin,Total 0.2 mg/dL (0.3-1.2); Blood Urea Nitrogen 9 mg/dL (9-23); Calcium 9.5 mg/dL (8.3-10.6); Calcium (Corrected) 9.9 mg/dL (8.5-10.1); Carbon Dioxide 23.5 mMol/L (20.0-31.0); Chloride 107 mMol/L (98-107); Creatinine (Component) 0.6 mg/dL (0.6-1.3); Globulin 1.8 gm/dL (2.3-3.5); Glucose 102 mg/dL (74-106); LDH (Lactate Dehydrogenase) 203 U/L (120-246); Osmolality,Calculated 276 (275-295); Potassium 4.2 mMol/L (3.4-5.1); Sodium 139 mMol/L (136-145); Total Protein 5.3 gm/dL (5.7-8.2); Uric Acid 6.5 mg/dL (3.1-7.8); eGFR > 60 See Note
[2025-01-28 12:55] LABS: Bacteria,Urine 2+; Bilirubin,Urine Negative (Negative); Blood,Urine Trace (Negative); Color,Urine Yellow (Lt Yel-Yel); Glucose, Urine Trace (Negative); Ketones,Urine Negative (Negative); Leukocyte Esterase,Urine Negative (Negative); Nitrite,Urine Negative (Negative); PH,Urine 6.0 (5.0-7.0); Protein,Urine 2+ (Neg - Trace); RBC,Urine 1 /hpf (0-3); Specific Gravity,Urine 1.024 (1.001-1.035); Squamous Epithelial Cell,Urine 21 /hpf (0-5); Urobilinogen,Urine Negative mg/dL (0.0-1.0); WBC,Urine 4 /hpf (0-5)
[2025-01-28 12:57] LABS: Clarity,Urine Hazy (Clear/Hazy)
[2025-01-28 13:00] LABS: Creatinine,Random Urine 122 mg/dL (30-125); Protein Total, Random Urine 321 mg/dL (1-14)
--- NOTE | 2025-01-28 13:24 | EVENTNT_ITS ---
Documentation for date of: 01/28/25 Event Note Event Note: The patient is a 34-year-old -0-0-1 previous x 1 presents at 34 weeks for scheduled NST and BPP. Her NST is reactive BPP is normal but her blood pressures were elevated. Patient is an insulin requiring gestational diabetic on large amounts of insulin and on nifedipine 30 twice daily for chronic hypertension. As part of her workup,[facility] labs were drawn and are normal with the exception of a urine/ protein creatinine ratio which corresponds to a 24-hour urine of 3553 mg in 24 hours. Patient has been given steroids in the past. She was apparently transferred to [place] January 10 and stayed a couple days there because they thought she ruptured her membranes. Patient's ARABELLA is 15 today. She did sign tubal ligation papers and has a copy. Another copy was placed in the folder and a third copy will be scanned into medical records. Patient is 100% sure she would like her tubes tied. She is a scheduled repeat for 37 weeks although in light of her elevated 24- hour urine her might have to be moved up. At this point, the patient will be discharged home with close follow-up to return in 3 days for another NST and BPP.
== END 2025-01-28 23:59 | disposition home or self-care (01) ==
LOC: S4S1 10:09
PROVIDERS: Obstetrics & Gynecology; Referring Provider Obstetrics & Gynecology; Visit Provider Obstetrics & Gynecology
DX: O10.913 Unspecified pre-existing hypertension complicating pregnancy, third trimester (principal); O24.813 Other pre-existing diabetes mellitus in pregnancy, third trimester; E13.9 Other specified diabetes mellitus without complications; O09.523 Supervision of elderly multigravida, third trimester; Z3A.34 34 weeks gestation of pregnancy; Z79.4 Long term (current) use of insulin; Z79.84 Long term (current) use of oral hypoglycemic drugs
CPT/HCPCS: 36415; 59025; 76819; 80053; 81001; 82570; 83615; 84156; 84550; 85025; 85384; 85610; 85730; A9270

== ENCOUNTER 2025-01-28 15:01 | Inpatient (IN) | payer MEDICAID, SELFPAY ==
[2025-01-28] VITALS (80 sets, daily range): BP systolic 0–229; BP diastolic 0–115; PULSE 80–105; RESP 13–29; TEMP 36.7–36.8; O2SAT 97–100; BMI 42.9
[2025-01-28 15:41] LABS: ROM Kit Exp Date# 04/11/28; ROM Kit Lot # 58106258; ROM Swab Mixed By: LAUTH; Rupture of Fetal Membranes Positive (Negative); Swb Mxed in Solvent 1 min? Yes
[2025-01-28] MEDS: RINGERS LACTATED 1000 ML 1,000 ML 100 ML IV (16:35)
[2025-01-28 18:55] LABS: Syphilis Nonreactive (Nonreactive)
[2025-01-28] MEDS: ceFAZolin/D5W 2 GM IV 2 GM/100 ML BAG IV (19:31)
[2025-01-28] MEDS: FAMOTIDINE INJ 10 MG/ML VIAL 2 ML 20 MG IV (19:31)
[2025-01-28] MEDS: METOCLOPRAMIDE INJ 5 MG/ML VIAL 2 ML 10 MG IVP (19:40)
--- NOTE | 2025-01-28 19:43 | ESHP_ITS ---
Documentation for date of: 01/28/25 OB Labor/Induct. HPI History of Present Illness Chief complaint: Ruptured membranes : 3 Para: 1 Term pregnancies: 1 pregnancies: 0 Living children: 1 History of Abortions: Spontaneous and Elective: 1 History of Vaginal deliveries: 0 History of sections: Yes History of : No TAPAN: 03/11/25 Gestational Age (weeks): 34 Gestational Age (days): 0 History of present illness: The patient is a 34-year-old -0-1-1 at 34 weeks who was here earlier today for an NST and BPP. She was sent home with close follow-up. The patient states that she was not out of the hospital long when she ruptured her bag. She presented grossly ruptured and her AmniSure was positive. The patient was admit francine. The heart tones were in the 140s with some periods of minimal variability and recurrent variable decelerations. The patient began keith every 2 to 3 minutes. She had a history of x 1. Her blood pressures were also elevated in the 150s to 180s over 90s to 100s. Patient was consented for repeat low-transverse section. Of note she had just signed tubal ligation papers today in OB triage but I explained to the patient we are unable to do this as it has been less than 72 hours since she signed her tubal forms. She is an insulin requiring gestational diabetic and chronic hypertensive. She is currently on large doses of insulin (50 U NPH BID and Novalog 46 U TID) and 30mg of Procardia twice daily. The patient is also on 1000 mg metformin BID. She was consented for a repeat low-transverse section History of Present Dating criteria: LMP confirmed by 2nd trimester US Adequate Care: Yes Ultrasounds: normal mid trimester US Abnormal ultrasound findings: Normal level 2 ultrasound Obstetrical complications: gestational diabetes and preeclampsia Medical complications: other (Morbid obesity) Labs Maternal Blood Type: O Pos Labs: Positive: Rubella Titre, Negative: RPR, Hepatitis B, HIV, Chlamydia and Gonorrhea and Unknown: Herpes Type 1, Herpes Type 2, Group Beta Strep and Covid-19 Review of Systems Review of Systems Narrative Review of Systems: Patient reports ruptured membranes. No bleeding. She reports painful uterine contractions and pressure. Good movement. Past Medical History Surgical History SURGICAL: Positive Section Past Medical History Comments [facility] COMMENT: Patient has been diabetic since age 12 She has hypertension and was started on Procardia approximately 3 to 4 weeks ago. Meds Home Medications and Allergies Home Medications ?Medication ?Instructions ?Recorded ?Confirmed ?Type insulin aspart U-100 100 unit/mL 46 unit subcut TID 01/28/25 History (3 mL) subcutaneous pen (Novolog FlexPen U-100 Insulin aspart) insulin NPH isoph U-100 human 100 50 unit subcut BID 1 01/28/25 History unit/mL (3 mL) subcutaneous pen (Humulin N NPH U-100 Insulin KwikPen) metformin 1,000 mg tablet 1,000 mg PO BID 01/06/25 History nifedipine 30 mg tablet,extended 30 mg PO BID 01/28/25 01/28/25 History release Allergies Allergy/AdvReac Type Severity Reaction Status Date / Time labetalol Allergy Severe Numbness Verified 01/28/25 15:08 OB Exam Physical Exam Vital signs: Pulse Resp BP Pulse Ox 96 19 199/114 H 100 01/28/25 19:39 01/28/25 15:05 01/28/25 19:39 01/28/25 19:39 Constitutional Constitutional: no acute distress Comments: Patient is alert and oriented x 3 she is cooperative. 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 variability: Average (6-10) Contraction frequency (min): Every 3 minutes Tachysystole: No Contraction intensity: Moderate OB Assessment & Plan Assessment and Plan (1) premature rupture of membranes (PPROM) with onset of labor within 24 hours of rupture in third trimester, antepartum: Status: Acute (2) Previous section: Status: Acute Assessment and plan: For elective repeat (3) Chronic hypertension affecting : Status: Acute Assessment and plan: Continue Procardia XL 30 twice daily (4) Advanced maternal age (AMA) in : Status: Acute (5) Morbid obesity with BMI of 45.0-49.9, adult: Status: Acute Assessment and plan: Lovenox (6) Type 2 diabetes mellitus affecting in third trimester, antepartum: Status: Acute Additional Plan Additional Plan Comment: Admit patient. Consent for repeat low-transverse section.
[2025-01-28] MEDS: NIFEdipine XL 30 MG TABCR PO (22:21)
[2025-01-28] MEDS: KETOROLAC INJ 30 MG/ML VIAL IVP (22:37)
[2025-01-29] VITALS (8 sets, daily range): BP systolic 126–147; BP diastolic 84–98; PULSE 79–99; RESP 12–18; TEMP 36.3–36.8; O2SAT 97–98
--- NOTE | 2025-01-29 00:43 | OBDSUM_ITS ---
Data ([facility]) Data Hx Section: Yes Maternal Blood Type: O Pos Rubella Titre: Positive RPR: Non-reactive Labs: Negative: RPR, Hepatitis B, HIV, Chlamydia and Gonorrhea and Unknown: Group Beta Strep : 3 Term: 1 : 0 Livin Abortions: Spontaneous & Theraputic: 1 Delivery Data ([facility]) Labor Data Induction/Augmentation Agent: None ROM date: 01/28/25 ROM time: 14:30 Amniotic membrane rupture type: Spontaneous Amniotic fluid description: Clear Delivery Data EDC: 03/11/25 EDC calculated by:: LMP/early US confirmation Date of arrival to unit: 01/28/25 [place] [place] delivery date: 01/28/25 delivery time: 20:15 Gestational age (weeks): 34 Placenta delivery date: 01/28/25 Placenta delivery time: 20:16 Delivered by: Sofya Kaufman (OB Clinic) Delivery nurse: prince schmitt rn. Amariorn nurse: roland falcon. Calibration Laboratory Technician at delivery: Yes (dr. avalos.) Support person(s) at delivery: fob Other staff at delivery: columba jara crna, gladys monteiro. Delivery Method Delivery method: Low Transverse Presentation: Breech Anesthesia Type Anesthesia Type: Spinal Delivery Room Medications Delivery room medications: Pitocin 20 u IV Placenta Placenta delivery description: Manual Removal Cord blood sent to lab: Yes cord blood collection: Cord Blood Type, Arterial Cord Blood Gas and Venous Cord Blood Gas Episiotomy Episiotomy description: None EBL Estimated blood loss (ml): 400 Umbilical Cord cord description: 3 Vessels and Around Extremity Additional Procedures The op report for further details Complications Complications: None Data ([place]) [facility] Data [facility]'s gender: Male weight (gms): 2650 g Weight (pounds): 5 lbs and 13.5 ozs 1 minute: 7 5 minutes: 9
--- NOTE | 2025-01-29 00:43 | ESOP_ITS ---
Operative Note - SUPERVISOR LATHING Procedure Date of procedure: 01/28/25 Procedure Performed: Repeat low-transverse section Indication: The patient is a 34-year-old -0-1-1 at 34 weeks who presented to triage with ruptured membranes. EDC 03/11/2025. She was keith about every 3 minutes and the baby was having recurrent variable decelerations. The patient was feeling her contractions. Her is complicated by chronic hyper tension and insulin requiring gestational diabetes. As patient was remote from delivery with a category 2 tracing she was consented for a repeat low-transverse section Pre-Op diagnosis: 1. IUP 34 weeks 2. Premature rupture of membranes 3. Category 2 tracing 4. Chronic hypertension on nifedipine 30 twice daily 5. Insulin requiring gestational diabetes 6. Maternal morbid obesity with a BMI of 43 7. labor Post-Op diagnosis: Same and breech presentation Anesthesia type: Spinal Procedure description: After obtaining informed consent, the patient was brought back to the operating room and spinal anesthesia administered. She was then prepped and draped in the dorsal supine position with a leftward tilt in a normal sterile fashion. Her pannus was taped in order to reveal her Pfannenstiel scar. A Beltre catheter was inserted into the patient's bladder. Patient was given 2 g of Ancef by anesthesia. A Pfannenstiel skin incision was made through the patient's prior scar and carried down to the underlying fascia. The fascia was incised the midline and the fascial incision extended lateral using Smith scissors. The superior aspect of the fascia was grasped with Leonor clamps, and the underlying rectus muscles dissected off using blunt and sharp dissection. This was repeated in the inferior aspect the incision. The rectus muscles were the midline and the peritoneum was picked up and entered sharply with Metzenbaums. This was extended superiorly and inferiorly with good visualization of the bladder. A bladder blade was inserted and the uterus was incised in low transverse fashion using a scalpel. The uterine incision was extended lateral using blunt dissection with the surgeon's fingers. The bag stock[place] ruptured and clear fluid was noted. The bladder blade was removed, and the was delivered in a koki breech presentation atraumatically. Delayed cord clamping was performed for approximately 30 seconds to 60 seconds. The cord was then clamped and cut and the infant was handed off the waiting pediatric staff. Dr. Stover, the Casino Cage Manager was present in the OR. Cord blood and cord gases were sent. The placenta was then manually removed, and the uterus exteriorized and cleared of all clots and debris. The uterine incision was repaired using 0 Monocryl in a running locked fashion. A couple of arozob-yr-cyfrl sutures of 2-0 chromic were used to obtain excellent hemostasis. The uterus was returned to the patient's abdominal cavity, and copious irrigation carried out with warm normal saline. The uterine incision was reexamined several times and noted to be hemostatic. After ensuring the rectus muscles were hemostatic, these were reapproximated the midline using a running suture of 0 Monocryl. The fascia was closed with 0 Vicryl in a running fashion. The subcutaneous tissues were irrigated and found to be hemostatic these were reapproximated using running suture of 3-0 plain. The skin was closed with a subcuticular suture of 4-0 Monocryl. The patient tolerated the procedure well, sponge, lap, instrument, and needle counts were correct x 2. The patient went to the recovery area awake and in stable condition. Of note the baby went to the NICU secondary to prematurity but was doing well at the time of delivery. Fluids: crystalloid Fluid amount (mL): 3,000 Urine output (mL): 700 Specimen: none Implants: None Estimated blood loss (ml): 400 Findings: Liveborn male in the koki breech presentation with no nuchal cord and no meconium. The baby did have the cord wrapped around one foot. Apgars were 7 and 9. Weight was 5 pounds 13 ounces. The placenta was complete spontaneous with a velamentous insertion otherwise grossly normal. Uterus, tubes, and ovaries appeared grossly normal. Of note, the lower uterine segment was thick. Also of note there is very little scar tissue present in the patient's abdomen. Complications: none Surgical staff Operation Date: 01/28/25 20:15 Case Staff SEC[employer]OOK [employer] BAKER: Alexei Sky RN First Assistant: Arian Mccain Diagnosis Discharge Diagnosis (1) Type 2 diabetes mellitus affecting in third trimester, antepartum: Status: Acute (2) Morbid obesity with BMI of 45.0-49.9, adult: Status: Acute (3) premature rupture of membranes (PPROM) with onset of labor within 24 hours of rupture in third trimester, antepartum: Status: Acute (4) Previous section: Status: Acute (5) Chronic hypertension affecting : Status: Acute (6) Advanced maternal age (AMA) in : Status: Acute Problem List Completed Was Problem List Reviewed/Reconciled?: Yes
[2025-01-29] MEDS: KETOROLAC INJ 30 MG/ML VIAL IVP ×3 (04:41→19:19)
[2025-01-29] MEDS: OXYTOCIN in NS 20 units 20 UNIT/1,000 ML BAG 125 UNIT IV (05:06)
[2025-01-29 06:02] LABS: Basophils # (Auto) 0.0 Thou/mm3 (0.0-0.2); Basophils % (Auto) 0 % (0-2.5); Eosinophils # (Auto) 0.2 Thou/mm3 (0.0-0.5); Eosinophils % (Auto) 2 % (0-10); Hematocrit 34.0 % (36.0-46.0); Hemoglobin 11.3 g/dL (12.0-16.0); Immature Granulocytes Auto 0.04 Thou/mm3 (0.00-0.00); Lymphocytes # (Auto) 2.6 Thou/mm3 (1.0-4.8); Lymphocytes % (Auto) 26 % (10-50); Mean Corpuscular HGB Conc 33.2 g/dl (31.0-37.0); Mean Corpuscular Hemoglobin 28.5 pg (25.0-35.0); Mean Corpuscular Volume 86 fL (80-100); Monocytes # (Auto) 0.7 Thou/mm3 (0.0-0.8); Monocytes % (Auto) 7 % (0-12); Neutrophils # (Auto) 6.6 Thou/mm3 (1.8-7.7); Neutrophils % (Auto) 65 % (37-80); Nucleated Red Blood Cell # 0.00 Thou/mm3 (0.00-0.00); Nucleated Red Blood Cell % 0 /100 WBC (0); Platelet Count 172 Thou/mm3 (140-440); RDW Standard Deviation 43.8 fL (36.4-46.3); Red Blood Count 3.96 Miln/mm3 (4.00-5.20); White Blood Count 10.2 Thou/mm3 (3.6-11.0)
[2025-01-29 06:05] LABS: Anion Gap 10 (7-16); BUN/Creatinine Ratio 12 Ratio (12-20); Blood Urea Nitrogen 6 mg/dL (9-23); Calcium 8.2 mg/dL (8.3-10.6); Carbon Dioxide 25.0 mMol/L (20.0-31.0); Chloride 104 mMol/L (98-107); Creatinine (Component) 0.5 mg/dL (0.6-1.3); Estimated Creatinine Clearance 198.9 mL/min (>60); Glucose 81 mg/dL (74-106); Osmolality,Calculated 274 (275-295); Potassium 4.1 mMol/L (3.4-5.1); Sodium 139 mMol/L (136-145); eGFR > 60 See Note
[2025-01-29 08:20] LABS: Amphetamine/Metham Scrn,Ur OB Negative (Negative); Benzoylecgonine Screen, Ur OB Negative (Negative); Opiate Screen,Urine OB Negative (Negative); THC Screen,Urine OB Negative (Negative)
[2025-01-29] MEDS: NIFEdipine XL 30 MG TABCR PO ×2 (08:40→20:59)
[2025-01-29] MEDS: DOCUSATE SOD 100 MG CAPSULE PO (08:40)
[2025-01-29] MEDS: ENOXAPARIN SOD INJ 40 MG/0.4 ML SYRINGE SC (08:41)
[2025-01-29] MEDS: RINGERS LACTATED 1000 ML 1,000 ML 100 ML IV (20:58)
[2025-01-30 01:00] VITALS: BP 143/94; PULSE 88; RESP 18; TEMP 36.6; O2SAT 97
[2025-01-30] MEDS: KETOROLAC INJ 30 MG/ML VIAL IVP (01:32)
[2025-01-30 04:00] VITALS: BP 137/98; PULSE 95; RESP 18; TEMP 36.4; O2SAT 97
[2025-01-30] MEDS: HYDROcodone/APAP 5/325 TABLET 1 TAB PO ×4 (04:58→20:59)
[2025-01-30 05:14] LABS: Basophils # (Auto) 0.0 Thou/mm3 (0.0-0.2); Basophils % (Auto) 0 % (0-2.5); Eosinophils # (Auto) 0.2 Thou/mm3 (0.0-0.5); Eosinophils % (Auto) 3 % (0-10); Hematocrit 30.0 % (36.0-46.0); Hemoglobin 10.0 g/dL (12.0-16.0); Immature Granulocytes Auto 0.07 Thou/mm3 (0.00-0.00); Lymphocytes # (Auto) 2.2 Thou/mm3 (1.0-4.8); Lymphocytes % (Auto) 27 % (10-50); Mean Corpuscular HGB Conc 33.3 g/dl (31.0-37.0); Mean Corpuscular Hemoglobin 29.0 pg (25.0-35.0); Mean Corpuscular Volume 87 fL (80-100); Monocytes # (Auto) 0.6 Thou/mm3 (0.0-0.8); Monocytes % (Auto) 7 % (0-12); Neutrophils # (Auto) 5.0 Thou/mm3 (1.8-7.7); Neutrophils % (Auto) 62 % (37-80); Nucleated Red Blood Cell # 0.00 Thou/mm3 (0.00-0.00); Nucleated Red Blood Cell % 0 /100 WBC (0); Platelet Count 177 Thou/mm3 (140-440); RDW Standard Deviation 44.6 fL (36.4-46.3); Red Blood Count 3.45 Miln/mm3 (4.00-5.20); White Blood Count 8.1 Thou/mm3 (3.6-11.0)
--- NOTE | 2025-01-30 07:58 | CHAP ---
Patient ws visited by a Spiritual Care Volunteer on 01/29/2025 between 0900 and 1200 and received comfort, encouragement and/or prayer. Patient also received a blessing on infant and family.
[2025-01-30 08:00] VITALS: BP 106/70; PULSE 92; RESP 18; TEMP 36.3; O2SAT 99
[2025-01-30] MEDS: ENOXAPARIN SOD INJ 40 MG/0.4 ML SYRINGE SC (08:30)
[2025-01-30] MEDS: DOCUSATE SOD 100 MG CAPSULE PO (08:31)
[2025-01-30 16:50] VITALS: BP 142/93; PULSE 92; RESP 17; TEMP 37.1; O2SAT 98
[2025-01-30 20:59] VITALS: BP 143/89; PULSE 99
[2025-01-30] MEDS: NIFEdipine XL 30 MG TABCR PO (20:59)
[2025-01-30 23:03] VITALS: BP 143/89; PULSE 99; RESP 18; TEMP 36.8; O2SAT 98
[2025-01-31] MEDS: IBUPROFEN TAB 400 MG TABLET 800 MG PO (03:10)
[2025-01-31 04:05] VITALS: BP 141/91; PULSE 97; RESP 18; TEMP 36.6; O2SAT 98
[2025-01-31 08:20] VITALS: BP 140/92; PULSE 101; RESP 18; TEMP 36.7; O2SAT 97
[2025-01-31] MEDS: ENOXAPARIN SOD INJ 40 MG/0.4 ML SYRINGE SC (08:24)
[2025-01-31] MEDS: DOCUSATE SOD 100 MG CAPSULE PO (08:24)
[2025-01-31 08:39] VITALS: BP 140/92; PULSE 101
[2025-01-31] MEDS: NIFEdipine XL 30 MG TABCR PO (08:39)
[2025-01-31] MEDS: INSULIN NPH 1 UNIT/0.01 ML (PER UNIT) 20 UNIT SC (08:40)
--- NOTE | 2025-01-31 14:01 | ESDS_ITS ---
DS: Providers Provider Date of admission: 01/28/25 16:25 Primary care physician: Physician No Primary/Family Admitting Provider: Sofya Kaufman MD ([facility]) Attending Provider on Admission: Adams Cohen MD Consults: 01/28/25 21:53 Referral Routine Comment: Attending Provider on DC: Marcelina Cooley MD Discharging Provider: Marcelina Cooley MD Anticipated date of discharge: 01/31/25 DS: Diagnosis Discharge Diagnosis (1) Type 2 diabetes mellitus affecting in third trimester, antepartum: Status: Acute (2) Morbid obesity with BMI of 45.0-49.9, adult: Status: Acute (3) delivery delivered: Status: Acute (4) Chronic hypertension affecting : Status: Acute (5) Advanced maternal age (AMA) in : Status: Acute Assessment & Plan: Date of procedure: 01/28/25 Procedure Performed: Repeat low-transverse section Indication: The patient is a 34-year-old -0-1-1 at 34 weeks who presented to triage with ruptured membranes. EDC 03/11/2025. She was keith about every 3 minutes and the baby was having recurrent variable decelerations. The patient was feeling her contractions. Her is complicated by chronic hypertension and insulin requiring gestational diabetes. As patient was remote from delivery with a category 2 tracing she was consented for a repeat low- transverse section Pre-Op diagnosis: 1. IUP 34 weeks 2. Premature rupture of membranes 3. Category 2 tracing 4. Chronic hypertension on nifedipine 30 twice daily 5. Insulin requiring gestational diabetes 6. Maternal morbid obesity with a BMI of 43 7. labor Post-Op diagnosis: Same and breech presentation Anesthesia type: Spinal Problem List Completed Was Problem List Reviewed/Reconciled?: Yes Summary/Hosp Course Brief History: The patient is a 34-year-old -0-1-1 at 34 weeks who was here earlier today for an NST and BPP. She was sent home with close follow-up. The patient states that she was not out of the hospital long when she ruptured her bag. She presented grossly ruptured and her AmniSure was positive. The patient was admitted. The heart tones were in the 140s with some periods of minimal variability and recurrent variable decelerations. The patient began keith every 2 to 3 minutes. She had a history of x 1. Her blood pressures were also elevated in the 150s to 180s over 90s to 100s. Patient was consented for repeat low-transverse section. Of note she had just signed tubal ligation papers today in OB triage but I explained to the patient we are unable to do this as it has been less than 72 hours since she signed her tubal forms. She is an insulin requiring gestational diabetic and chronic hypertensive. She is currently on large doses of insulin (50 U NPH BID and Novalog 46 U TID) and 30mg of Procardia twice daily. The patient is also on 1000 mg metformin BID. She was consented for a repeat low-transverse section and it was done on 01/28/2025 / Baby is in NICU at this time Peripartum Data Delivery Method: Low Transverse Episiotomy Description: None Procedures: Procedures Operation Date: 01/28/25 20:15 Actual Procedure Side Surgeon p in OB Bilateral Sofya Kaufman ([facility])MD complications: none Status at Discharge Cognitive/behavioral status at discharge: alert x3 chest clear CVS RRR NO thyromegaly Uterus is nontender Uterus is firm Just below the umbilicus Bowel sounds present Abdomen soft no hernias noted/no CVAT Incision CDI No drainage Appropriately tender No calf tenderness Edema mild She is voiding spontaneously and is passing flatus She is on Procardia Xl 30 mgm po BID and taking sliding scle with meals or 2 units regular insulin and 20 units NPH at 9.30 am Functional status at discharge: independent ambulation Overall status at discharge: patient is progressing back to baseline Time Spent with Patient Time attestation: Total time spent providing and/or coordinating discharge services: Time spent: Greater than 30 minutes Specific discharge activities: care after c section / ambulate / continue Procardia BID 30 mgm and also take 20 units NPH at 09.30 am q day and keep a sugar log , one hour before meals and see her Ob within 1 week / Pelvic rest x 6 weeks Exam Vital Signs Temp Pulse Resp BP Pulse Ox O2 Del Method 98.1 F 101 H 18 140/92 H 97 Room Air 01/31/25 08:20 01/31/25 08:39 01/31/25 08:20 01/31/25 08:39 01/31/25 08:20 01/31/25 08:20 Narrative Exam alert x3 chest clear CVS RRR NO thyromegaly Uterus is nontender Uterus is firm Just below the umbilicus Bowel sounds present Abdomen soft no hernias noted/no CVAT Incision CDI No drainage Appropriately tender No calf tenderness Edema minimal Discharge Plan Plan Patient Disposition: HOME (Self Care) Patient condition on transfer: Benefits outweigh risks Prescriptions/Referrals Prescriptions/Med Rec: New hydrocodone-acetaminophen 5-325 mg Tablet 1 tab PO Q4HR MDD 4 PRN (Reason: Patient rated pain 7 to 8) Qty: 14 0RF metformin 500 mg Tablet 1,000 mg PO BIDAC Qty: 60 0RF Humulin N NPH U-100 Insulin 100 unit/mL Suspension 20 unit SCi QDAY Qty: 10 0RF Rx Instructions: at 0930 am daily nifedipine 30 mg Tablet Extended Release 24hr 30 mg PO BID Qty: 60 0RF ibuprofen 400 mg Tablet 800 mg PO Q8HR PRN (Reason: Pain 1-6 (Mild-Mod) Qty: 30 1RF No Action Classic 28 mg iron- 800 mcg tablet 0.126 - 28 tab PO DAILY 30 Days Qty: 60 2RF (DME) blood pressure test kit-medium Kit See Rx Instructions .Route Qty: 1 0RF Rx Instructions: As directed, 2 times a day metformin 1,000 mg tablet 1,000 mg PO BID Patient Comments: TAKE 1 TABLET BY MOUTH TWICE A DAY WITH MEALS Humulin N NPH Insulin KwikPen 100 unit/mL (3 mL) insulin pen 50 unit subcut BID nifedipine 30 mg tablet extended release 30 mg PO BID insulin aspart U-100 [Novolog FlexPen U-100 Insulin] 100 unit/mL (3 mL) insulin pen 46 unit subcut TID Referrals: No Primary/Family,Physician [Primary Care Provider] Patient/Caregiver Discharge Instructions Discharge Activity: activity as tolerated Other Discharge Activity Instructions:: pelvic rest x 6 weeks / sugar log fasting and one hour before meals and see her Ob provider for follow up / continue nifedipine 30 mgm po BID Take insulin NPH 20 units at 0930 am q day and continue metformin 1000 mg po q day / diabetic diet follow up for BP check with her Ob / clinic within 1 week Other Discharge Diet Instructions: diabetic diet Education Materials: C Section Dc, ED Diet: Diabetes Print Language: Estonian Stand Alone Forms: Gisselle Award Info., Patient Portal Info Letter, LUCINA from Surgery Discharge Order Discharge Orders: Discharge (Routine); Ordered 01/31/25 Ordered By: Marcelina Cooley Planned Discharge Date 01/31/25
[2025-01-31] MEDS: HYDROcodone/APAP 5/325 TABLET 2 TAB PO (15:34)
== END 2025-01-31 16:00 | disposition home or self-care (01) | DRG 540 ==
LOC: S4SX 19:42 → S4NX 19:48
PROVIDERS: Admitting Provider Obstetrics & Gynecology; Visit Provider Obstetrics & Gynecology
PROC: 10D00Z1 Extraction of Products of Conception, Low, Open Approach (ICD-10-PCS; CPT 59514; principal; 2025-01-28 20:00)
DX: O34.211 Maternal care for low transverse scar from previous cesarean delivery (principal); O32.1XX0 Maternal care for breech presentation, not applicable or unspecified; O11.4 Pre-existing hypertension with pre-eclampsia, complicating childbirth; O24.424 Gestational diabetes mellitus in childbirth, insulin controlled; E66.01 Morbid (severe) obesity due to excess calories; O99.214 Obesity complicating childbirth; Z37.0 Single live birth; Z3A.34 34 weeks gestation of pregnancy; O69.82X0 Labor and delivery complicated by other cord entanglement, without compression, not applicable or unspecified; O60.14X0 Preterm labor third trimester with preterm delivery third trimester, not applicable or unspecified; O42.013 Preterm premature rupture of membranes, onset of labor within 24 hours of rupture, third trimester; O76 Abnormality in fetal heart rate and rhythm complicating labor and delivery; Z88.8 Allergy status to other drugs, medicaments and biological substances
CPT/HCPCS: 36415; 80048; 80307; 84112; 85025; 86780; 86850; 86900; 86901; 94762; A4217; A4314; A4649; J0689; J0690; J1650; J1815; J1885; J2274; J2371; J2590; J2765; J3010; J3490; J7050; J7120; A9270; J2270

== ENCOUNTER 2025-02-22 08:56 | Outpatient (AMB) | payer MEDICAID, SELFPAY ==
[2025-02-22 09:19] VITALS: BP 121/82; PULSE 95; RESP 18; TEMP 36.6; O2SAT 98; BMI 40.4
--- NOTE | 2025-02-22 09:19 | AMBOBPPN_ITS ---
Vital Signs 02/22/25 09:19 Height 1.65 m Height Method Stated Weight 110.223 kg Weight Measurement Method Standing Scale BMI 40.4 BP 121/82 Blood Pressure Source Automatic Cuff Blood Pressure Location Left Upper Arm Position Sitting Respiration 18 Pulse 95 Pulse Source Monitor Temp 97.8 F Temp Source Oral Pulse Oximetry (%) 98 Oxygen Delivery Method Room Air Allergies/Home Meds Allergies & Medications Allergies labetalol Allergy (Severe, Verified 02/22/25 09:20) Numbness Medication Reconciliation vits no.126-ferrous fum 28 mg iron-folic acid 800 mcg tablet (Classic ) 0.126 - 28 tab PO DAILY 30 days #60 tabs 07/19/24 [Rx Confirmed 02/22/25] blood pressure test kit-medium #1 ea 11/14/24 [Rx Confirmed 02/22/25] insulin aspart U-100 100 unit/mL (3 mL) subcutaneous pen (Novolog FlexPen U-100 Insulin aspart) 46 unit subcut TID 01/03/25 [History Confirmed 02/22/25] insulin NPH isoph U-100 human 100 unit/mL (3 mL) subcutaneous pen (Humulin N NPH U-100 Insulin KwikPen) 50 unit subcut BID 01/06/25 [History Confirmed 02/22/25] metformin 1,000 mg tablet 1,000 mg PO BID 01/06/25 [History Confirmed 02/22/25] nifedipine 30 mg tablet,extended release 30 mg PO BID 01/28/25 [History Confirmed 02/22/25] hydrocodone 5 mg-acetaminophen 325 mg tablet 1 tab PO Q4HR PRN Patient rated pain 7 to 8 #14 tabs 01/31/25 [Rx Confirmed 02/22/25] ibuprofen 400 mg tablet 800 mg (2 x 400 mg) PO Q8HR PRN Pain 1-6 (Mild-Mod #30 tabs 01/31/25 [Rx Confirmed 02/22/25] insulin NPH isoph U-100 human 100 unit/mL subcutaneous suspension (Humulin N NPH U-100 Insulin (isophane susp)) 20 unit (0.2 mL) SCi QDAY #10 mL 01/31/25 [Rx Confirmed 02/22/25] metformin 500 mg tablet 1,000 mg (2 x 500 mg) PO BIDAC #60 tabs 01/31/25 [Rx Confirmed 02/22/25] nifedipine 30 mg tablet,extended release 24 hr 30 mg PO BID #60 tabs 01/31/25 [Rx Confirmed 02/22/25] Intake Visit Data Collection New Patient or Established: Established Patient (seen at [facility] within 3 years) Reason for Visit:: FOLLOW UP Seen by Clinical Staff ONLY (RN/MA): No Head Of Transport Logistics Required: No Do You Feel Safe at Home: Yes Authorities Contacted: N/A PCP or OBGYN visit in last 3 months: Yes Hx Now: No Are you currently on any form of Control: No Pain Present Currently: No Pain Scale Used: Mccarty-Ohara/Numerical Pain scale:: 0 Smoking Status Smoking Status: Never smoker Immunizations Flu Vaccine in the Last 12 Months: Yes Flu Vaccine 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 Medical History Past Medical History: No Hx Neurological Disorders, No Hx Cardiac Disorders, Yes Hx Hypertension, No Hx Cancer, No Hx Blood Disorders, No Hx Gastrointestinal Disorders, No Hx Renal Disease, No Hx Diabetes Mellitus Type 1 and Yes Hx Diabetes Mellitus Type 2 Questionnaires Covid-19 Vaccine Questionnaire Has patient been vacinated for Covid-19 Have you been vacinated for Covid-19: Yes Social History Living Situation History Lives With: Family Housing: House Tobacco History Smoking Status: Never smoker Second Hand Smoke Exposure: No Alcohol History Alcohol Intake: Never Domestic Abuse History Do You Feel Safe at Home: Yes EPDS - PP Depression Screening [place] Pospartum Depression Screen I have been able to laugh and see the funny side of things: (0) As much as I always could I have looked forward with enjoyment to things: (0) As much as I ever did I have blamed myself unnecessarily when things went wrong: (0) No, never I have been anxious or worried for no good reason: (0) No, not at all I have felt scared or panicky for no very good reason: (0) No, not at all Things have been getting on top of me: (0) No, I have been coping as well as ever I have been so unhappy that I have had difficulty sleeping: (0) No, not at all I have felt sad or miserable: (0) No, not at all I have been so unhappy that I have been crying: (0) No, never The thought of harming myself has occurred to me: (0) Never EPDS completed yes Care OB Visit Log OB Flowsheet Initial Weight: Not Recorded Date -?-?-?-?-?-?-?-?-?-?-?-?- EGA Weight BP Alb Glu CTX Pres Fundal ht FHR Mov Dilation Station Effac ement Hx Notes Visit Note 07/19/24 -?-?-?-?-?-?-?-?-?-?-?-?- 6w 3d absent 33-year -old 2 para 1 for OBI. Previous C- section x 1. Patient is type II diabetic. She takes metformin thousand and NovoLog 38 units and then she also takes Levemir 32 units. Patient stopped ta iron her Ozempic 2 weeks ago. She has a history of irregular menses. Patient had a 6-week ultrasound July 16, 2024 and this dated her March 13, 2025. History of chronic hypertension. Patient takes lisinopril 2.5 daily. She denies any SAB complaints at this time. Denies any nausea and vomiting. The patient is taking vitamins. So I discussed SAB precautions with patient. Consulted with OB regarding medication for chronic hypertension. Patient will be changed to labetalol 200 mg twice daily and that was ordered to pharmacy. I also ordered prenatals. Discussed diet and glucometer testing. SAB precautions reviewed with patient. OB panel with CMP hCG and TSH ordered. And I scheduled patient for MFM referral due to the diabetes and hypertension advanced maternal age. SAB precautions reviewed and patient return in 4 weeks with OB 08/16/24 -?-?-?-?-?-?-?-?-?-?-?-?- 10w 3d 100.754 kg 134/88 30yo @12w5d, severe hyperemesis (recent 5-day admission), low K+, chronic HTN on labetalol/Procardia, bipolar disorder on lamotrigine, insomnia. Plan: continue meds (Phenergan, Zofran, Reglan, Protonix, prednisone), refill prescriptions, labs for genetic testing, welfare note, check FHR by elviso when room available. @10w5d, T2DM on Basag lar/NovoLog, chronic HTN on labetalol. Plan: initial labs incl. NIPT, SMA, CF; vitamins; MFM/nutrition referral if indicated; routine care. 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 Reports nausea, no CTX/LOF/VB, denies SHARMA/VC/RUQ pain. Active lifestyle but difficulty with dietary adherence noted. FHR visualized with motion, bpm not recorded. Labs: UPCR 563, glucose post-meal 219, g enetic labs pending from 01/17. Insulin: Basaglar 40u AM/8u PM, NovoLog 15u TID. Plan: Insulin adjusted to Basaglar 40u BID, NovoLog 20u TID (total daily dose 140u). Patient educated on diabetic diet; food list provided. Encouraged postprandial activity for glucose control. Continue labetalol. Monitor for preeclampsia; preeclampsia panel pending. Await genetic results and MFM referral. Follow up in 2 weeks. 09/17/24 -?-?-?-?-?-?-?-?-?-?-?-?- 15w 0d 105.687 kg 121/81 absent 135 at 15w0d with T2DM and HTN. Reports difficulty with diet adherence and recent postprandial glucose spikes up to 247. Currently on Basaglar 40 BID and NovoLog 20 TID, total 140 units/day. CGM in place. [facility] recommends switch to NPH. Also reports pedal edema, likely multifactorial. NIPT neg, male fetus. Plan: change Basaglar to NPH per MFM, send script, continue CGM, f/u 4wks, await U/S report. 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 Continue routine care 10/19/24 -?-?-?-?-?-?-?-?-?-?-?-?- 19w 4d 109.032 kg 124/84 absent cephalic 155 active - Gladis Costello is presenting for a visit at 19 weeks and 4 days gestation with a past medical history of type 2 diabetes mellitus and chronic hypertension. - She reports her blood sugar numbers ar e getting better since her insulin was changed to NPH per maternal- medicine. - Her highest recent blood sugar was 1 63 today. - She now experiences episodes of low blood sugar. - She reports adherence to dietary modif ications. - She has started feeling some mov ements described as a little bit like tickling. - She has an upcoming appointment at [facility] on November 06. - Continue current insulin regimen with NPH as prescribed by MF - Patient to adjust insulin dosing: redu ce by 2 units if glucose low, increase by 2-3 units if glucose high - Continue current diet management - Follow up appointment at [facility] scheduled for November 06 - Obtain A1c and thyroid panel 1-2 days before next appointment - Lab order provided to patient 11/21/24 -?-?-?-?-?-?-?-?-?-?-?-?- 24w 2d 108.522 kg 126/85 absent cephalic 25 14 2 active - Blood glucose control: - Highest recent blood glucose was 163 , which is lower than previous readings - Patient reports blood sugars have be en okay and more or less the same as last visit - Current diabetes management: - Insulin regimen: 44 units of long-ac ting insulin morning and night (88 units total) - 36 units of fast-acting insulin (Adelaida pro) split into 12 units three times daily - Continuing metformin as prescribed - Continue current insulin regimen: 44 units slow-acting insulin morning and night, 36 units fast-acting insulin split into 12-12-12 - Continue metformin as prescribed - Start aspirin 81mg daily, [id number]-[id number] nter if necessary - Perform A1c test - Follow up in 4 weeks - Continue management with [facility] for diabetes care - Continue current insulin r egimen: 44 units slow-acting insulin morning and night, 36 units fast-acting insulin split into 12-12-12 - Continue metformin as prescribed - Start aspirin 81mg daily, vodf-zvs-vdy nter if necessary - Perform A1c test - Follow up in 4 weeks - Continue management with [facility] for diabetes care. 12/24/24 -?-?-?-?-?-?-?-?-?-?-?-?- 29w 0d 112.264 kg 126/84 absent cephalic 29 14 5 active - She has type 2 diabetes mellitus with suboptimal glycemic control. - Reports glucose levels as high as 24 7 mg/dL, with post-meal readings of 230- 250 mg/dL. - States the more insulin they gave e, it's like the bigger the numbers are. - Recently tried returning to original lower insulin doses (30-something units of NPH) on her own and reports these resulted in normal glucose levels. - [facility] has been co-managing her insulin and diabetes, with recent increases to 88 units of long-acting lispro and 36 units TID of Humalog. - Reports consistent adherence to diet w ith good portion control. - Notes decreased movement over past few days compared to usual activ ity levels. - Baby remains active overall but patien t describes less movement than previously experienced. - Reduce insulin dosage to previous levels for 5-7 days to assess glycemic control - Consider 24-hour hospital admission fo r controlled insulin adjustment if lower dosage is ineffective - Follow up in 2 weeks with diabetic log s - Continue with scheduled repeat e chocardiogram in 4-6 weeks - Await call from hospital for anesthesi a consultation - Continue twice weekly monitoring ( and ) 01/16/25 -?-?-?-?-?-?-?-?-?-?-?-?- 32w 2d 116.176 kg 135/89 absent cephalic 32 14 5 active - She has a past medical history of Type 2 diabetes mellitus and hypertension in . - Patient reports no contractions or oth er obstetric issues at this visit. - Blood sugar control has been generally acceptable with one elevated reading last night reaching over 160 mg/dL after eating pizza. - Current blood sugar reported as 80- something mg/dL at time of visit. - Patient was previously transferred to [facility] for evaluation of possible rupture of membranes, which was ruled out. - She denies any current concerns and reports feeling okay overall. Plan - scheduled at 37 weeks due to blood pressure on 02/21/2025@07:30 AM - Hospital date to be booked and communi cated to patient TAPAN Calculator Estimated Delivery Date Method Current WG Current Estimate 03/11/25 Ultrasound #2 37w 4d Other Estimates 01/12/25 LMP (Uncertain) 45w 6d Notes Visit Date: 01/16/25 Last Updated by: Adams Cohen MD - Date: 01/14/2025 - [facility] ultrasound: Single living fetus at 32 weeks 0 days gestation, estimated weight 2183 grams (83rd percentile), amniotic fluid within normal limits, anatomy and visualized structures normal, placenta anterior with no previa, vertex presentation - Biophysical profile: 8 out of 8 Visit Date: 11/21/24 Last Updated by: Adams Cohen MD - Ultrasound (performed last week, finalized on 11/21/2024)/[facility]: - weight: 579 grams (1 pound 4 ounces) - Gestational age: Consistent with dates - Anatomy survey: Overall normal study Visit Date: 10/19/24 Last Updated by: Adams Cohen MD - Type 2 Diabetes Mellitus - Chronic hypertension - (19 weeks 4 days gestation) Visit Date: 07/19/24 Last Updated by: Jackelyn June CNM 33 yo . irregular menses, sono: 07/16/24: IUP viable, 6 week, EDC 03/13/25 HPI Interval History: Gladis Costello presents for a visit following delivery by repeat section on January 29, 2025. She has a medical history significant for chronic hypertension and morbid obesity with a BMI of 45. Her recent was complicated by premature rupture of membranes at 34 weeks gestation, which led to her delivery at 34 weeks. She has a history of prior section with the most recent being January 29, 2025. She is a patient with an obstetric history of A0 L2. Her delivery was at 34 weeks gestation via repeat section due to premature rupture of membranes. 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 Exam General General Appearance: alert, in no apparent distress and healthy appearing Head Head exam: atraumatic Neck Neck exam: Present normal inspection and trachea midline Chest Chest inspection: Present normal inspection and symmetric chest wall rise External exam: Present normal external exam; Absent tenderness Neuro Neurological exam: Present oriented X3 Psych Psychiatric exam: Present normal affect and normal mood Office Procedures OBC Clinic LOC & Office Proc's Nursing/Assessment Patient Status: Established Patient OB Clinic Nursing Assessment: Medication Reconciliation, Update PMH in EMR and Vital Signs OB Clinic Coordination of Care: Complex Care and Chronic Disease 1-5, Consent,records obtained, informed consent, Education Simp Pt/Fam, 1 Ins Authorization, Lab and Imaging orders, Results/Orders obtained and Staff clarify orders Established Patient Charge Established Patient Point Assignment: 120 Established Patient Point Charge: EP Level 4 (120-155) Injection/Vaccine Admin Admin 1st Vaccine: Yes Office Meds Depo-Provera 150 mg/mL intramuscular syringe Performing Provider: Adams Cohen MD Performing Location: [facility] Administered by: Isabella Escudero MA on 02/22/25 10:02 Dose Route Admin Location Dispensed Lot Number Expiration Date Pack age [facility] Sales Support Representative 150 mg IM RIGHT GLUTE 1 mL [id number] 12/12/25 6994-3699-80 [id number] [facility] Assessment & Plan Diagnosis / Problem List (1) delivery delivered: Status: Acute (2) Encounter for surveillance of injectable contraceptive: Status: Acute Plan status post repeat section: - Delivered via repeat section on 01-29-2025 at 34 weeks gestation following premature rupture of membranes. - Current course requires evaluation with laboratory studies and physical examination to assess recovery and identify any complications. Plan: - Obtain laboratory results. - Perform physical examination. Chronic hypertension: - Established history of chronic hypertension which requires ongoing monitoring in the period. Plan: Morbid obesity: - History of morbid obesity with BMI of 45, which impacts recovery and ongoing health management. Plan:
== END 2025-02-22 09:24 | disposition home or self-care (01) ==
LOC: HODSOBC 08:56
PROVIDERS: Supervising Provider Obstetrics & Gynecology; Visit Provider Obstetrics & Gynecology
DX: Z39.2 Encounter for routine postpartum follow-up (principal); Z30.013 Encounter for initial prescription of injectable contraceptive; O10.93 Unspecified pre-existing hypertension complicating the puerperium; O99.215 Obesity complicating the puerperium; E66.01 Morbid (severe) obesity due to excess calories; O24.13 Pre-existing type 2 diabetes mellitus, in the puerperium; Z79.4 Long term (current) use of insulin; Z79.84 Long term (current) use of oral hypoglycemic drugs; Z79.899 Other long term (current) drug therapy; Z88.8 Allergy status to other drugs, medicaments and biological substances
CPT/HCPCS: 90471; 96372; 99214; J3490; G0463